=== PATIENT | male | born 1965 | race Caucasian/White ===

== ENCOUNTER 2016-02-18 10:34 | Outpatient (RCR) | payer BC, MEDICARE ==
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
[2016-01-02 10:24] LABS: BASOPHILS # (AUTO) 0.1 10^3/uL (0.0-0.1); BASOPHILS % (AUTO) 2 % (0-10); EOSINOPHILS # (AUTO) 0.3 10^3/uL (0.0-0.3); EOSINOPHILS % (AUTO) 5 % (0-10); LYMPHOCYTES # (AUTO) 1.1 X 10^3 (1.0-4.0); LYMPHOCYTES % (AUTO) 17 % (12-44); MEAN CORPUSCULAR HEMOGLOBIN 31 PG (25-34); MEAN CORPUSCULAR HGB CONC 34 G/DL (32-36); MEAN CORPUSCULAR VOLUME 91 FL (80-99); MEAN PLATELET VOLUME 10.2 FL (7.4-10.4); MONOCYTES # (AUTO) 0.2 X 10^3 (0.0-1.0); MONOCYTES % (AUTO) 3 % (0-12); NEUTROPHILS # (AUTO) 4.9 X 10^3 (1.8-7.8); NEUTROPHILS % (AUTO) 74 % (42-75); PLATELET COUNT 250 10^3/uL (130-400); RED BLOOD COUNT 4.42 10^6/uL (4.35-5.85); RED CELL DISTRIBUTION WIDTH 16.6 % (10.0-14.5); WHITE BLOOD COUNT 6.6 10^3/uL (4.3-11.0)
[2016-01-02 10:57] LABS: ANION GAP 9 MMOL/L (5-14); BLOOD UREA NITROGEN 11 MG/DL (7-18); BUN/CREATININE RATIO 13; CALCIUM 9.4 MG/DL (8.5-10.1); CARBON DIOXIDE 28 MMOL/L (21-32); CHLORIDE 103 MMOL/L (98-107); CREATININE SERUM 0.87 MG/DL (0.60-1.30); GFR ESTIMATED > 60; GLUCOSE 120 MG/DL (70-105); POTASSIUM 4.3 MMOL/L (3.6-5.0); SODIUM 140 MMOL/L (135-145)
[2016-01-14 10:47] LABS: BASOPHILS % (AUTO) 1 % (0-10); EOSINOPHILS # (AUTO) 0.5 10^3/uL (0.0-0.3); EOSINOPHILS % (AUTO) 10 % (0-10); LYMPHOCYTES # (AUTO) 1.3 X 10^3 (1.0-4.0); LYMPHOCYTES % (AUTO) 24 % (12-44); MEAN CORPUSCULAR HEMOGLOBIN 30 PG (25-34); MEAN CORPUSCULAR HGB CONC 33 G/DL (32-36); MEAN CORPUSCULAR VOLUME 92 FL (80-99); MEAN PLATELET VOLUME 9.3 FL (7.4-10.4); MONOCYTES # (AUTO) 0.3 X 10^3 (0.0-1.0); MONOCYTES % (AUTO) 5 % (0-12); NEUTROPHILS # (AUTO) 3.2 X 10^3 (1.8-7.8); NEUTROPHILS % (AUTO) 60 % (42-75); PLATELET COUNT 267 10^3/uL (130-400); RED BLOOD COUNT 4.28 10^6/uL (4.35-5.85); RED CELL DISTRIBUTION WIDTH 15.9 % (10.0-14.5); WHITE BLOOD COUNT 5.4 10^3/uL (4.3-11.0)
[2016-01-14 11:18] LABS: ALANINE AMINOTRANSFERASE 38 U/L (0-55); ALBUMIN 4.5 G/DL (3.2-4.5); ANION GAP 11 MMOL/L (5-14); ASPARTATE AMINO TRANSFERASE 30 U/L (5-34); BILIRUBIN,TOTAL 0.3 MG/DL (0.1-1.0); BLOOD UREA NITROGEN 7 MG/DL (7-18); BUN/CREATININE RATIO 8; CALCIUM 8.9 MG/DL (8.5-10.1); CARBON DIOXIDE 27 MMOL/L (21-32); CHLORIDE 103 MMOL/L (98-107); CREATININE SERUM 0.84 MG/DL (0.60-1.30); GFR ESTIMATED > 60; GLUCOSE 114 MG/DL (70-105); LACTATE DEHYDROGENASE 188 U/L (125-220); POTASSIUM 3.8 MMOL/L (3.6-5.0); SODIUM 141 MMOL/L (135-145); TOTAL PROTEIN 6.9 G/DL (6.4-8.2)
[2016-01-22 06:57] LABS: BCR ABL GENE QT SEE FOOTNOTE
[2016-01-29 13:51] LABS: BASOPHILS # (AUTO) 0.1 10^3/uL (0.0-0.1); BASOPHILS % (AUTO) 1 % (0-10); EOSINOPHILS # (AUTO) 0.4 10^3/uL (0.0-0.3); EOSINOPHILS % (AUTO) 7 % (0-10); LYMPHOCYTES % (AUTO) 36 % (12-44); MEAN CORPUSCULAR HEMOGLOBIN 30 PG (25-34); MEAN CORPUSCULAR HGB CONC 33 G/DL (32-36); MEAN CORPUSCULAR VOLUME 91 FL (80-99); MEAN PLATELET VOLUME 10.3 FL (7.4-10.4); MONOCYTES # (AUTO) 0.4 X 10^3 (0.0-1.0); MONOCYTES % (AUTO) 7 % (0-12); NEUTROPHILS # (AUTO) 2.7 X 10^3 (1.8-7.8); NEUTROPHILS % (AUTO) 49 % (42-75); PLATELET COUNT 228 10^3/uL (130-400); RED BLOOD COUNT 4.49 10^6/uL (4.35-5.85); RED CELL DISTRIBUTION WIDTH 15.2 % (10.0-14.5); WHITE BLOOD COUNT 5.5 10^3/uL (4.3-11.0)
[2016-01-29 14:40] LABS: ANION GAP 8 MMOL/L (5-14); BLOOD UREA NITROGEN 8 MG/DL (7-18); BUN/CREATININE RATIO 10; CALCIUM 9.1 MG/DL (8.5-10.1); CARBON DIOXIDE 28 MMOL/L (21-32); CHLORIDE 106 MMOL/L (98-107); CREATININE SERUM 0.84 MG/DL (0.60-1.30); GFR ESTIMATED > 60; GLUCOSE 111 MG/DL (70-105); POTASSIUM 4.3 MMOL/L (3.6-5.0); SODIUM 142 MMOL/L (135-145)
[2016-02-12 13:50] LABS: BASOPHILS % (AUTO) 1 % (0-10); EOSINOPHILS # (AUTO) 0.4 10^3/uL (0.0-0.3); EOSINOPHILS % (AUTO) 6 % (0-10); LYMPHOCYTES # (AUTO) 1.9 X 10^3 (1.0-4.0); LYMPHOCYTES % (AUTO) 29 % (12-44); MEAN CORPUSCULAR HEMOGLOBIN 30 PG (25-34); MEAN CORPUSCULAR HGB CONC 34 G/DL (32-36); MEAN CORPUSCULAR VOLUME 89 FL (80-99); MEAN PLATELET VOLUME 9.8 FL (7.4-10.4); MONOCYTES # (AUTO) 0.3 X 10^3 (0.0-1.0); MONOCYTES % (AUTO) 5 % (0-12); NEUTROPHILS # (AUTO) 3.8 X 10^3 (1.8-7.8); NEUTROPHILS % (AUTO) 59 % (42-75); PLATELET COUNT 198 10^3/uL (130-400); RED CELL DISTRIBUTION WIDTH 15.1 % (10.0-14.5); WHITE BLOOD COUNT 6.5 10^3/uL (4.3-11.0)
[2016-02-12 14:32] LABS: ANION GAP 10 MMOL/L (5-14); BLOOD UREA NITROGEN 7 MG/DL (7-18); BUN/CREATININE RATIO 8; CALCIUM 8.7 MG/DL (8.5-10.1); CARBON DIOXIDE 24 MMOL/L (21-32); CHLORIDE 106 MMOL/L (98-107); CREATININE SERUM 0.86 MG/DL (0.60-1.30); GFR ESTIMATED > 60; GLUCOSE 75 MG/DL (70-105); POTASSIUM 3.5 MMOL/L (3.6-5.0); SODIUM 140 MMOL/L (135-145)
[~2016-02-18 10:34] MED LIST: AC500T PO; ALPR2TAB6 PO; AMIT25TA9; CHOL40002 PO; CLON0.5T60 PO; CTLP20T PO; DULO30CA48 PO; DULO60CA6 PO; ENAL20TA PO; GABA-726 PO; GABA800T PO; HALO0.5T PO; HYOS0.1216 PO; MORP15TA30 PO; OMEP-10 PO; ONDA-42 SL; OXYC1CAP3 PO; SULF-222 PO; TRIA0.2581 PO; ZLP10T PO
[2016-02-18 10:49] LABS: BASOPHILS # (AUTO) 0.1 10^3/uL (0.0-0.1); BASOPHILS % (AUTO) 1 % (0-10); EOSINOPHILS # (AUTO) 0.4 10^3/uL (0.0-0.3); EOSINOPHILS % (AUTO) 7 % (0-10); LYMPHOCYTES # (AUTO) 1.6 X 10^3 (1.0-4.0); LYMPHOCYTES % (AUTO) 28 % (12-44); MEAN CORPUSCULAR HEMOGLOBIN 30 PG (25-34); MEAN CORPUSCULAR HGB CONC 34 G/DL (32-36); MEAN CORPUSCULAR VOLUME 89 FL (80-99); MEAN PLATELET VOLUME 10.5 FL (7.4-10.4); MONOCYTES # (AUTO) 0.3 X 10^3 (0.0-1.0); MONOCYTES % (AUTO) 5 % (0-12); NEUTROPHILS # (AUTO) 3.5 X 10^3 (1.8-7.8); NEUTROPHILS % (AUTO) 59 % (42-75); PLATELET COUNT 208 10^3/uL (130-400); RED BLOOD COUNT 4.81 10^6/uL (4.35-5.85); RED CELL DISTRIBUTION WIDTH 15.1 % (10.0-14.5); WHITE BLOOD COUNT 5.9 10^3/uL (4.3-11.0)
[2016-02-18 11:13] LABS: ALANINE AMINOTRANSFERASE 39 U/L (0-55); ALBUMIN 4.5 G/DL (3.2-4.5); ANION GAP 9 MMOL/L (5-14); ASPARTATE AMINO TRANSFERASE 32 U/L (5-34); BILIRUBIN,TOTAL 0.3 MG/DL (0.1-1.0); BLOOD UREA NITROGEN 8 MG/DL (7-18); BUN/CREATININE RATIO 9; CALCIUM 9.2 MG/DL (8.5-10.1); CARBON DIOXIDE 28 MMOL/L (21-32); CHLORIDE 103 MMOL/L (98-107); CREATININE SERUM 0.88 MG/DL (0.60-1.30); GFR ESTIMATED > 60; GLUCOSE 111 MG/DL (70-105); LACTATE DEHYDROGENASE 166 U/L (125-220); POTASSIUM 4.2 MMOL/L (3.6-5.0); SODIUM 140 MMOL/L (135-145); TOTAL PROTEIN 6.7 G/DL (6.4-8.2)
== END 2016-04-01 | disposition home or self-care (01) ==
LOC: ONC 10:34
PROVIDERS: ATTEND Internal Medicine Hematology & Oncology
DX: C92.10 Chronic myeloid leukemia, BCR/ABL-positive, not having achieved remission (principal); K76.9 Liver disease, unspecified; F32.9 Major depressive disorder, single episode, unspecified; F41.9 Anxiety disorder, unspecified; G62.9 Polyneuropathy, unspecified; Z87.891 Personal history of nicotine dependence; Z79.899 Other long term (current) drug therapy
CPT/HCPCS: 36415; 80048; 80053; 81206; 83615; 85025; 99213

== ENCOUNTER 2016-06-30 10:18 | Outpatient (RCR) | payer MEDICARE, OTHER ==
[2016-04-07 11:36] LABS: BASOPHILS # (AUTO) 0.1 10^3/uL (0.0-0.1); BASOPHILS % (AUTO) 1 % (0-10); EOSINOPHILS # (AUTO) 0.6 10^3/uL (0.0-0.3); EOSINOPHILS % (AUTO) 10 % (0-10); LYMPHOCYTES # (AUTO) 1.9 X 10^3 (1.0-4.0); LYMPHOCYTES % (AUTO) 30 % (12-44); MEAN CORPUSCULAR HEMOGLOBIN 29 PG (25-34); MEAN CORPUSCULAR HGB CONC 34 G/DL (32-36); MEAN CORPUSCULAR VOLUME 86 FL (80-99); MEAN PLATELET VOLUME 9.4 FL (7.4-10.4); MONOCYTES # (AUTO) 0.4 X 10^3 (0.0-1.0); MONOCYTES % (AUTO) 6 % (0-12); NEUTROPHILS # (AUTO) 3.3 X 10^3 (1.8-7.8); NEUTROPHILS % (AUTO) 53 % (42-75); PLATELET COUNT 296 10^3/uL (130-400); RED CELL DISTRIBUTION WIDTH 15.8 % (10.0-14.5); WHITE BLOOD COUNT 6.3 10^3/uL (4.3-11.0)
--- OUTSIDE RECORDS SUMMARY | 2016-04-07 11:39 | XMS REPORT | Continuity of Care Document ---
Author Author [facility] Organization [facility] Address Unknown Phone Unavailable Care Team Providers Care Fabrication Machine Operator Name Role Phone RON TATE MD PCP Insurance Providers Payer Name Policy Number Subscriber Name Relationship [facility] [id number] Janey East 51 Life Partner Wps Medicare [id number] Weston Dias 16 Self / Same As Patient Advance Directives Directive Response Recorded Date/Time Advance Directives No 09/10/15 7:37am Health Care Power of Day Light Relief Operator No 09/10/15 7:37am Organ Donor No 09/10/15 [...] 7:37am Recent Foreign Travel N [place] 02/12/2016 12:53pm Do you dip or chew tobacco? No 09/10/2015 7:37am Hospital Discharge Instructions No hospital discharge instructions. Plan of Care Prescriptions See Medication Section Functional Status No functional status results. Allergies, Adverse Reactions, Alerts Allergen Type Severity Reaction Status Last Updated carbamazepine ([id number]) Allergy Unknown Active 05/04/14 fentanyl ([id number]) Allergy Unknown Active 05/04/14 PCN Allergy Mild Active 12/05/10 Immunizations No immunization records. Vital Signs No known vital signs results. Results Laboratory Results Test Name Result Units Flags Reference Collection Date/Time Result Date/ Time Comments White Blood Count 5.9 10^3/uL 4.3-11.0 02/18/2016 10:46am 02/18/2016 10 :50am Red Blood Count 4.81 10^6/uL 4.35-5.85 02/18/2016 10:46am 02/18/2016 10 :50am Hemoglobin 14.4 G/DL 13.3-17.7 02/18/2016 10:46am 02/18/2016 10:50am Hematocrit 43 % 40-54 02/18/2016 10:46am 02/18/2016 10:50am Mean Corpuscular Volume 89 FL 80-99 02/18/2016 10:46am 02/18/2016 10: 50am Mean Corpuscular Hemoglobin 30 PG 25-34 02/18/2016 10:46am 02/18/2016 10:50am Mean Corpuscular Hemoglobin Concent 34 G/DL 32-36 02/18/2016 10:46am 10:50am Red Cell Distribution Width 15.1 % H 10.0-14.5 02/18/2016 10:46am 2015 10:50am Platelet Count 208 10^3/uL 130-400 02/18/2016 10:46am 02/18/2016 10: 50am Mean Platelet Volume 10.5 FL H 7.4-10.4 02/18/2016 10:46am 02/18/2016 10: 50am Neutrophils (%) (Auto) 59 % 42-75 02/18/2016 10:46am 02/18/2016 10: 50am Lymphocytes (%) (Auto) 28 % 12-44 02/18/2016 10:46am 02/18/2016 10: 50am Monocytes (%) (Auto) 5 % 0-12 02/18/2016 10:46am 02/18/2016 10:50am Eosinophils (%) (Auto) 7 % 0-10 02/18/2016 10:46am 02/18/2016 10:50am Basophils (%) (Auto) 1 % 0-10 02/18/2016 10:46am 02/18/2016 10:50am Neutrophils # (Auto) 3.5 X 10^3 1.8-7.8 02/18/2016 10:46am 02/18/2016 10:50am Lymphocytes # (Auto) 1.6 X 10^3 1.0-4.0 02/18/2016 10:46am 02/18/2016 10:50am Monocytes # (Auto) 0.3 X 10^3 0.0-1.0 02/18/2016 10:46am 02/18/2016 10: 50am Eosinophils # (Auto) 0.4 10^3/uL H 0.0-0.3 02/18/2016 10:46am 02/18/2016 10:50am Basophils # (Auto) 0.1 10^3/uL 0.0-0.1 02/18/2016 10:46am 02/18/2016 10 :50am Sodium Level 140 MMOL/L 135-145 02/18/2016 10:50am 02/18/2016 11:19am Potassium Level 4.2 MMOL/L 3.6-5.0 02/18/2016 10:50am 02/18/2016 11: 19am Chloride Level 103 MMOL/L 98-107 02/18/2016 10:50am 02/18/2016 11:19am Carbon Dioxide Level 28 MMOL/L 21-32 02/18/2016 10:50am 02/18/2016 11: 19am Anion Gap 9 MMOL/L 5-14 02/18/2016 10:50am 02/18/2016 11:19am Blood Urea Nitrogen 8 MG/DL 7-18 02/18/2016 10:50am 02/18/2016 11:19am Creatinine 0.88 MG/DL 0.60-1.30 02/18/2016 10:50am 02/18/2016 11:19am BUN/Creatinine Ratio 9 02/18/2016 10:50am 02/18/2016 11:19am Estimat Glomerular Filtration Rate > 60 02/18/2016 10:50am 2015 11:19am GFR INTERPRETIVE DATA UNITS FOR ESTIMATED GFR (eGFR): mL/min/1.73 M2 REFERENCE RANGE FOR ESTIMATED GFR (eGFR) eGFR NORMAL eGFR >60 MODERATELY DECREASED eGFR 30-59 SEVERLY DECREASED eGFR 15-29 KIDNEY FAILURE <15 (OR DIALYSIS) Glucose Level 111 MG/DL H 70-105 02/18/2016 10:50am 02/18/2016 11:19am Calcium Level 9.2 MG/DL 8.5-10.1 02/18/2016 10:50am 02/18/2016 11:19am Total Bilirubin 0.3 MG/DL 0.1-1.0 02/18/2016 10:50am 02/18/2016 11: 19am Alkaline Phosphatase 111 U/L 40-136 02/18/2016 10:50am 02/18/2016 11: 19am Aspartate Amino Transf (AST/SGOT) 32 U/L 5-34 02/18/2016 10:50am 2015 11:19am Alanine Aminotransferase (ALT/SGPT) 39 U/L 0-55 02/18/2016 10:50am 11:19am Lactate Dehydrogenase 166 U/L 125-220 02/18/2016 10:50am 02/18/2016 11: 19am Total Protein 6.7 G/DL 6.4-8.2 02/18/2016 10:50am 02/18/2016 11:19am Albumin 4.5 G/DL 3.2-4.5 02/18/2016 10:50am 02/18/2016 11:19am Procedures No known history of procedures. Encounters Encounter Location Arrival/Admit Date Discharge/Depart Date Attending Provider Discharged Recurring [facility] 02/18/16 10:34am 11:59pm MATEUSZ WHITNEY MD
[2016-04-07 12:17] LABS: ALANINE AMINOTRANSFERASE 29 U/L (0-55); ALBUMIN 4.4 G/DL (3.2-4.5); ANION GAP 10 MMOL/L (5-14); ASPARTATE AMINO TRANSFERASE 24 U/L (5-34); BILIRUBIN,TOTAL 0.4 MG/DL (0.1-1.0); BLOOD UREA NITROGEN 9 MG/DL (7-18); BUN/CREATININE RATIO 10; CALCIUM 9.2 MG/DL (8.5-10.1); CARBON DIOXIDE 26 MMOL/L (21-32); CHLORIDE 103 MMOL/L (98-107); CREATININE SERUM 0.86 MG/DL (0.60-1.30); GFR ESTIMATED > 60; GLUCOSE 102 MG/DL (70-105); LACTATE DEHYDROGENASE 166 U/L (125-220); POTASSIUM 4.2 MMOL/L (3.6-5.0); SODIUM 139 MMOL/L (135-145); TOTAL PROTEIN 6.8 G/DL (6.4-8.2)
[2016-04-07 17:06] LABS: %SAT TOTAL IRON BINDING CAPIC 23 % (15-50); TIBC 345 ug/dL (280-380)
[2016-04-08 07:36] LABS: FERRITIN 129 ng/mL (25-300); UIBC 264 ug/dL (55-450)
[2016-04-14 07:55] LABS: BCR ABL GENE QT SEE FOOTNOTE
[2016-05-05 13:11] LABS: BASOPHILS % (AUTO) 1 % (0-10); EOSINOPHILS # (AUTO) 0.6 10^3/uL (0.0-0.3); EOSINOPHILS % (AUTO) 9 % (0-10); LYMPHOCYTES # (AUTO) 2.1 X 10^3 (1.0-4.0); LYMPHOCYTES % (AUTO) 33 % (12-44); MEAN CORPUSCULAR HEMOGLOBIN 30 PG (25-34); MEAN CORPUSCULAR HGB CONC 34 G/DL (32-36); MEAN CORPUSCULAR VOLUME 87 FL (80-99); MEAN PLATELET VOLUME 10.2 FL (7.4-10.4); MONOCYTES # (AUTO) 0.3 X 10^3 (0.0-1.0); MONOCYTES % (AUTO) 5 % (0-12); NEUTROPHILS # (AUTO) 3.3 X 10^3 (1.8-7.8); NEUTROPHILS % (AUTO) 53 % (42-75); PLATELET COUNT 241 10^3/uL (130-400); RED CELL DISTRIBUTION WIDTH 17.4 % (10.0-14.5); WHITE BLOOD COUNT 6.2 10^3/uL (4.3-11.0)
[2016-05-05 13:49] LABS: ALANINE AMINOTRANSFERASE 21 U/L (0-55); ALBUMIN 4.2 G/DL (3.2-4.5); ANION GAP 11 MMOL/L (5-14); ASPARTATE AMINO TRANSFERASE 20 U/L (5-34); BILIRUBIN,TOTAL 0.3 MG/DL (0.1-1.0); BLOOD UREA NITROGEN 6 MG/DL (7-18); BUN/CREATININE RATIO 8; CARBON DIOXIDE 23 MMOL/L (21-32); CHLORIDE 106 MMOL/L (98-107); GFR ESTIMATED > 60; GLUCOSE 111 MG/DL (70-105); POTASSIUM 4.1 MMOL/L (3.6-5.0); SODIUM 140 MMOL/L (135-145); TOTAL PROTEIN 6.5 G/DL (6.4-8.2)
[2016-06-02 13:13] LABS: BASOPHILS % (AUTO) 0 % (0-10); EOSINOPHILS # (AUTO) 0.4 10^3/uL (0.0-0.3); EOSINOPHILS % (AUTO) 7 % (0-10); LYMPHOCYTES % (AUTO) 33 % (12-44); MEAN CORPUSCULAR HEMOGLOBIN 30 PG (25-34); MEAN CORPUSCULAR HGB CONC 34 G/DL (32-36); MEAN CORPUSCULAR VOLUME 90 FL (80-99); MEAN PLATELET VOLUME 10.5 FL (7.4-10.4); MONOCYTES # (AUTO) 0.3 X 10^3 (0.0-1.0); MONOCYTES % (AUTO) 4 % (0-12); NEUTROPHILS # (AUTO) 3.3 X 10^3 (1.8-7.8); NEUTROPHILS % (AUTO) 55 % (42-75); PLATELET COUNT 204 10^3/uL (130-400); RED BLOOD COUNT 4.21 10^6/uL (4.35-5.85); RED CELL DISTRIBUTION WIDTH 15.4 % (10.0-14.5); WHITE BLOOD COUNT 5.9 10^3/uL (4.3-11.0)
[2016-06-02 13:54] LABS: ALANINE AMINOTRANSFERASE 19 U/L (0-55); ALBUMIN 4.2 G/DL (3.2-4.5); ANION GAP 9 MMOL/L (5-14); ASPARTATE AMINO TRANSFERASE 18 U/L (5-34); BILIRUBIN,TOTAL 0.3 MG/DL (0.1-1.0); BLOOD UREA NITROGEN 8 MG/DL (7-18); BUN/CREATININE RATIO 9; CALCIUM 9.3 MG/DL (8.5-10.1); CARBON DIOXIDE 27 MMOL/L (21-32); CHLORIDE 106 MMOL/L (98-107); CREATININE SERUM 0.87 MG/DL (0.60-1.30); GFR ESTIMATED > 60; GLUCOSE 103 MG/DL (70-105); POTASSIUM 4.1 MMOL/L (3.6-5.0); SODIUM 142 MMOL/L (135-145); TOTAL PROTEIN 6.6 G/DL (6.4-8.2)
[2016-06-30 10:37] LABS: BASOPHILS % (AUTO) 0 % (0-10); EOSINOPHILS # (AUTO) 0.2 10^3/uL (0.0-0.3); EOSINOPHILS % (AUTO) 4 % (0-10); LYMPHOCYTES # (AUTO) 1.5 X 10^3 (1.0-4.0); LYMPHOCYTES % (AUTO) 24 % (12-44); MEAN CORPUSCULAR HEMOGLOBIN 31 PG (25-34); MEAN CORPUSCULAR HGB CONC 34 G/DL (32-36); MEAN CORPUSCULAR VOLUME 90 FL (80-99); MEAN PLATELET VOLUME 9.9 FL (7.4-10.4); MONOCYTES # (AUTO) 0.3 X 10^3 (0.0-1.0); MONOCYTES % (AUTO) 5 % (0-12); NEUTROPHILS # (AUTO) 4.3 X 10^3 (1.8-7.8); NEUTROPHILS % (AUTO) 67 % (42-75); PLATELET COUNT 260 10^3/uL (130-400); RED BLOOD COUNT 4.32 10^6/uL (4.35-5.85); RED CELL DISTRIBUTION WIDTH 14.2 % (10.0-14.5); WHITE BLOOD COUNT 6.4 10^3/uL (4.3-11.0)
[2016-06-30 11:36] LABS: ALANINE AMINOTRANSFERASE 11 U/L (0-55); ALBUMIN 4.3 G/DL (3.2-4.5); ANION GAP 9 MMOL/L (5-14); ASPARTATE AMINO TRANSFERASE 13 U/L (5-34); BILIRUBIN,TOTAL 0.4 MG/DL (0.1-1.0); BLOOD UREA NITROGEN 12 MG/DL (7-18); BUN/CREATININE RATIO 15; CALCIUM 8.8 MG/DL (8.5-10.1); CARBON DIOXIDE 27 MMOL/L (21-32); CHLORIDE 106 MMOL/L (98-107); CREATININE SERUM 0.81 MG/DL (0.60-1.30); GFR ESTIMATED > 60; GLUCOSE 100 MG/DL (70-105); SODIUM 142 MMOL/L (135-145); TOTAL PROTEIN 6.8 G/DL (6.4-8.2)
[2016-07-08 08:19] LABS: BCR ABL GENE QT SEE FOOTNOTE
== END 2016-07-06 | disposition home or self-care (01) ==
LOC: ONC 10:18
PROVIDERS: ATTEND Internal Medicine Hematology & Oncology
DX: C92.10 Chronic myeloid leukemia, BCR/ABL-positive, not having achieved remission (principal); K76.9 Liver disease, unspecified; F32.9 Major depressive disorder, single episode, unspecified; F41.9 Anxiety disorder, unspecified; G62.9 Polyneuropathy, unspecified; Z87.891 Personal history of nicotine dependence; Z79.899 Other long term (current) drug therapy
CPT/HCPCS: 36415; 80053; 81206; 82728; 83540; 83615; 85025; 99213

== ENCOUNTER 2016-09-22 11:36 | Emergency (ER) | payer MEDICARE, OTHER ==
[~2016-09-22] VITALS: Ht 165.1 cm; Wt 77.3 kg
[2016-09-22] MEDS ORDERED: POLY17PO6 PO (12:06)
[2016-09-22] MEDS ORDERED: IMAT400T PO (12:06)
[2016-09-22 13:09] LABS: BILIRUBIN,URINE NEGATIVE (NEGATIVE); KETONES,URINE NEGATIVE (NEGATIVE); LEUKOCYTE ESTERASE ,URINE NEGATIVE (NEGATIVE); NITRITE,URINE NEGATIVE (NEGATIVE); PH,URINE 8 (5-9); PROTEIN,URINE NEGATIVE (NEGATIVE); UROBILINOGEN,URINE NORMAL (NORMAL)
[2016-09-22 13:10] LABS: BASOPHILS % (AUTO) 0 % (0-10); EOSINOPHILS # (AUTO) 0.3 10^3/uL (0.0-0.3); EOSINOPHILS % (AUTO) 4 % (0-10); LYMPHOCYTES # (AUTO) 1.3 X 10^3 (1.0-4.0); LYMPHOCYTES % (AUTO) 22 % (12-44); MEAN CORPUSCULAR HEMOGLOBIN 30 PG (25-34); MEAN CORPUSCULAR HGB CONC 33 G/DL (32-36); MEAN CORPUSCULAR VOLUME 88 FL (80-99); MEAN PLATELET VOLUME 10.7 FL (7.4-10.4); MONOCYTES # (AUTO) 0.3 X 10^3 (0.0-1.0); MONOCYTES % (AUTO) 5 % (0-12); NEUTROPHILS # (AUTO) 4.2 X 10^3 (1.8-7.8); NEUTROPHILS % (AUTO) 69 % (42-75); PLATELET COUNT 262 10^3/uL (130-400); RED BLOOD COUNT 4.37 10^6/uL (4.35-5.85); RED CELL DISTRIBUTION WIDTH 15.1 % (10.0-14.5)
[2016-09-22 13:25] LABS: ALANINE AMINOTRANSFERASE 13 U/L (0-55); ALBUMIN 4.2 GM/DL (3.2-4.5); ANION GAP 7 MMOL/L (5-14); ASPARTATE AMINO TRANSFERASE 14 U/L (5-34); BILIRUBIN,TOTAL 0.4 MG/DL (0.1-1.0); BLOOD UREA NITROGEN 9 MG/DL (7-18); BUN/CREATININE RATIO 11; CALCIUM 9.3 MG/DL (8.5-10.1); CARBON DIOXIDE 27 MMOL/L (21-32); CHLORIDE 105 MMOL/L (98-107); CREATININE SERUM 0.83 MG/DL (0.60-1.30); GFR ESTIMATED > 60; GLUCOSE 104 MG/DL (70-105); LIPASE 25 U/L (8-78); POTASSIUM 4.1 MMOL/L (3.6-5.0); SODIUM 139 MMOL/L (135-145); TOTAL PROTEIN 7.1 GM/DL (6.4-8.2); hs C REACTIVE PROTEIN 2.12 MG/DL (0.00-0.50)
[2016-09-22] MEDS ORDERED: IOHEXOL 350 MG/ML 100 ML (OMNIPAQUE 350) VIAL IV ONE (13:45)
[2016-09-22] MEDS ORDERED: NS 100 ML (IVPB) BAG IV ONE (13:45)
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
[2016-09-22] MEDS ORDERED: HYOSCYAMINE 0.125 MG (LEVSIN) TAB SL ONE (14:30)
[2016-09-22] MEDS ORDERED: KETOROLAC 30 MG/ML VIAL IVP ONE (14:30)
[2016-09-22] MEDS ORDERED: RX-HYOSCYAMINE 0.125 MG SL (LEVSIN) PPK#6 SL STA (15:20)
[2016-09-22] MEDS ORDERED: HYOS0.1283 SL (15:25)
[2016-09-22] MEDS ORDERED: SULF1TAB35 PO (15:26)
[2016-09-22] MEDS ORDERED: TRIM/SULFAMETH 160/800 (SEPTRA DS) TAB PO ONE (15:30)
[2016-09-22 15:40] VITALS: BP 116/75
== END 2016-09-22 15:39 | disposition home or self-care (01) ==
LOC: EDUNIT# 11:36 → ER 11:40
DX: T81.4XXA Infection following a procedure, initial encounter (principal); L08.9 Local infection of the skin and subcutaneous tissue, unspecified; I25.10 Atherosclerotic heart disease of native coronary artery without angina pectoris; F41.9 Anxiety disorder, unspecified; I10 Essential (primary) hypertension; K21.9 Gastro-esophageal reflux disease without esophagitis; F17.210 Nicotine dependence, cigarettes, uncomplicated; Z93.3 Colostomy status; Z85.6 Personal history of leukemia; Z87.828 Personal history of other (healed) physical injury and trauma; Z98.890 Other specified postprocedural states
CPT/HCPCS: 36415; 74177; 80053; 81000; 83690; 85025; 86141; 87070; 87205; 96374

== ENCOUNTER 2016-10-13 13:14 | Outpatient (RCR) | payer MEDICARE ==
[2016-08-04 11:04] LABS: BASOPHILS % (AUTO) 0 % (0-10); EOSINOPHILS # (AUTO) 0.5 10^3/uL (0.0-0.3); EOSINOPHILS % (AUTO) 7 % (0-10); LYMPHOCYTES # (AUTO) 2.1 X 10^3 (1.0-4.0); LYMPHOCYTES % (AUTO) 27 % (12-44); MEAN CORPUSCULAR HEMOGLOBIN 30 PG (25-34); MEAN CORPUSCULAR HGB CONC 34 G/DL (32-36); MEAN CORPUSCULAR VOLUME 90 FL (80-99); MEAN PLATELET VOLUME 10.1 FL (7.4-10.4); MONOCYTES # (AUTO) 0.3 X 10^3 (0.0-1.0); MONOCYTES % (AUTO) 4 % (0-12); NEUTROPHILS # (AUTO) 4.8 X 10^3 (1.8-7.8); NEUTROPHILS % (AUTO) 62 % (42-75); PLATELET COUNT 261 10^3/uL (130-400); RED BLOOD COUNT 4.27 10^6/uL (4.35-5.85); RED CELL DISTRIBUTION WIDTH 15.2 % (10.0-14.5); WHITE BLOOD COUNT 7.7 10^3/uL (4.3-11.0)
[2016-08-04 11:52] LABS: ALANINE AMINOTRANSFERASE 16 U/L (0-55); ALBUMIN 4.2 G/DL (3.2-4.5); ANION GAP 8 MMOL/L (5-14); ASPARTATE AMINO TRANSFERASE 17 U/L (5-34); BILIRUBIN,TOTAL 0.3 MG/DL (0.1-1.0); BLOOD UREA NITROGEN 8 MG/DL (7-18); BUN/CREATININE RATIO 9; CALCIUM 9.4 MG/DL (8.5-10.1); CARBON DIOXIDE 30 MMOL/L (21-32); CHLORIDE 105 MMOL/L (98-107); CREATININE SERUM 0.86 MG/DL (0.60-1.30); GFR ESTIMATED > 60; GLUCOSE 96 MG/DL (70-105); POTASSIUM 4.1 MMOL/L (3.6-5.0); SODIUM 143 MMOL/L (135-145); TOTAL PROTEIN 6.6 G/DL (6.4-8.2)
[2016-08-25 14:32] LABS: BASOPHILS % (AUTO) 1 % (0-10); EOSINOPHILS # (AUTO) 0.4 10^3/uL (0.0-0.3); EOSINOPHILS % (AUTO) 6 % (0-10); LYMPHOCYTES # (AUTO) 1.7 X 10^3 (1.0-4.0); LYMPHOCYTES % (AUTO) 27 % (12-44); MEAN CORPUSCULAR HEMOGLOBIN 30 PG (25-34); MEAN CORPUSCULAR HGB CONC 34 G/DL (32-36); MEAN CORPUSCULAR VOLUME 88 FL (80-99); MEAN PLATELET VOLUME 10.4 FL (7.4-10.4); MONOCYTES # (AUTO) 0.5 X 10^3 (0.0-1.0); MONOCYTES % (AUTO) 7 % (0-12); NEUTROPHILS # (AUTO) 3.7 X 10^3 (1.8-7.8); NEUTROPHILS % (AUTO) 59 % (42-75); PLATELET COUNT 242 10^3/uL (130-400); RED CELL DISTRIBUTION WIDTH 15.8 % (10.0-14.5); WHITE BLOOD COUNT 6.2 10^3/uL (4.3-11.0)
[2016-08-25 15:06] LABS: ALANINE AMINOTRANSFERASE 9 U/L (0-55); ALBUMIN 4.1 G/DL (3.2-4.5); ANION GAP 10 MMOL/L (5-14); ASPARTATE AMINO TRANSFERASE 11 U/L (5-34); BILIRUBIN,TOTAL 0.3 MG/DL (0.1-1.0); BLOOD UREA NITROGEN 12 MG/DL (7-18); BUN/CREATININE RATIO 14; CALCIUM 9.1 MG/DL (8.5-10.1); CARBON DIOXIDE 27 MMOL/L (21-32); CHLORIDE 106 MMOL/L (98-107); CREATININE SERUM 0.86 MG/DL (0.60-1.30); GFR ESTIMATED > 60; GLUCOSE 98 MG/DL (70-105); POTASSIUM 4.3 MMOL/L (3.6-5.0); SODIUM 143 MMOL/L (135-145); TOTAL PROTEIN 6.5 G/DL (6.4-8.2)
[~2016-10-13 13:14] MED LIST changes: +HYOS0.1283 SL; +IMAT400T PO; +POLY17PO6 PO; +SULF1TAB35 PO
[2016-10-13 13:57] LABS: BASOPHILS % (AUTO) 1 % (0-10); EOSINOPHILS # (AUTO) 0.4 10^3/uL (0.0-0.3); EOSINOPHILS % (AUTO) 8 % (0-10); LYMPHOCYTES # (AUTO) 2.1 X 10^3 (1.0-4.0); LYMPHOCYTES % (AUTO) 39 % (12-44); MEAN CORPUSCULAR HEMOGLOBIN 30 PG (25-34); MEAN CORPUSCULAR HGB CONC 33 G/DL (32-36); MEAN CORPUSCULAR VOLUME 91 FL (80-99); MEAN PLATELET VOLUME 9.9 FL (7.4-10.4); MONOCYTES # (AUTO) 0.3 X 10^3 (0.0-1.0); MONOCYTES % (AUTO) 6 % (0-12); NEUTROPHILS # (AUTO) 2.5 X 10^3 (1.8-7.8); NEUTROPHILS % (AUTO) 47 % (42-75); PLATELET COUNT 237 10^3/uL (130-400); RED BLOOD COUNT 3.76 10^6/uL (4.35-5.85); RED CELL DISTRIBUTION WIDTH 16.4 % (10.0-14.5); WHITE BLOOD COUNT 5.3 10^3/uL (4.3-11.0)
[2016-10-13 14:27] LABS: ALANINE AMINOTRANSFERASE 14 U/L (0-55); ALBUMIN 4.1 GM/DL (3.2-4.5); ANION GAP 10 MMOL/L (5-14); ASPARTATE AMINO TRANSFERASE 15 U/L (5-34); BILIRUBIN,TOTAL 0.2 MG/DL (0.1-1.0); BLOOD UREA NITROGEN 10 MG/DL (7-18); BUN/CREATININE RATIO 12; CALCIUM 8.6 MG/DL (8.5-10.1); CARBON DIOXIDE 24 MMOL/L (21-32); CHLORIDE 105 MMOL/L (98-107); CREATININE SERUM 0.84 MG/DL (0.60-1.30); GFR ESTIMATED > 60; GLUCOSE 84 MG/DL (70-105); POTASSIUM 3.8 MMOL/L (3.6-5.0); SODIUM 139 MMOL/L (135-145); TOTAL PROTEIN 6.4 GM/DL (6.4-8.2)
[2016-10-20 16:04] LABS: BCR ABL GENE QT See Report
== END 2016-11-02 | disposition home or self-care (01) ==
LOC: ONC 13:14
PROVIDERS: ATTEND Internal Medicine Hematology & Oncology
DX: C92.10 Chronic myeloid leukemia, BCR/ABL-positive, not having achieved remission (principal); D64.9 Anemia, unspecified; K76.9 Liver disease, unspecified; F32.9 Major depressive disorder, single episode, unspecified; F41.9 Anxiety disorder, unspecified; G62.9 Polyneuropathy, unspecified; R42 Dizziness and giddiness; Z87.891 Personal history of nicotine dependence; Z79.899 Other long term (current) drug therapy
CPT/HCPCS: 36415; 80053; 81206; 82728; 83540; 85025; 99213

== ENCOUNTER 2016-11-13 08:42 | Outpatient (RCR) | payer MEDICARE, OTHER ==
[2016-11-13 08:40] LABS: BASOPHILS % (AUTO) 1 % (0-10); EOSINOPHILS # (AUTO) 0.7 10^3/uL (0.0-0.3); EOSINOPHILS % (AUTO) 10 % (0-10); LYMPHOCYTES # (AUTO) 2.3 X 10^3 (1.0-4.0); LYMPHOCYTES % (AUTO) 31 % (12-44); MEAN CORPUSCULAR HEMOGLOBIN 31 PG (25-34); MEAN CORPUSCULAR HGB CONC 34 G/DL (32-36); MEAN CORPUSCULAR VOLUME 91 FL (80-99); MEAN PLATELET VOLUME 11.1 FL (7.4-10.4); MONOCYTES # (AUTO) 0.4 X 10^3 (0.0-1.0); MONOCYTES % (AUTO) 5 % (0-12); NEUTROPHILS # (AUTO) 3.8 X 10^3 (1.8-7.8); NEUTROPHILS % (AUTO) 53 % (42-75); PLATELET COUNT 222 10^3/uL (130-400); RED BLOOD COUNT 4.41 10^6/uL (4.35-5.85); RED CELL DISTRIBUTION WIDTH 15.5 % (10.0-14.5); WHITE BLOOD COUNT 7.2 10^3/uL (4.3-11.0)
[~2016-11-13 08:42] MED LIST changes: -CATHETER FLUSH 10 ML SYR IV PRN; -IOHEXOL 350 MG/ML 100 ML (OMNIPAQUE 350) VIAL IV ONE; -NS 100 ML (IVPB) BAG IV ONE
[2016-11-13 09:03] LABS: ALANINE AMINOTRANSFERASE 11 U/L (0-55); ALBUMIN 4.1 GM/DL (3.2-4.5); ANION GAP 8 MMOL/L (5-14); ASPARTATE AMINO TRANSFERASE 17 U/L (5-34); BILIRUBIN,TOTAL 0.2 MG/DL (0.1-1.0); BLOOD UREA NITROGEN 11 MG/DL (7-18); BUN/CREATININE RATIO 13; CALCIUM 8.6 MG/DL (8.5-10.1); CARBON DIOXIDE 26 MMOL/L (21-32); CHLORIDE 106 MMOL/L (98-107); CREATININE SERUM 0.84 MG/DL (0.60-1.30); GFR ESTIMATED > 60; GLUCOSE 105 MG/DL (70-105); SODIUM 140 MMOL/L (135-145); TOTAL PROTEIN 6.2 GM/DL (6.4-8.2)
== END 2016-12-19 | disposition home or self-care (01) ==
LOC: ONC 08:42
PROVIDERS: ATTEND Internal Medicine Hematology & Oncology
DX: K76.9 Liver disease, unspecified; Z87.891 Personal history of nicotine dependence; Z79.899 Other long term (current) drug therapy; D64.9 Anemia, unspecified; C92.10 Chronic myeloid leukemia, BCR/ABL-positive, not having achieved remission; R42 Dizziness and giddiness; F41.9 Anxiety disorder, unspecified; F32.9 Major depressive disorder, single episode, unspecified; G62.9 Polyneuropathy, unspecified
CPT/HCPCS: 80053; 85025

== ENCOUNTER → 2016-11-13 | Outpatient (CLI) | payer MEDICARE, OTHER ==
[~2016-11-13] MED LIST changes: +CATHETER FLUSH 10 ML SYR IV PRN; +IOHEXOL 350 MG/ML 100 ML (OMNIPAQUE 350) VIAL IV ONE; +NS 100 ML (IVPB) BAG IV ONE
--- NOTE | 2016-11-13 14:37 | Diagnostic Imaging Report ---
PROCEDURE: CT cervical spine with and without contrast. TECHNIQUE: Multiple axial images were obtained through the cervical spine with and without intravenous contrast, with two dimensional reconstructions INDICATION: Neck pain. FINDINGS: The reconstructed parasagittal images show reversal of the normal lordosis of the cervical spine. The reversal of the normal lordosis of the cervical spine is even more pronounced than noted on the prior CT cervical spine exam of 02/22/15. As seen on the prior exam, there is near-complete obliteration of the disc space at C4-C5. This may be related to the so-called "block vertebra" a failure segmentation and a congenital anomaly. There is also severe narrowing of the disc space at C5-C6 and to a lesser extent C6-C7. These findings are similar to the prior exam. There does seem to be mild narrowing of the thecal sac at the C5-C6 and C6-C7 levels and there is also narrowing of the neuroforamen on the left at both of these levels. There is no fracture or acute bony abnormality identified. There is no sign of retropharyngeal edema. The thyroid gland is generally unremarkable. The lung apices are clear. IMPRESSION: 1. There is no evidence for an acute bony abnormality. 2. 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 3. The degenerative disc and bony disease at C5-C6 and C6-C7 seen on the prior study has not progressed. There is mild central stenosis at both of these levels and narrowing of the neuroforamen on the left. Dictated by: Dictated on workstation # [id number]
== END ==
LOC: RAD 08:12
PROVIDERS: ATTEND Family Medicine
DX: M50.322 Other cervical disc degeneration at C5-C6 level (principal); M53.82 Other specified dorsopathies, cervical region
CPT/HCPCS: 72127

== ENCOUNTER 2017-01-05 11:18 | Outpatient (RCR) | payer MEDICARE, OTHER ==
[2017-01-05 11:26] LABS: BASOPHILS % (AUTO) 0 % (0-10); EOSINOPHILS # (AUTO) 0.3 10^3/uL (0.0-0.3); EOSINOPHILS % (AUTO) 5 % (0-10); HEMATOCRIT 38 % (40-54); HEMOGLOBIN 12.8 G/DL (13.3-17.7); LYMPHOCYTES # (AUTO) 1.6 X 10^3 (1.0-4.0); LYMPHOCYTES % (AUTO) 28 % (12-44); MEAN CORPUSCULAR HEMOGLOBIN 31 PG (25-34); MEAN CORPUSCULAR HGB CONC 34 G/DL (32-36); MEAN CORPUSCULAR VOLUME 92 FL (80-99); MEAN PLATELET VOLUME 11.1 FL (7.4-10.4); MONOCYTES # (AUTO) 0.2 X 10^3 (0.0-1.0); MONOCYTES % (AUTO) 4 % (0-12); NEUTROPHILS # (AUTO) 3.4 X 10^3 (1.8-7.8); NEUTROPHILS % (AUTO) 62 % (42-75); PLATELET COUNT 182 10^3/uL (130-400); RED BLOOD COUNT 4.13 10^6/uL (4.35-5.85); RED CELL DISTRIBUTION WIDTH 14.6 % (10.0-14.5); WHITE BLOOD COUNT 5.5 10^3/uL (4.3-11.0)
[2017-01-05 11:46] LABS: ALANINE AMINOTRANSFERASE 11 U/L (0-55); ALBUMIN 4.1 GM/DL (3.2-4.5); ALKALINE PHOSPHATASE 63 U/L (40-136); BILIRUBIN,TOTAL 0.4 MG/DL (0.1-1.0); BUN/CREATININE RATIO 16; CALCIUM 8.7 MG/DL (8.5-10.1); CARBON DIOXIDE 26 MMOL/L (21-32); CHLORIDE 106 MMOL/L (98-107); CREATININE SERUM 0.79 MG/DL (0.60-1.30); GFR ESTIMATED > 60; GLUCOSE 88 MG/DL (70-105); SODIUM 139 MMOL/L (135-145); TOTAL PROTEIN 6.6 GM/DL (6.4-8.2)
[2017-04-06 13:20] LABS: BASOPHILS % (AUTO) 1 % (0-10); EOSINOPHILS # (AUTO) 0.5 10^3/uL (0.0-0.3); EOSINOPHILS % (AUTO) 7 % (0-10); HEMATOCRIT 41 % (40-54); HEMOGLOBIN 14.1 G/DL (13.3-17.7); LYMPHOCYTES # (AUTO) 2.2 X 10^3 (1.0-4.0); LYMPHOCYTES % (AUTO) 33 % (12-44); MEAN CORPUSCULAR HEMOGLOBIN 32 PG (25-34); MEAN CORPUSCULAR HGB CONC 35 G/DL (32-36); MEAN CORPUSCULAR VOLUME 91 FL (80-99); MEAN PLATELET VOLUME 10.7 FL (7.4-10.4); MONOCYTES # (AUTO) 0.3 X 10^3 (0.0-1.0); MONOCYTES % (AUTO) 5 % (0-12); NEUTROPHILS # (AUTO) 3.6 X 10^3 (1.8-7.8); NEUTROPHILS % (AUTO) 55 % (42-75); PLATELET COUNT 228 10^3/uL (130-400); RED BLOOD COUNT 4.45 10^6/uL (4.35-5.85); RED CELL DISTRIBUTION WIDTH 14.5 % (10.0-14.5); WHITE BLOOD COUNT 6.6 10^3/uL (4.3-11.0)
[2017-04-06 13:41] LABS: ALANINE AMINOTRANSFERASE 13 U/L (0-55); ALBUMIN 4.5 GM/DL (3.2-4.5); ALKALINE PHOSPHATASE 81 U/L (40-136); BILIRUBIN,TOTAL 0.4 MG/DL (0.1-1.0); BUN/CREATININE RATIO 13; CALCIUM 9.4 MG/DL (8.5-10.1); CARBON DIOXIDE 27 MMOL/L (21-32); CHLORIDE 102 MMOL/L (98-107); CREATININE SERUM 0.86 MG/DL (0.60-1.30); GFR ESTIMATED > 60; GLUCOSE 98 MG/DL (70-105); POTASSIUM 3.9 MMOL/L (3.6-5.0); SODIUM 142 MMOL/L (135-145); TOTAL PROTEIN 7.2 GM/DL (6.4-8.2)
== END 2017-04-05 | disposition home or self-care (01) ==
LOC: ONC 11:18
PROVIDERS: ATTEND Internal Medicine Hematology & Oncology
DX: C92.10 Chronic myeloid leukemia, BCR/ABL-positive, not having achieved remission (principal); D64.9 Anemia, unspecified; K76.9 Liver disease, unspecified; F32.9 Major depressive disorder, single episode, unspecified; F41.9 Anxiety disorder, unspecified; G62.9 Polyneuropathy, unspecified; R42 Dizziness and giddiness; Z87.891 Personal history of nicotine dependence; Z79.899 Other long term (current) drug therapy
CPT/HCPCS: 36415; 80053; 85025; 99213

== ENCOUNTER 2017-04-06 13:06 | Outpatient (RCR) | payer MEDICARE, OTHER ==
[~2017-04-06 13:06] MED LIST changes: -IOHEXOL 350 MG/ML 100 ML (OMNIPAQUE 350) VIAL IV ONE; -NS 100 ML (IVPB) BAG IV ONE
== END 2017-07-05 | disposition home or self-care (01) ==
LOC: ONC 13:06
PROVIDERS: ATTEND Internal Medicine Hematology & Oncology
DX: C92.10 Chronic myeloid leukemia, BCR/ABL-positive, not having achieved remission (principal); D64.9 Anemia, unspecified; K76.9 Liver disease, unspecified; F32.9 Major depressive disorder, single episode, unspecified; F41.9 Anxiety disorder, unspecified; G62.9 Polyneuropathy, unspecified; R42 Dizziness and giddiness; Z87.891 Personal history of nicotine dependence; Z79.899 Other long term (current) drug therapy
CPT/HCPCS: 99213

== ENCOUNTER → 2017-04-06 | Outpatient (CLI) | payer MEDICARE, OTHER ==
[~2017-04-06] MED LIST changes: +IOHEXOL 350 MG/ML 100 ML (OMNIPAQUE 350) VIAL IV ONE; +NS 100 ML (IVPB) BAG IV ONE
--- NOTE | 2017-04-06 15:15 | Diagnostic Imaging Report ---
PROCEDURE: CT head with and without contrast. TECHNIQUE: Multiple contiguous axial images were obtained through the brain before and after the administration of intravenous contrast. INDICATION: Transient paralysis of limb. FINDINGS: There is no mass, shift of the midline, or hemorrhage to suggest an acute intracranial abnormality. The normal tentorial blush is noted. There is no abnormal enhancement on the post contrast series to indicate a neoplastic or infectious process. The ventricles are not abnormally dilated and stable in size when compared to the prior exam of 02/25/2008. In the interval since the prior study, a minute 2-3 mm area of diminished density has developed in the caudate nucleus on the left. 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 The bone windows show no sign of a fracture or of a destructive lesion. The orbits are symmetrical and within normal limits. The sinuses where visualized are generally clear. IMPRESSION: 1. There is no evidence for an acute intracranial abnormality. There is no abnormal enhancement to suggest a neoplastic or infectious process either. 2. If clinical concern regarding an underlying abnormality persists, then MRI would be recommended for further study. Dictated on workstation # [id number]
== END ==
LOC: RAD 14:18
PROVIDERS: ATTEND Family Medicine
DX: F44.6 Conversion disorder with sensory symptom or deficit (principal); G47.00 Insomnia, unspecified; R29.818 Other symptoms and signs involving the nervous system
CPT/HCPCS: 70470

== ENCOUNTER → 2017-09-06 | Outpatient (CLI) | payer MEDICARE, OTHER ==
[2017-09-06 17:37] LABS: BASOPHILS # (AUTO) 0.1 10^3/uL (0.0-0.1); BASOPHILS % (AUTO) 1 % (0-10); EOSINOPHILS # (AUTO) 0.5 10^3/uL (0.0-0.3); EOSINOPHILS % (AUTO) 7 % (0-10); HEMATOCRIT 41 % (40-54); HEMOGLOBIN 14.4 G/DL (13.3-17.7); LYMPHOCYTES # (AUTO) 2.5 X 10^3 (1.0-4.0); LYMPHOCYTES % (AUTO) 32 % (12-44); MEAN CORPUSCULAR HEMOGLOBIN 32 PG (25-34); MEAN CORPUSCULAR HGB CONC 35 G/DL (32-36); MEAN CORPUSCULAR VOLUME 90 FL (80-99); MEAN PLATELET VOLUME 10.3 FL (7.4-10.4); MONOCYTES # (AUTO) 0.4 X 10^3 (0.0-1.0); MONOCYTES % (AUTO) 6 % (0-12); NEUTROPHILS # (AUTO) 4.1 X 10^3 (1.8-7.8); NEUTROPHILS % (AUTO) 55 % (42-75); PLATELET COUNT 287 10^3/uL (130-400); RED BLOOD COUNT 4.53 10^6/uL (4.35-5.85); RED CELL DISTRIBUTION WIDTH 13.7 % (10.0-14.5); WHITE BLOOD COUNT 7.6 10^3/uL (4.3-11.0)
[2017-09-06 17:57] LABS: ALANINE AMINOTRANSFERASE 19 U/L (0-55); ALBUMIN 4.7 GM/DL (3.2-4.5); ALKALINE PHOSPHATASE 79 U/L (40-136); BILIRUBIN,TOTAL 0.4 MG/DL (0.1-1.0); BUN/CREATININE RATIO 14; CALCIUM 9.8 MG/DL (8.5-10.1); CARBON DIOXIDE 25 MMOL/L (21-32); CHLORIDE 105 MMOL/L (98-107); CREATININE SERUM 0.81 MG/DL (0.60-1.30); GFR ESTIMATED > 60; GLUCOSE 95 MG/DL (70-105); POTASSIUM 4.1 MMOL/L (3.6-5.0); SODIUM 141 MMOL/L (135-145); TOTAL PROTEIN 7.3 GM/DL (6.4-8.2)
== END ==
LOC: LAB 17:23
PROVIDERS: ATTEND Nurse Practitioner Family
DX: R11.2 Nausea with vomiting, unspecified (principal)
CPT/HCPCS: 36415; 80053; 85025

== ENCOUNTER 2017-09-28 13:15 | Outpatient (RCR) | payer MEDICARE, OTHER ==
[2017-07-06 13:36] LABS: BASOPHILS % (AUTO) 0 % (0-10); EOSINOPHILS # (AUTO) 0.4 10^3/uL (0.0-0.3); EOSINOPHILS % (AUTO) 5 % (0-10); HEMATOCRIT 38 % (40-54); HEMOGLOBIN 13.1 G/DL (13.3-17.7); LYMPHOCYTES # (AUTO) 2.3 X 10^3 (1.0-4.0); LYMPHOCYTES % (AUTO) 28 % (12-44); MEAN CORPUSCULAR HEMOGLOBIN 32 PG (25-34); MEAN CORPUSCULAR HGB CONC 34 G/DL (32-36); MEAN CORPUSCULAR VOLUME 93 FL (80-99); MEAN PLATELET VOLUME 10.1 FL (7.4-10.4); MONOCYTES # (AUTO) 0.3 X 10^3 (0.0-1.0); MONOCYTES % (AUTO) 4 % (0-12); NEUTROPHILS % (AUTO) 63 % (42-75); PLATELET COUNT 268 10^3/uL (130-400); RED BLOOD COUNT 4.13 10^6/uL (4.35-5.85)
[2017-07-06 13:53] LABS: ALANINE AMINOTRANSFERASE 14 U/L (0-55); ALBUMIN 4.4 GM/DL (3.2-4.5); ALKALINE PHOSPHATASE 78 U/L (40-136); BILIRUBIN,TOTAL 0.5 MG/DL (0.1-1.0); BUN/CREATININE RATIO 11; CALCIUM 9.2 MG/DL (8.5-10.1); CARBON DIOXIDE 30 MMOL/L (21-32); CHLORIDE 102 MMOL/L (98-107); CREATININE SERUM 0.89 MG/DL (0.60-1.30); GFR ESTIMATED > 60; GLUCOSE 90 MG/DL (70-105); POTASSIUM 3.9 MMOL/L (3.6-5.0); SODIUM 138 MMOL/L (135-145); TOTAL PROTEIN 6.9 GM/DL (6.4-8.2)
[2017-09-28 13:33] LABS: BASOPHILS % (AUTO) 0 % (0-10); EOSINOPHILS # (AUTO) 0.6 10^3/uL (0.0-0.3); EOSINOPHILS % (AUTO) 9 % (0-10); HEMATOCRIT 40 % (40-54); LYMPHOCYTES # (AUTO) 1.9 X 10^3 (1.0-4.0); LYMPHOCYTES % (AUTO) 29 % (12-44); MEAN CORPUSCULAR HEMOGLOBIN 32 PG (25-34); MEAN CORPUSCULAR HGB CONC 35 G/DL (32-36); MEAN CORPUSCULAR VOLUME 90 FL (80-99); MEAN PLATELET VOLUME 11.1 FL (7.4-10.4); MONOCYTES # (AUTO) 0.3 X 10^3 (0.0-1.0); MONOCYTES % (AUTO) 5 % (0-12); NEUTROPHILS # (AUTO) 3.9 X 10^3 (1.8-7.8); NEUTROPHILS % (AUTO) 58 % (42-75); PLATELET COUNT 181 10^3/uL (130-400); RED BLOOD COUNT 4.39 10^6/uL (4.35-5.85); RED CELL DISTRIBUTION WIDTH 14.2 % (10.0-14.5); WHITE BLOOD COUNT 6.8 10^3/uL (4.3-11.0)
[2017-09-28 13:49] LABS: ALANINE AMINOTRANSFERASE 13 U/L (0-55); ALBUMIN 4.2 GM/DL (3.2-4.5); ALKALINE PHOSPHATASE 69 U/L (40-136); BILIRUBIN,TOTAL 0.3 MG/DL (0.1-1.0); BUN/CREATININE RATIO 11; CALCIUM 9.1 MG/DL (8.5-10.1); CARBON DIOXIDE 25 MMOL/L (21-32); CHLORIDE 108 MMOL/L (98-107); CREATININE SERUM 0.92 MG/DL (0.60-1.30); GFR ESTIMATED > 60; GLUCOSE 111 MG/DL (70-105); POTASSIUM 3.7 MMOL/L (3.6-5.0); SODIUM 142 MMOL/L (135-145); TOTAL PROTEIN 6.4 GM/DL (6.4-8.2)
== END 2017-10-04 | disposition home or self-care (01) ==
LOC: ONC 13:15
PROVIDERS: ATTEND Internal Medicine Hematology & Oncology
DX: C92.10 Chronic myeloid leukemia, BCR/ABL-positive, not having achieved remission (principal); D64.9 Anemia, unspecified; K76.9 Liver disease, unspecified; F32.9 Major depressive disorder, single episode, unspecified; F41.9 Anxiety disorder, unspecified; G62.9 Polyneuropathy, unspecified; R42 Dizziness and giddiness; Z87.891 Personal history of nicotine dependence; Z79.899 Other long term (current) drug therapy
CPT/HCPCS: 36415; 80053; 85025; 99213

== ENCOUNTER → 2017-11-02 | Outpatient (CLI) | payer MEDICARE, OTHER | LOC: CARD 10:28 | PROVIDERS: ATTEND Internal Medicine Cardiovascular Disease | DX: I10 Essential (primary) hypertension (principal); R07.89 Other chest pain; M79.1 Myalgia; F43.21 Adjustment disorder with depressed mood | CPT/HCPCS: 93306 ==

== ENCOUNTER → 2017-11-03 | Outpatient (CLI) | payer MEDICARE, OTHER ==
[~2017-11-03] VITALS: Ht 160 cm; Wt 74.8 kg
[~2017-11-03] MED LIST changes: +CATHETER FLUSH 10 ML SYR IV PRN; +REGADENOSON 0.4 MG/5 ML SYR (LEXISCAN) IV ONE
[2017-11-03 13:22] VITALS: BP 128/79
--- NOTE | 2017-11-04 11:08 | STRESS TEST ---
DATE OF SERVICE: 11/03/2017 LEXISCAN MYOVIEW STRESS TEST REPORT REFERRING PHYSICIAN: Parish Breuax MD Baseline heart rate is 63. Baseline blood pressure 120/77. Baseline EKG is sinus rhythm with no ischemic changes. In summary, the patient was injected with 10.79 mCi of technetium-99 Myoview and the resting images were obtained. Then, the patient received 0.4 mg of Lexiscan followed by 32.4 mCi of technetium-99 Myoview. Throughout the test, there were no EKG changes. The resting and stress images were reviewed and compared in the short axis, horizontal long axis, and vertical long axis views. Review of the images showed diaphragmatic attenuation with mild ischemia involving the mid to apical inferior wall. SSS is 5, SDS 4, TID value 0.99. On the gated images, the left ventricle appeared to be in normal size with normal contractility. Calculated ejection fraction 52%. CONCLUSION: 1. The patient tolerated Lexiscan well. 2. Diaphragmatic attenuation with mild ischemia involving the mid to apical inferior wall. 3. Normal left ventricular size with normal contractility. Calculated ejection fraction 52%. Job ID: [id number] DocumentID: [id number] Dictated Date: 11/04/2017 07:37:04 Insurance Processing Clerk Date: 11/04/2017 08:10:26 Dictated By: CHANTELLE KWAN MD
== END ==
LOC: CARD 11:20
PROVIDERS: ATTEND Internal Medicine Cardiovascular Disease
DX: R07.89 Other chest pain (principal); I10 Essential (primary) hypertension; M79.1 Myalgia; F43.21 Adjustment disorder with depressed mood
CPT/HCPCS: 78452; 93017

== ENCOUNTER 2017-11-29 00:25 | Observation (INO) | payer MEDICARE, OTHER ==
[~2017-11-29] VITALS: Ht 160 cm; Wt 75.5 kg
[~2017-11-29 00:25] MED LIST changes: -CATHETER FLUSH 10 ML SYR IV PRN; -REGADENOSON 0.4 MG/5 ML SYR (LEXISCAN) IV ONE
--- OUTSIDE RECORDS SUMMARY | 2017-11-29 00:33 | XMS REPORT | Continuity of Care Document ---
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 NOS 09/26/2016 RON TATE MD Ot V45.89 POSTSURGICAL STATES NEC 09/26/2016 LEA LOPES, RON R Ot S71.042D PUNCTURE WOUND WITH FOREIGN BODY, LEFT H 09/26/2016 LEA LOPES, RON R Ot W34.00XD ACCIDENTAL DISCHARGE FROM UNSP FIREARMS 09/26/2016 LEA LOPES, RON R Ot Y99.8 OTHER EXTERNAL CAUSE STATUS 09/26/2016 LEA LOPES, RON R Ot M79.651 PAIN IN RIGHT THIGH 09/26/2016 LEA LOPES, RON R Ot D72.829 ELEVATED WHITE BLOOD CELL COUNT, UNSPECI 09/26/2016 DEVONTE LOPES, MATEUSZ Waggoner C92.10 CHRONIC MYELOID LEUK, BCR/ABL-POSITIVE, 10/12/2016 MATEUSZ WHITNEY MD, Ot C92.10 CHRONIC MYELOID LEUK, BCR/ABL-POSITIVE, 10/12/2016 MATEUSZ WHITNEY MD, Ot D64.9 ANEMIA, UNSPECIFIED 10/12/2016 MATEUSZ WHITNEY MD, Ot F32.9 MAJOR DEPRESSIVE DISORDER, SINGLE EPISOD 10/12/2016 DEVONTE LOPES, MATEUSZ Waggoner F41.9 ANXIETY DISORDER, UNSPECIFIED 10/12/2016 MATEUSZ WHITNEY MD, Ot G62.9 POLYNEUROPATHY, UNSPECIFIED 10/12/2016 MATEUSZ WHITNEY MD, Ot K76.9 LIVER DISEASE, UNSPECIFIED 10/12/2016 MATEUSZ WHITNEY MD, Ot R42 DIZZINESS AND GIDDINESS 10/12/2016 MATEUSZ WHITNEY MD, Ot Z79.899 OTHER SHELTER (CURRENT) DRUG THERAPY 10/12/2016 MATEUSZ WHITNEY MD, Ot Z87.891 PERSONAL HISTORY OF NICOTINE DEPENDENCE 11/02/2016 MATEUSZ WHITNEY MD, Ot C92.10 CHRONIC MYELOID LEUK, BCR/ABL-POSITIVE, 11/02/2016 MATEUSZ WHITNEY MD, Ot D64.9 ANEMIA, UNSPECIFIED 11/02/2016 MATEUSZ WHITNEY MD, Ot F32.9 MAJOR DEPRESSIVE DISORDER, SINGLE EPISOD 11/02/2016 MATEUSZ WHITNEY MD, Ot F41.9 ANXIETY DISORDER, UNSPECIFIED 11/02/2016 MATEUSZ WHITNEY MD, Ot G62.9 POLYNEUROPATHY, UNSPECIFIED 11/02/2016 XUN MD, HART-CECILIO Ot K76.9 LIVER DISEASE, UNSPECIFIED 11/02/2016 MATEUSZ WHITNEY MD Ot R42 DIZZINESS AND GIDDINESS 11/02/2016 MATEUSZ WHITNEY MD Ot Z79.899 OTHER BRISKET PULLER (CURRENT) DRUG THERAPY 11/02/2016 MATEUSZ WHITNEY MD Ot Z87.891 PERSONAL HISTORY OF NICOTINE DEPENDENCE 11/03/2016 MATEUSZ WHITNEY MD Ot C92.10 CHRONIC MYELOID LEUK, BCR/ABL-POSITIVE, 11/03/2016 MATEUSZ WHITNEY MD Ot D64.9 ANEMIA, UNSPECIFIED 11/03/2016 DEVONTE LOPES, MATEUSZ Ot F32.9 MAJOR DEPRESSIVE DISORDER, SINGLE EPISOD 11/03/2016 MATEUSZ WHITNEY MD Ot F41.9 ANXIETY DISORDER, UNSPECIFIED 11/03/2016 DEVONTE LOPES, MATEUSZ Ot G62.9 POLYNEUROPATHY, UNSPECIFIED 11/03/2016 MATEUSZ WHITNEY MD Ot K76.9 LIVER DISEASE, UNSPECIFIED 11/03/2016 MATEUSZ WHITNEY MD Ot R42 DIZZINESS AND GIDDINESS 11/03/2016 MATEUSZ WHITNEY MD Ot Z79.899 OTHER SHELTER (CURRENT) DRUG THERAPY 11/03/2016 MATEUSZ WHITNEY MD Ot Z87.891 PERSONAL HISTORY OF NICOTINE DEPENDENCE 11/16/2016 MATEUSZ WHITNEY MD Ot C92.10 CHRONIC MYELOID LEUK, BCR/ABL-POSITIVE, 11/16/2016 MATEUSZ WHITNEY MD Ot D64.9 ANEMIA, UNSPECIFIED 11/16/2016 MATEUSZ WHITNEY MD Ot F32.9 MAJOR DEPRESSIVE DISORDER, SINGLE EPISOD 11/16/2016 DEVONTE LOPES, MATEUSZ Ot F41.9 ANXIETY DISORDER, UNSPECIFIED 11/16/2016 DEVONTE LOPES, MATEUSZ Ot G62.9 POLYNEUROPATHY, UNSPECIFIED 11/16/2016 MATEUSZ WHITNEY MD Ot K76.9 LIVER DISEASE, UNSPECIFIED 11/16/2016 MATEUSZ WHITNEY MD Ot R42 DIZZINESS AND GIDDINESS 11/16/2016 MATEUSZ WHITNEY MD Ot Z79.899 OTHER BRISKET PULLER (CURRENT) DRUG THERAPY 11/16/2016 MATEUSZ WHITNEY MD Ot Z87.891 PERSONAL HISTORY OF NICOTINE DEPENDENCE 12/04/2016 LEA LOPES, RON Fuentes Ot M50.322 OTHER CERVICAL DISC DEGENERATION AT C5-C 12/04/2016 LEA LOPES, RON Fuentes Ot M53.82 OTHER SPECIFIED DORSOPATHIES, CERVICAL R 12/11/2016 DEVONTE LOPES, MATEUSZ Waggoner C92.10 CHRONIC MYELOID LEUK, BCR/ABL-POSITIVE, 12/11/2016 MATEUSZ WHITNEY MD, Ot D64.9 ANEMIA, UNSPECIFIED 12/11/2016 DEVONTE LOPES, MATEUSZ Waggoner F32.9 MAJOR DEPRESSIVE DISORDER, SINGLE EPISOD 12/11/2016 DEVONTE LOPES, MATEUSZ Waggoner F41.9 ANXIETY DISORDER, UNSPECIFIED 12/11/2016 DVEONTE LOPES, MATEUSZ Waggoner G62.9 POLYNEUROPATHY, UNSPECIFIED 12/11/2016 DEVONTE LOPES, MATEUSZ Waggoner K76.9 LIVER DISEASE, UNSPECIFIED 12/11/2016 DEVONTE LOPES, MATEUSZ Ot R42 DIZZINESS AND GIDDINESS 12/11/2016 MATEUSZ WHITNEY MD Ot Z79.899 OTHER SHELTER (CURRENT) DRUG THERAPY 12/11/2016 MATEUSZ WHITNEY MD Ot Z87.891 PERSONAL HISTORY OF NICOTINE DEPENDENCE 12/19/2016 DEVONTE LOPES, MATEUSZ Waggoner C92.10 CHRONIC MYELOID LEUK, BCR/ABL-POSITIVE, 12/19/2016 MATEUSZ WHITNEY MD, Ot D64.9 ANEMIA, UNSPECIFIED 12/19/2016 DEVONTE LOPES, MATEUSZ Waggoner F32.9 MAJOR DEPRESSIVE DISORDER, SINGLE EPISOD 12/19/2016 DEVONTE LOPES, MATEUSZ Ot F41.9 ANXIETY DISORDER, UNSPECIFIED 12/19/2016 DEVONTE LOPES, MATEUSZ Waggoner G62.9 POLYNEUROPATHY, UNSPECIFIED 12/19/2016 DEVONTE LOPES, MATEUSZ Ot K76.9 LIVER DISEASE, UNSPECIFIED 12/19/2016 MATEUSZ WHITNEY MD Ot R42 DIZZINESS AND GIDDINESS 12/19/2016 MATEUSZ WHITNEY MD Ot Z79.899 OTHER SHELTER (CURRENT) DRUG THERAPY 12/19/2016 MATEUSZ WHITNEY MD Ot Z87.891 PERSONAL HISTORY OF NICOTINE DEPENDENCE 12/24/2016 MATEUSZ WHITNEY MD Ot C92.10 CHRONIC MYELOID LEUK, BCR/ABL-POSITIVE, 12/24/2016 MATEUSZ WHITNEY MD, Ot D64.9 ANEMIA, UNSPECIFIED 12/24/2016 MATEUSZ WHITNEY MD Ot F32.9 MAJOR DEPRESSIVE DISORDER, SINGLE EPISOD 12/24/2016 MATEUSZ WHITNEY MD, Ot F41.9 ANXIETY DISORDER, UNSPECIFIED 12/24/2016 MATEUSZ WHITNEY MD, Ot G62.9 POLYNEUROPATHY, UNSPECIFIED 12/24/2016 MATEUSZ WHITNEY MD Ot K76.9 LIVER DISEASE, UNSPECIFIED 12/24/2016 MATEUSZ WHITNEY MD Ot R42 DIZZINESS AND GIDDINESS 12/24/2016 MATEUSZ WHITNEY MD Ot Z79.899 OTHER SHELTER (CURRENT) DRUG THERAPY 12/24/2016 MATEUSZ WHITNEY MD Ot Z87.891 PERSONAL HISTORY OF NICOTINE DEPENDENCE 01/04/2017 ADORE LOPES, RIZWANA Huggins Ot V58.69 OTH MED,LT,CURRENT USE 01/04/2017 RIZWANA AVITIA MD Ot V58.83 ENCOUNTER FOR THERAPEUTIC DRUG MONITORIN 01/04/2017 RIZWANA AVITIA MD Ot V58.69 OTH MED,LT,CURRENT USE 01/04/2017 RIZWANA AVITIA MD Ot V58.83 ENCOUNTER FOR THERAPEUTIC DRUG MONITORIN 01/04/2017 RIZWANA AVITIA MD Ot V58.69 OTH MED,LT,CURRENT USE 01/04/2017 RIZWANA AVITIA MD Ot V58.83 ENCOUNTER FOR THERAPEUTIC DRUG MONITORIN 01/04/2017 RON TATE MD R Ot 787.02 NAUSEA ALONE 01/04/2017 RON TATE MD R Ot 560.9 INTESTINAL OBSTRUCT NOS 01/04/2017 LEA LOPES, RON R Ot V45.89 POSTSURGICAL STATES NEC 01/04/2017 LEA LOPES, RON R Ot S71.042D PUNCTURE WOUND WITH FOREIGN BODY, LEFT H 01/04/2017 RON TATE MD R Ot W34.00XD ACCIDENTAL DISCHARGE FROM UNSP FIREARMS 01/04/2017 RON TATE MD R Ot Y99.8 OTHER EXTERNAL CAUSE STATUS 01/04/2017 RON TATE MD R Ot M79.651 PAIN IN RIGHT THIGH 01/04/2017 RON TATE MD R Ot D72.829 ELEVATED WHITE BLOOD CELL COUNT, UNSPECI 01/04/2017 DEVONTE LOPES, MATEUSZ Waggoner C92.10 CHRONIC MYELOID LE[place], BCR/ABL-POSITIVE, 01/06/2017 MATEUSZ WHITNEY MD, Ot C92.10 CHRONIC MYELOID LE[place], BCR/ABL-POSITIVE, 01/06/2017 MATEUSZ WHITNEY MD, Ot D64.9 ANEMIA, UNSPECIFIED 01/06/2017 MATEUSZ WHITNEY MD, Ot F32.9 MAJOR DEPRESSIVE DISORDER, SINGLE EPISOD 01/06/2017 DEVONTE LOPES, MATEUSZ Waggoner F41.9 ANXIETY DISORDER, UNSPECIFIED 01/06/2017 MATEUSZ WHITNEY MD, Ot G62.9 POLYNEUROPATHY, UNSPECIFIED 01/06/2017 MATEUSZ WHITNEY MD, Ot K76.9 LIVER DISEASE, UNSPECIFIED 01/06/2017 MATEUSZ WHITNEY MD Ot R42 DIZZINESS AND GIDDINESS 01/06/2017 DEVONTE LOPES, MATEUSZ Ot Z79.899 OTHER BRISKET PULLER (CURRENT) DRUG THERAPY 01/06/2017 MATEUSZ WHITNEY MD Ot Z87.891 PERSONAL HISTORY OF NICOTINE DEPENDENCE 01/29/2017 RIZWANA AVITIA MD Ot V58.69 OTH MED,LT,CURRENT USE 01/29/2017 RIZWANA AVITIA MD Ot V58.83 ENCOUNTER FOR THERAPEUTIC DRUG MONITORIN 01/29/2017 RIZWANA AVITIA MD Ot V58.69 OTH MED,LT,CURRENT USE 01/29/2017 RIZWANA AVITIA MD Ot V58.83 ENCOUNTER FOR THERAPEUTIC DRUG MONITORIN 01/29/2017 RIZWANA AVITIA MD Ot V58.69 OTH MED,LT,CURRENT USE 01/29/2017 RIZWANA AVITIA MD Ot V58.83 ENCOUNTER FOR THERAPEUTIC DRUG MONITORIN 01/29/2017 RON TATE MD R Ot 787.02 NAUSEA ALONE 01/29/2017 RON TATE MD R Ot 560.9 INTESTINAL OBSTRUCT NOS 01/29/2017 RON TATE MD R Ot V45.89 POSTSURGICAL STATES NEC 01/29/2017 RON TATE MD R Ot S71.042D PUNCTURE WOUND WITH FOREIGN BODY, LEFT H 01/29/2017 RON TATE MD R Ot W34.00XD ACCIDENTAL DISCHARGE FROM UNSP FIREARMS 01/29/2017 LEA LOPES, RON R Ot Y99.8 OTHER EXTERNAL CAUSE STATUS 01/29/2017 LEA LOPES, RON Fuentes Ot M79.651 PAIN IN RIGHT THIGH 01/29/2017 LEA LOPES, RON Fuentes Ot D72.829 ELEVATED WHITE BLOOD CELL COUNT, UNSPECI 01/29/2017 DEVONTE LOPES, MATEUSZ Waggoner C92.10 CHRONIC MYELOID LEUK, BCR/ABL-POSITIVE, 02/12/2017 MATEUSZ WHITNEY MD, Ot C92.10 CHRONIC MYELOID LEUK, BCR/ABL-POSITIVE, 02/12/2017 MATEUSZ WHITNEY MD, Ot D64.9 ANEMIA, UNSPECIFIED 02/12/2017 MATEUSZ WHITNEY MD, Ot F32.9 MAJOR DEPRESSIVE DISORDER, SINGLE EPISOD 02/12/2017 DEVONTE LOPES, MATEUSZ Waggoner F41.9 ANXIETY DISORDER, UNSPECIFIED 02/12/2017 MATEUSZ WHITNEY MD, Ot G62.9 POLYNEUROPATHY, UNSPECIFIED 02/12/2017 MATEUSZ WHITNEY MD, Ot K76.9 LIVER DISEASE, UNSPECIFIED 02/12/2017 MATEUSZ WHITNEY MD Ot R42 DIZZINESS AND GIDDINESS 02/12/2017 MATEUSZ WHITNEY MD, Ot Z79.899 OTHER BRISKET PULLER (CURRENT) DRUG THERAPY 02/12/2017 MATEUSZ WHITNEY MD, Ot Z87.891 PERSONAL HISTORY OF NICOTINE DEPENDENCE 04/05/2017 MATEUSZ WHITNEY MD, Ot C92.10 CHRONIC MYELOID LEUK, BCR/ABL-POSITIVE, 04/05/2017 MATEUSZ WHITNEY MD, Ot D64.9 ANEMIA, UNSPECIFIED 04/05/2017 DEVONTE LOPES, MATEUSZ Waggoner F32.9 MAJOR DEPRESSIVE DISORDER, SINGLE EPISOD 04/05/2017 DEVONTE LOPES, MATEUSZ Ot F41.9 ANXIETY DISORDER, UNSPECIFIED 04/05/2017 MATEUSZ WHITNEY MD, Ot G62.9 POLYNEUROPATHY, UNSPECIFIED 04/05/2017 DEVONTE LOPES, MATEUSZ Ot K76.9 LIVER DISEASE, UNSPECIFIED 04/05/2017 MATEUSZ WHITNEY MD Ot R42 DIZZINESS AND GIDDINESS 04/05/2017 MATEUSZ WHITNEY MD Ot Z79.899 OTHER SHELTER (CURRENT) DRUG THERAPY 04/05/2017 MATEUSZ WHITNEY MD, Ot Z87.891 PERSONAL HISTORY OF NICOTINE DEPENDENCE 04/07/2017 DEVONTE LOPES, MATEUSZ Waggoner C92.10 CHRONIC MYELOID LEUK, BCR/ABL-POSITIVE, 04/07/2017 MATEUSZ WHITNEY MD, Ot D64.9 ANEMIA, UNSPECIFIED 04/07/2017 MATEUSZ WHITNEY MD, Ot F32.9 MAJOR DEPRESSIVE DISORDER, SINGLE EPISOD 04/07/2017 DEVONTE LOPES, MATEUSZ Ot F41.9 ANXIETY DISORDER, UNSPECIFIED 04/07/2017 MATEUSZ WHITNEY MD, Ot G62.9 POLYNEUROPATHY, UNSPECIFIED 04/07/2017 MATEUSZ WHITNEY MD Ot K76.9 LIVER DISEASE, UNSPECIFIED 04/07/2017 MATEUSZ WHITNEY MD Ot R42 DIZZINESS AND GIDDINESS 04/07/2017 MATEUSZ WHITNEY MD Ot Z79.899 OTHER BRISKET PULLER (CURRENT) DRUG THERAPY 04/07/2017 MATEUSZ WHITNEY MD, Ot Z87.891 PERSONAL HISTORY OF NICOTINE DEPENDENCE 04/27/2017 LEA LOPES, RON R Ot 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 04/27/2017 LEA LOPES, RON R Ot G47.00 INSOMNIA, UNSPECIFIED 04/27/2017 LEA LOPES, RON R Ot R29.818 OTHER SYMPTOMS AND SIGNS INVOLVING THE N 05/19/2017 MATEUSZ WHITNEY MD, Ot C92.10 CHRONIC MYELOID LEUK, BCR/ABL-POSITIVE, 05/19/2017 MATEUSZ WHITNEY MD Ot D64.9 ANEMIA, UNSPECIFIED 05/19/2017 MATEUSZ WHITNEY MD Ot F32.9 MAJOR DEPRESSIVE DISORDER, SINGLE EPISOD 05/19/2017 DEVONTE LOPES, MATEUSZ Ot F41.9 ANXIETY DISORDER, UNSPECIFIED 05/19/2017 MATEUSZ WHITNEY MD Ot G62.9 POLYNEUROPATHY, UNSPECIFIED 05/19/2017 MATEUSZ WHITNEY MD Ot K76.9 LIVER DISEASE, UNSPECIFIED 05/19/2017 MATEUSZ WHITNEY MD Ot R42 DIZZINESS AND GIDDINESS 05/19/2017 MATEUSZ WHITNEY MD Ot Z79.899 OTHER SHELTER (CURRENT) DRUG THERAPY 05/19/2017 MATEUSZ WHITNEY MD Ot Z87.891 PERSONAL HISTORY OF NICOTINE DEPENDENCE 07/05/2017 DEVONTE LOPES, MATEUSZ Ot C92.10 CHRONIC MYELOID LEUK, BCR/ABL-POSITIVE, 07/05/2017 DEVONTE LOPES, MATEUSZ Ot D64.9 ANEMIA, UNSPECIFIED 07/05/2017 DEVONTE LOPES, MATEUSZ Ot F32.9 MAJOR DEPRESSIVE DISORDER, SINGLE EPISOD 07/05/2017 DEVONTE LOPES, MATEUSZ Ot F41.9 ANXIETY DISORDER, UNSPECIFIED 07/05/2017 DEVONTE LOPES, MATEUSZ Ot G62.9 POLYNEUROPATHY, UNSPECIFIED 07/05/2017 DEVONTE LOPES, MATEUSZ Ot K76.9 LIVER DISEASE, UNSPECIFIED 07/05/2017 DEVONTE LOPES, MATEUSZ Ot R42 DIZZINESS AND GIDDINESS 07/05/2017 MATEUSZ WHITNEY MD Ot Z79.899 OTHER BRISKET PULLER (CURRENT) DRUG THERAPY 07/05/2017 MATEUSZ WHITNEY MD Ot Z87.891 PERSONAL HISTORY OF NICOTINE DEPENDENCE 07/06/2017 DEVONTE LOPES, MATEUSZ Ot C92.10 CHRONIC MYELOID LEUK, BCR/ABL-POSITIVE, 07/06/2017 DEVONTE LOPES, MATEUSZ Ot D64.9 ANEMIA, UNSPECIFIED 07/06/2017 DEVONTE LOPES, MATEUSZ Ot F32.9 MAJOR DEPRESSIVE DISORDER, SINGLE EPISOD 07/06/2017 DEVONTE LOPES, MATEUSZ Ot F41.9 ANXIETY DISORDER, UNSPECIFIED 07/06/2017 DEVONTE LOPES, MATEUSZ Ot G62.9 POLYNEUROPATHY, UNSPECIFIED 07/06/2017 DEVONTE LOPES, MATEUSZ Ot K76.9 LIVER DISEASE, UNSPECIFIED 07/06/2017 MATEUSZ WHITNEY MD Ot R42 DIZZINESS AND GIDDINESS 07/06/2017 MATEUSZ WHITNEY MD Ot Z79.899 OTHER SHELTER (CURRENT) DRUG THERAPY 07/06/2017 MATEUSZ WHITNEY MD Ot Z87.891 PERSONAL HISTORY OF NICOTINE DEPENDENCE 07/27/2017 ADORE LOPES, RIZWANA Huggins Ot V58.69 OTH MED,LT,CURRENT USE 07/27/2017 RIZWANA AVITIA MD Ot V58.83 ENCOUNTER FOR THERAPEUTIC DRUG MONITORIN 07/27/2017 RIZWANA AVITIA MD Ot V58.69 OTH MED,LT,CURRENT USE 07/27/2017 RIZWANA AVITIA MD Ot V58.83 ENCOUNTER FOR THERAPEUTIC DRUG MONITORIN 07/27/2017 RIZWANA AVITIA MD Ot V58.69 OTH MED,LT,CURRENT USE 07/27/2017 RIZWANA AVITIA MD Ot V58.83 ENCOUNTER FOR THERAPEUTIC DRUG MONITORIN 07/27/2017 RON TATE MD R Ot 787.02 NAUSEA ALONE 07/27/2017 RON TATE MD R Ot 560.9 INTESTINAL OBSTRUCT NOS 07/27/2017 RON TATE MD R Ot V45.89 POSTSURGICAL STATES NEC 07/27/2017 RON TATE MD R Ot S71.042D PUNCTURE WOUND WITH FOREIGN BODY, LEFT H 07/27/2017 RON ATTE MD Ot W34.00XD ACCIDENTAL DISCHARGE FROM UNSP FIREARMS 07/27/2017 RON TATE MD Ot Y99.8 OTHER EXTERNAL CAUSE STATUS 07/27/2017 RON TATE MD R Ot M79.651 PAIN IN RIGHT THIGH 07/27/2017 RON TATE MD R Ot D72.829 ELEVATED WHITE BLOOD CELL COUNT, UNSPECI 07/27/2017 MATEUSZ WHITNEY MD, Ot C92.10 CHRONIC MYELOID LEUK, BCR/ABL-POSITIVE, 07/27/2017 MATEUSZ WHITNEY MD, Ot C92.10 CHRONIC MYELOID LEUK, BCR/ABL-POSITIVE, 07/27/2017 MATEUSZ WHITNEY MD, Ot D64.9 ANEMIA, UNSPECIFIED 07/27/2017 MATEUSZ WHITNEY MD Ot F32.9 MAJOR DEPRESSIVE DISORDER, SINGLE EPISOD 07/27/2017 MATEUSZ WHITNEY MD, Ot F41.9 ANXIETY DISORDER, UNSPECIFIED 07/27/2017 MATEUSZ WHITNEY MD, Ot G62.9 POLYNEUROPATHY, UNSPECIFIED 07/27/2017 MATEUSZ WIHTNEY MD, Ot K76.9 LIVER DISEASE, UNSPECIFIED 07/27/2017 MATEUSZ WHITNEY MD, Ot R42 DIZZINESS AND GIDDINESS 07/27/2017 MATEUSZ WHITNEY MD, Ot Z79.899 OTHER SHELTER (CURRENT) DRUG THERAPY 07/27/2017 MATEUSZ WHITNEY MD, Ot Z87.891 PERSONAL HISTORY OF NICOTINE DEPENDENCE 07/28/2017 MATEUSZ WHITNEY MD, Ot C92.10 CHRONIC MYELOID LEUK, BCR/ABL-POSITIVE, 07/28/2017 DEVONTE LOPES, MATEUSZ Waggoner D64.9 ANEMIA, UNSPECIFIED 07/28/2017 DEVONTE LOPES, MATEUSZ Waggoner F32.9 MAJOR DEPRESSIVE DISORDER, SINGLE EPISOD 07/28/2017 DEVONTE LOPES, MATEUSZ Ot F41.9 ANXIETY DISORDER, UNSPECIFIED 07/28/2017 DEVONTE LOPES, MATEUSZ Waggoner G62.9 POLYNEUROPATHY, UNSPECIFIED 07/28/2017 DEVONTE LOPES, MATEUSZ Ot K76.9 LIVER DISEASE, UNSPECIFIED 07/28/2017 DEVONTE LOPES, MATEUSZ Ot R42 DIZZINESS AND GIDDINESS 07/28/2017 DEVONTE LOPES, MATEUSZ Ot Z79.899 OTHER SHELTER (CURRENT) DRUG THERAPY 07/28/2017 DEVONTE LOPES, MATEUSZ Ot Z87.891 PERSONAL HISTORY OF NICOTINE DEPENDENCE 08/13/2017 MATEUSZ WHITNEY MD, Ot C92.10 CHRONIC MYELOID LEUK, BCR/ABL-POSITIVE, 08/13/2017 MATEUSZ WHITNEY MD, Ot D64.9 ANEMIA, UNSPECIFIED 08/13/2017 DEVONTE LOPES, MATEUSZ Ot F32.9 MAJOR DEPRESSIVE DISORDER, SINGLE EPISOD 08/13/2017 DEVONTE LOPES, MATEUSZ Ot F41.9 ANXIETY DISORDER, UNSPECIFIED 08/13/2017 DEVONTE LOPES, MATEUSZ Waggoner G62.9 POLYNEUROPATHY, UNSPECIFIED 08/13/2017 DEVONTE LOPES, MATEUSZ Ot K76.9 LIVER DISEASE, UNSPECIFIED 08/13/2017 DEVONTE LOPES, MATEUSZ Ot R42 DIZZINESS AND GIDDINESS 08/13/2017 DEVONTE LOPES, MATEUSZ Ot Z79.899 OTHER BRISKET PULLER (CURRENT) DRUG THERAPY 08/13/2017 DEVONTE LOPES, MATEUSZ Ot Z87.891 PERSONAL HISTORY OF NICOTINE DEPENDENCE 09/07/2017 DEVONTE LOPES, MATEUSZ Waggoner C92.10 CHRONIC MYELOID LEUK, BCR/ABL-POSITIVE, 09/07/2017 DEVONTE LOPES, MATEUSZ Waggoner D64.9 ANEMIA, UNSPECIFIED 09/07/2017 DEVONTE LOPES, MATEUSZ Ot F32.9 MAJOR DEPRESSIVE DISORDER, SINGLE EPISOD 09/07/2017 DEVONTE LOPES, MATEUSZ Ot F41.9 ANXIETY DISORDER, UNSPECIFIED 09/07/2017 MATEUSZ WHITNEY MD, Ot G62.9 POLYNEUROPATHY, UNSPECIFIED 09/07/2017 MATEUSZ WHITNEY MD Ot K76.9 LIVER DISEASE, UNSPECIFIED 09/07/2017 MATEUSZ WHITNEY MD Ot R42 DIZZINESS AND GIDDINESS 09/07/2017 MATEUSZ WHITNEY MD Ot Z79.899 OTHER SHELTER (CURRENT) DRUG THERAPY 09/07/2017 MATEUSZ WHITNEY MD, Ot Z87.891 PERSONAL HISTORY OF NICOTINE DEPENDENCE 09/09/2017 MARISEL NASH BUSINESS AGENT-C Ot R11.2 NAUSEA WITH VOMITING, UNSPECIFIED 09/11/2017 EDMUNDO OLVERA MD Ot F17.210 NICOTINE DEPENDENCE, CIGARETTES, UNCOMPL 09/11/2017 EDMUNDO OLVERA MD, Ot F41.9 ANXIETY DISORDER, UNSPECIFIED 09/11/2017 EDMUNDO OLVERA MD Ot H57.12 OCULAR PAIN, LEFT EYE 09/11/2017 EDMUNDO OLVERA MD, Ot H57.8 OTHER SPECIFIED DISORDERS OF EYE AND ADN 09/11/2017 EDMUNDO OLVERA MD, Ot I10 ESSENTIAL (PRIMARY) HYPERTENSION 09/11/2017 EDMUNDO OLVERA MD, Ot I25.10 ATHSCL HEART DISEASE OF [place] CORONARY 09/11/2017 EDMUNDO OLVERA MD, Ot K21.9 GASTRO-ESOPHAGEAL REFLUX DISEASE WITHOUT 09/11/2017 EDMUNDO OLVERA MD Ot 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 09/11/2017 EDMUNDO OLVERA MD Ot X58.XXXA EXPOSURE TO OTHER SPECIFIED FACTORS, INI 09/11/2017 EDMUNDO OLVERA MD, Ot Z80.0 FAMILY HISTORY OF MALIGNANT NEOPLASM OF 09/11/2017 EDMUNDO OLVERA MD, Ot Z85.6 PERSONAL HISTORY OF LEUKEMIA 09/11/2017 EDMUNDO OLVERA MD, Ot Z88.0 ALLERGY STATUS TO PENICILLIN 09/11/2017 EDMUNDO OLVERA MD, Ot Z88.8 ALLERGY STATUS TO OTH DRUG/MEDS/BIOL SUB 09/11/2017 EDMUNDO OLVERA MD, Ot Z93.3 COLOSTOMY STATUS 09/17/2017 EDMUNDO OLVERA MD, Ot F17.210 NICOTINE DEPENDENCE, CIGARETTES, UNCOMPL 09/17/2017 EDMUNDO OLVERA MD, Ot F41.9 ANXIETY DISORDER, UNSPECIFIED 09/17/2017 EDMUNDO OLVERA MD, Ot H57.12 OCULAR PAIN, LEFT EYE 09/17/2017 EDMUNDO OLVERA MD, Ot H57.8 OTHER SPECIFIED DISORDERS OF EYE AND ADN 09/17/2017 EDMUNDO OLVERA MD, Ot I10 ESSENTIAL (PRIMARY) HYPERTENSION 09/17/2017 EDMUNDO OLVERA MD, Ot I25.10 ATHSCL HEART DISEASE OF [place] CORONARY 09/17/2017 EDMUNDO OLVERA MD, Ot K21.9 GASTRO-ESOPHAGEAL REFLUX DISEASE WITHOUT 09/17/2017 EDMUNDO OLVERA MD, Ot 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 09/17/2017 EDMUNDO OLVERA MD, Ot X58.XXXA EXPOSURE TO OTHER SPECIFIED FACTORS, INI 09/17/2017 EDMUNDO OLVERA MD, Ot Z80.0 FAMILY HISTORY OF MALIGNANT NEOPLASM OF 09/17/2017 EDMUNDO OLVERA MD, Ot Z85.6 PERSONAL HISTORY OF LEUKEMIA 09/17/2017 EDMUNDO OLVERA MD, Ot Z88.0 ALLERGY STATUS TO PENICILLIN 09/17/2017 EDMUNDO OLVERA MD, Ot Z88.8 ALLERGY STATUS TO OTH DRUG/MEDS/BIOL SUB 09/17/2017 EDMUNDO OLVERA MD, Ot Z93.3 COLOSTOMY STATUS 09/28/2017 MARISEL NASH BUSINESS AGENT-Johnson Ot R11.2 NAUSEA WITH VOMITING, UNSPECIFIED 10/04/2017 MATEUSZ WHITNEY MD Ot C92.10 CHRONIC MYELOID [place], BCR/ABL-POSITIVE, 10/04/2017 MATEUSZ WHITNEY MD Ot D64.9 ANEMIA, UNSPECIFIED 10/04/2017 MATEUSZ WHITNEY MD Ot F32.9 MAJOR DEPRESSIVE DISORDER, SINGLE EPISOD 10/04/2017 MATEUSZ WHITNEY MD, Ot F41.9 ANXIETY DISORDER, UNSPECIFIED 10/04/2017 MATEUSZ WHITNEY MD Ot G62.9 POLYNEUROPATHY, UNSPECIFIED 10/04/2017 DEVONTE LOPES, MATEUSZ Ot K76.9 LIVER DISEASE, UNSPECIFIED 10/04/2017 MATEUSZ WHITNEY MD Ot R42 DIZZINESS AND GIDDINESS 10/04/2017 MATEUSZ WHITNEY MD Ot Z79.899 OTHER BRISKET PULLER (CURRENT) DRUG THERAPY 10/04/2017 DEVONTE LOPES, MATEUSZ Ot Z87.891 PERSONAL HISTORY OF NICOTINE DEPENDENCE 10/05/2017 DEVONTE LOPES, MATEUSZ Ot C92.10 CHRONIC MYELOID LEUK, BCR/ABL-POSITIVE, 10/05/2017 MATEUSZ WHITNEY MD Ot D64.9 ANEMIA, UNSPECIFIED 10/05/2017 MATEUSZ WHITNEY MD Ot F32.9 MAJOR DEPRESSIVE DISORDER, SINGLE EPISOD 10/05/2017 MATEUSZ WHITNEY MD Ot F41.9 ANXIETY DISORDER, UNSPECIFIED 10/05/2017 MATEUSZ WHITNEY MD, Ot G62.9 POLYNEUROPATHY, UNSPECIFIED 10/05/2017 MATEUSZ WHITNEY MD Ot K76.9 LIVER DISEASE, UNSPECIFIED 10/05/2017 MATEUSZ WHITNEY MD Ot R42 DIZZINESS AND GIDDINESS 10/05/2017 MATEUSZ WHITNEY MD Ot Z79.899 OTHER SHELTER (CURRENT) DRUG THERAPY 10/05/2017 MATEUSZ WHITNEY MD Ot Z87.891 PERSONAL HISTORY OF NICOTINE DEPENDENCE 11/12/2017 CHANTELLE KWAN MD Ot C92.11 CHRONIC MYELOID LEUKEMIA, BCR/ABL-POSITI 11/12/2017 CHANTELLE KWAN MD Ot E78.5 HYPERLIPIDEMIA, UNSPECIFIED 11/12/2017 CHANTELLE KWAN MD Ot F43.20 ADJUSTMENT DISORDER, UNSPECIFIED 11/12/2017 CHANTELLE KWAN MD Ot G62.9 POLYNEUROPATHY, UNSPECIFIED 11/12/2017 CHANTELLE KWAN MD Ot G89.4 CHRONIC PAIN SYNDROME 11/12/2017 CHANTELLE KWAN MD Ot I10 ESSENTIAL (PRIMARY) HYPERTENSION 11/12/2017 CHANTELLE KWAN MD Ot I25.10 ATHSCL HEART DISEASE OF [place] CORONARY 11/12/2017 CHANTELLE WKAN MD Ot M79.7 FIBROMYALGIA 11/12/2017 CHANTELLE KWAN MD, Ot R07.9 CHEST PAIN, UNSPECIFIED 11/12/2017 CHANTELLE KWAN MD, Ot Z79.899 OTHER SHELTER (CURRENT) DRUG THERAPY 11/12/2017 CHANTELLE KWAN MD, Ot Z87.891 PERSONAL HISTORY OF NICOTINE DEPENDENCE Procedures There is no data. Results Test Result Range Complete blood count (CBC) with automated white blood cell (WBC) differential - 09/22/16 12:30 Blood leukocytes automated count (number/volume) 6.0 10*3/uL 4.3-11.0 Blood erythrocytes automated count (number/volume) 4.37 10*6/uL 4.35-5.85 Venous blood hemoglobin measurement (mass/volume) 12.9 g/dL 13.3-17.7 Blood hematocrit (volume fraction) 39 % 40-54 Automated erythrocyte mean corpuscular volume 88 [foz_us] 80-99 Automated erythrocyte mean corpuscular hemoglobin (mass per erythrocyte) 30 pg 25-34 Automated erythrocyte mean corpuscular hemoglobin concentration measurement ( mass/volume) 33 g/dL 32-36 Automated erythrocyte distribution width ratio 15.1 % 10.0-14.5 Automated blood platelet count (count/volume) 262 10*3/uL 130-400 Automated blood platelet mean volume measurement 10.7 [foz_us] 7.4-10.4 Automated blood neutrophils/100 leukocytes 69 % 42-75 Automated blood lymphocytes/100 leukocytes 22 % 12-44 Blood monocytes/100 leukocytes 5 % 0-12 Automated blood eosinophils/100 leukocytes 4 % 0-10 Automated blood basophils/100 leukocytes 0 % 0-10 Blood neutrophils automated count (number/volume) 4.2 10*3 1.8-7.8 Blood lymphocytes automated count (number/volume) 1.3 10*3 1.0-4.0 Blood monocytes automated count (number/volume) 0.3 10*3 0.0-1.0 Automated eosinophil count 0.3 10*3/uL 0.0-0.3 Automated blood basophil count (count/volume) 0.0 10*3/uL 0.0-0.1 Complete urinalysis with reflex to culture - 09/22/16 12:30 Urine color determination YELLOW NRG Urine clarity determination CLEAR NRG Urine pH measurement by test strip 8 5-9 Specific gravity of urine by test strip 1.010 1.016- 1.022 Urine protein assay by test strip, semi-quantitative NEGATIVE NEGATIVE Urine glucose detection by automated test strip NEGATIVE NEGATIVE Erythrocytes detection in urine sediment by light microscopy NEGATIVE NEGATIVE Urine ketones detection by automated test strip NEGATIVE NEGATIVE Urine nitrite detection by test strip NEGATIVE NEGATIVE Urine total bilirubin detection by test strip NEGATIVE NEGATIVE Urine urobilinogen measurement by automated test strip (mass/volume) NORMAL NORMAL Urine leukocyte esterase detection by dipstick NEGATIVE NEGATIVE Automated urine sediment erythrocyte count by microscopy (number/high power field) NONE NRG Automated urine sediment leukocyte count by microscopy (number/high power field ) NONE NRG Bacteria detection in urine sediment by light microscopy NEGATIVE NRG Squamous epithelial cells detection in urine sediment by light microscopy NONE NRG Crystals detection in urine sediment by light microscopy NONE NRG Casts detection in urine sediment by light microscopy NONE NRG Mucus detection in urine sediment by light microscopy NEGATIVE NRG Complete urinalysis with reflex to culture NO NRG Comprehensive metabolic panel - 09/22/16 12:30 Serum or plasma sodium measurement (moles/volume) 139 mmol/L 135-145 Serum or plasma potassium measurement (moles/volume) 4.1 mmol/L 3.6-5.0 Serum or plasma chloride measurement (moles/volume) 105 mmol/L 98-107 Carbon dioxide 27 mmol/L 21-32 Serum or plasma anion gap determination (moles/volume) 7 mmol/L 5-14 Serum or plasma urea nitrogen measurement (mass/volume) 9 mg/dL 7-18 Serum or plasma creatinine measurement (mass/volume) 0.83 mg/dL 0.60-1.30 Serum or plasma urea nitrogen/creatinine mass ratio 11 NRG Serum or plasma creatinine measurement with calculation of estimated glomerular filtration rate > NRG Serum or plasma glucose measurement (mass/volume) 104 mg/dL 70-105 Serum or plasma calcium measurement (mass/volume) 9.3 mg/dL 8.5-10.1 Serum or plasma total bilirubin measurement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
[2017-11-29] MEDS ORDERED: NS IV 1000 ML 1,000 ML ONE (00:36)
[2017-11-29] MEDS ORDERED: morphine INJ 10 MG/ML 1ML (SYR OR VIAL) ONE (00:36)
[2017-11-29] MEDS ORDERED: HYDROmorphone 2 MG/ML VIAL (DILAUDID) ONE (00:57)
[2017-11-29 01:22] LABS: BASOPHILS # (AUTO) 0.1 10^3/uL (0.0-0.1); BASOPHILS % (AUTO) 1 % (0-10); EOSINOPHILS # (AUTO) 0.8 10^3/uL (0.0-0.3); EOSINOPHILS % (AUTO) 7 % (0-10); HEMATOCRIT 41 % (40-54); HEMOGLOBIN 14.4 G/DL (13.3-17.7); LYMPHOCYTES # (AUTO) 3.3 X 10^3 (1.0-4.0); LYMPHOCYTES % (AUTO) 31 % (12-44); MEAN CORPUSCULAR HEMOGLOBIN 31 PG (25-34); MEAN CORPUSCULAR HGB CONC 36 G/DL (32-36); MEAN CORPUSCULAR VOLUME 88 FL (80-99); MEAN PLATELET VOLUME 11.8 FL (7.4-10.4); MONOCYTES # (AUTO) 0.7 X 10^3 (0.0-1.0); MONOCYTES % (AUTO) 6 % (0-12); NEUTROPHILS % (AUTO) 56 % (42-75); PLATELET COUNT 251 10^3/uL (130-400); RED CELL DISTRIBUTION WIDTH 14.8 % (10.0-14.5); WHITE BLOOD COUNT 10.8 10^3/uL (4.3-11.0)
[2017-11-29 01:36] LABS: ALANINE AMINOTRANSFERASE 20 U/L (0-55); ALBUMIN 4.6 GM/DL (3.2-4.5); ALKALINE PHOSPHATASE 75 U/L (40-136); BILIRUBIN,TOTAL 0.5 MG/DL (0.1-1.0); BUN/CREATININE RATIO 11; CALCIUM 9.4 MG/DL (8.5-10.1); CARBON DIOXIDE 26 MMOL/L (21-32); CHLORIDE 106 MMOL/L (98-107); CREATININE SERUM 1.12 MG/DL (0.60-1.30); GFR ESTIMATED > 60; GLUCOSE 111 MG/DL (70-105); LIPASE 26 U/L (8-78); POTASSIUM 3.6 MMOL/L (3.6-5.0); SODIUM 143 MMOL/L (135-145)
[2017-11-29 02:52] LABS: BILIRUBIN,URINE NEGATIVE (NEGATIVE); CLARITY,URINE CLEAR; COLOR,URINE AMBER; GLUCOSE, URINE (UA) NEGATIVE (NEGATIVE); KETONES,URINE NEGATIVE (NEGATIVE); LEUKOCYTE ESTERASE ,URINE 1+ (NEGATIVE); NITRITE,URINE NEGATIVE (NEGATIVE); PH,URINE 6 (5-9); PROTEIN,URINE NEGATIVE (NEGATIVE); UROBILINOGEN,URINE 4 MG/DL (NORMAL)
[2017-11-29 02:59] LABS: BACTERIA,URINE NEGATIVE /HPF; SQUAMOUS EPITHELIAL CELL,UR 0-2 /HPF
[2017-11-29 03:06] LABS: AMPHETAMINE SCREEN, URINE NEGATIVE (NEGATIVE); BARBITURATE SCREEN URINE NEGATIVE (NEGATIVE); BENZODIAZEPINES SCREEN URINE POSITIVE (NEGATIVE); CANNABINOID SCREEN, URINE NEGATIVE (NEGATIVE); COCAINE SCREEN URINE NEGATIVE (NEGATIVE); METHADONE STAT NEGATIVE (NEGATIVE); METHAMPHETAMINE SCREEN URINE S NEGATIVE (NEGATIVE); OPIATE SCREEN URINE POSITIVE (NEGATIVE); OXYCODONE STAT NEGATIVE (NEGATIVE); PROPOXYPHENE STAT NEGATIVE (NEGATIVE); TRICYCLIC ANTIDEPRESSANTS SCRE NEGATIVE (NEGATIVE)
[2017-11-29] MEDS ORDERED: HYDROmorphone 2 MG/ML VIAL (DILAUDID) IV STA (03:11)
[2017-11-29] MEDS ORDERED: ONDANSETRON 4 MG/2 ML (SDV) Z0FRAN IVP ONE (03:15)
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
[2017-11-29 05:40] VITALS: BP 104/60
[2017-11-29] MEDS ORDERED: PANTOPRAZOLE 40 MG (PROTONIX) VIAL IV SCH (06:53)
[2017-11-29] MEDS ORDERED: PANTOPRAZOLE 40 MG (PROTONIX) VIAL IV NR (06:55)
[2017-11-29] MEDS ORDERED: ONDANSETRON 4 MG/2 ML (SDV) Z0FRAN IV PRN (07:00)
[2017-11-29] MEDS ORDERED: CATHETER FLUSH 10 ML SYR IV PRN (07:00)
[2017-11-29] MEDS ORDERED: HYDROmorphone 2 MG/ML VIAL (DILAUDID) IV PRN (07:00)
[2017-11-29 07:50] VITALS: BP 117/64
[2017-11-29 08:00] VITALS: BP 106/60
[2017-11-29] MEDS: D5 1/2 NS W/KCL 20 MEQ/L 1,000 ML IV SCH ×2 (08:10→16:46)
--- NOTE | 2017-11-29 08:11 | Diagnostic Imaging Report ---
PROCEDURE: CT abdomen and pelvis with contrast. TECHNIQUE: Multiple contiguous axial images were obtained through the abdomen and pelvis after administration of intravenous contrast. INDICATION: Abdominal pain, multiple bowel surgeries. Exam compared 09/22/2016 FINDINGS: There is distention of the stomach with fluid and air as well as fluid filled distention of the residual small bowel, small bowel showing abnormal mucosal hyperemia and hyperenhancement of its webb. Some edema and fluid tracking along the mesentery into the dependent pelvis. No loculated collection or sy abscess. Colon is unremarkable. No pneumatosis or free gas. The urinary tracts unobstructed. Liver, spleen, adrenals and pancreas unremarkable. There is no bile duct dilatation. The gallbladder is contracted. IMPRESSION: Fluid-filled dilatation of the small bowel throughout its course with abnormal mucosal hyperemia and hyperenhancement with abdominal pelvic free fluid as well as fluid along the edematous mesentery. Findings could reflect distal small bowel obstruction and/or generalized enteritis/peritonitis. No loculated collection or abscess. No free air or pneumatosis. Chronic deformities to the left hemipelvis stable. Dictated by: Dictated on workstation # [id number]
[2017-11-29] MEDS ORDERED: IMAT400T7 PO (09:47)
[2017-11-29] MEDS ORDERED: OMEP20CA12 PO (09:47)
[2017-11-29] MEDS ORDERED: ACET-168 PO (09:47)
[2017-11-29] MEDS ORDERED: ALPR2TAB6 PO (09:47)
[2017-11-29] MEDS ORDERED: MORP15TA PO (09:47)
[2017-11-29] MEDS ORDERED: ZOLP10TA5 PO (09:47)
[2017-11-29] MEDS ORDERED: ONDA4TAB10 PO (09:47)
[2017-11-29 12:00] VITALS: BP 103/60
[2017-11-29 16:10] VITALS: BP 102/60
[2017-11-29] MEDS ORDERED: morphine INJ 4 MG/ML 1 ML (VIAL/SYRINGE) IVP PRN (16:15)
[2017-11-29] MEDS ORDERED: morphine INJ 10 MG/ML 1ML (SYR OR VIAL) IV PRN (16:30)
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
[2017-11-29] MEDS ORDERED: MAGNESIUM CITRATE 300 ML BTL PO NR (17:15)
[2017-11-29] MEDS ORDERED: ZOLPIDEM 5 MG (AMBIEN) TAB PO PRN (17:15)
[2017-11-29] MEDS ORDERED: NON-FORMULARY MEDICATION 1 EA EA (Zolpidem Tartrate 10 MG) PO PRN (17:15)
[2017-11-29] MEDS ORDERED: ALPRAZolam 1 MG (XANAX) TAB PO PRN (17:15)
[2017-11-29] MEDS ORDERED: NON-FORMULARY MEDICATION 1 EA EA (Alprazolam 2 MG) PO PRN (17:15)
[2017-11-29] MEDS ORDERED: PATIENT MAY USE OWN MEDS, ALL MC SCH (18:00)
[2017-11-29 20:05] VITALS: BP 102/68
[2017-11-29] MEDS ORDERED: IMATINIB 400 MG TABLET PO SCH (21:00)
[2017-11-30] VITALS: BP 108/58
[2017-11-30] MEDS: D5 1/2 NS W/KCL 20 MEQ/L 1,000 ML IV SCH ×3 (03:40→15:22)
[2017-11-30 04:02] VITALS: BP 107/63
[2017-11-30 08:00] VITALS: BP 118/59
[2017-11-30] MEDS ORDERED: PANTOPRAZOLE 40 MG (PROTONIX) VIAL IV SCH (09:00)
[2017-11-30] MEDS ORDERED: NON-FORMULARY MEDICATION 1 EA EA (Enalapril Maleate 20 MG) PO SCH (09:00)
[2017-11-30] MEDS ORDERED: ENALAPRIL 10 MG (VASOTEC) TAB PO SCH (09:00)
--- NOTE | 2017-11-30 10:21 | Progress Note-Standard ---
Standard Progress Note Progress Notes/Assess & Plan Date Seen by Provider: Nov 30, 2017 Time Seen by Provider: 08:15 Progress/Assessment & Plan minimal output from the nasogastric tube. Passing flatus and has had little stools. No abdominal distention. NG tube clamped and could be removed later today. possible discharge this evening. Encouraged to follow-up with his surgeon in [place]. Final Diagnosis resolved partial small bowel obstruction CHERYL COX MD Nov 30, 2017 10:21
[2017-11-30 12:00] VITALS: BP 109/65
[2017-11-30 16:29] VITALS: BP 120/90
[2017-11-30 17:25] VITALS: BP 120/90
== END 2017-11-30 16:40 | disposition home or self-care (01) ==
LOC: EDUNIT# 00:25 → ER 00:26 → UNDOADMOB 04:52 → 4TH 04:52 → UNDODISOB 11-30 17:25
PROVIDERS: ADMIT Surgery; ATTEND Surgery
DX: K56.600 Partial intestinal obstruction, unspecified as to cause (principal); I25.10 Atherosclerotic heart disease of native coronary artery without angina pectoris; I10 Essential (primary) hypertension; G62.9 Polyneuropathy, unspecified; K21.9 Gastro-esophageal reflux disease without esophagitis; M79.7 Fibromyalgia; M54.9 Dorsalgia, unspecified; F41.9 Anxiety disorder, unspecified; F17.210 Nicotine dependence, cigarettes, uncomplicated; Z85.6 Personal history of leukemia; Z79.899 Other long term (current) drug therapy
CPT/HCPCS: 36415; 74177; 80053; 80306; 80320; 81000; 83690; 85025; 96361; 96374; 96375; 96376; G0378

== ENCOUNTER 2017-12-21 13:27 | Outpatient (RCR) | payer MEDICARE, OTHER ==
[~2017-12-21 13:27] MED LIST changes: +ACET-168 PO; +IMAT400T7 PO; +MORP15TA PO; +OMEP20CA12 PO; +ONDA4TAB10 PO; +ZOLP10TA5 PO
[2017-12-21 13:40] LABS: BASOPHILS % (AUTO) 0 % (0-10); EOSINOPHILS # (AUTO) 0.5 10^3/uL (0.0-0.3); EOSINOPHILS % (AUTO) 7 % (0-10); HEMATOCRIT 35 % (40-54); HEMOGLOBIN 12.6 G/DL (13.3-17.7); LYMPHOCYTES # (AUTO) 2.2 X 10^3 (1.0-4.0); LYMPHOCYTES % (AUTO) 33 % (12-44); MEAN CORPUSCULAR HEMOGLOBIN 33 PG (25-34); MEAN CORPUSCULAR HGB CONC 36 G/DL (32-36); MEAN CORPUSCULAR VOLUME 90 FL (80-99); MEAN PLATELET VOLUME 10.9 FL (7.4-10.4); MONOCYTES # (AUTO) 0.3 X 10^3 (0.0-1.0); MONOCYTES % (AUTO) 5 % (0-12); NEUTROPHILS # (AUTO) 3.8 X 10^3 (1.8-7.8); NEUTROPHILS % (AUTO) 55 % (42-75); PLATELET COUNT 189 10^3/uL (130-400); RED BLOOD COUNT 3.84 10^6/uL (4.35-5.85); RED CELL DISTRIBUTION WIDTH 14.3 % (10.0-14.5); WHITE BLOOD COUNT 6.9 10^3/uL (4.3-11.0)
[2017-12-21 13:58] LABS: ALANINE AMINOTRANSFERASE 31 U/L (0-55); ALBUMIN 4.2 GM/DL (3.2-4.5); ALKALINE PHOSPHATASE 61 U/L (40-136); BILIRUBIN,TOTAL 0.3 MG/DL (0.1-1.0); BUN/CREATININE RATIO 10; CALCIUM 8.8 MG/DL (8.5-10.1); CARBON DIOXIDE 25 MMOL/L (21-32); CHLORIDE 109 MMOL/L (98-107); CREATININE SERUM 0.86 MG/DL (0.60-1.30); GFR ESTIMATED > 60; GLUCOSE 97 MG/DL (70-105); POTASSIUM 3.5 MMOL/L (3.6-5.0); SODIUM 144 MMOL/L (135-145); TOTAL PROTEIN 6.5 GM/DL (6.4-8.2)
== END 2018-03-21 | disposition home or self-care (01) ==
LOC: ONC 13:27
PROVIDERS: ATTEND Internal Medicine Hematology & Oncology
DX: C92.10 Chronic myeloid leukemia, BCR/ABL-positive, not having achieved remission (principal); D64.9 Anemia, unspecified; K76.9 Liver disease, unspecified; F32.9 Major depressive disorder, single episode, unspecified; F41.9 Anxiety disorder, unspecified; G62.9 Polyneuropathy, unspecified; R42 Dizziness and giddiness; Z87.891 Personal history of nicotine dependence; Z79.899 Other long term (current) drug therapy
CPT/HCPCS: 36415; 80053; 85025; 99213

== ENCOUNTER 2018-06-22 08:33 | Outpatient (RCR) | payer MEDICARE, OTHER ==
[2018-03-29 13:25] LABS: BASOPHILS % (AUTO) 1 % (0-10); EOSINOPHILS # (AUTO) 0.4 10^3/uL (0.0-0.3); EOSINOPHILS % (AUTO) 6 % (0-10); HEMATOCRIT 39 % (40-54); LYMPHOCYTES # (AUTO) 1.5 X 10^3 (1.0-4.0); LYMPHOCYTES % (AUTO) 21 % (12-44); MEAN CORPUSCULAR HEMOGLOBIN 32 PG (25-34); MEAN CORPUSCULAR HGB CONC 36 G/DL (32-36); MEAN CORPUSCULAR VOLUME 90 FL (80-99); MEAN PLATELET VOLUME 10.8 FL (7.4-10.4); MONOCYTES # (AUTO) 0.4 X 10^3 (0.0-1.0); MONOCYTES % (AUTO) 5 % (0-12); NEUTROPHILS # (AUTO) 4.8 X 10^3 (1.8-7.8); NEUTROPHILS % (AUTO) 67 % (42-75); PLATELET COUNT 245 10^3/uL (130-400); RED CELL DISTRIBUTION WIDTH 13.9 % (10.0-14.5); WHITE BLOOD COUNT 7.2 10^3/uL (4.3-11.0)
[2018-03-29 13:47] LABS: ALANINE AMINOTRANSFERASE 19 U/L (0-55); ALBUMIN 4.8 GM/DL (3.2-4.5); ALKALINE PHOSPHATASE 73 U/L (40-136); BILIRUBIN,TOTAL 0.4 MG/DL (0.1-1.0); BUN/CREATININE RATIO 16; CALCIUM 9.1 MG/DL (8.5-10.1); CARBON DIOXIDE 23 MMOL/L (21-32); CHLORIDE 108 MMOL/L (98-107); CREATININE SERUM 0.92 MG/DL (0.60-1.30); GFR ESTIMATED > 60; GLUCOSE 119 MG/DL (70-105); POTASSIUM 3.8 MMOL/L (3.6-5.0); SODIUM 140 MMOL/L (135-145)
[2018-06-21 13:19] LABS: BASOPHILS % (AUTO) 1 % (0-10); EOSINOPHILS # (AUTO) 0.2 10^3/uL (0.0-0.3); EOSINOPHILS % (AUTO) 6 % (0-10); HEMATOCRIT 36 % (40-54); HEMOGLOBIN 12.3 G/DL (13.3-17.7); LYMPHOCYTES # (AUTO) 1.3 X 10^3 (1.0-4.0); LYMPHOCYTES % (AUTO) 41 % (12-44); MEAN CORPUSCULAR HEMOGLOBIN 32 PG (25-34); MEAN CORPUSCULAR HGB CONC 35 G/DL (32-36); MEAN CORPUSCULAR VOLUME 93 FL (80-99); MEAN PLATELET VOLUME 10.6 FL (7.4-10.4); MONOCYTES # (AUTO) 0.2 X 10^3 (0.0-1.0); MONOCYTES % (AUTO) 7 % (0-12); NEUTROPHILS # (AUTO) 1.5 X 10^3 (1.8-7.8); NEUTROPHILS % (AUTO) 45 % (42-75); PLATELET COUNT 151 10^3/uL (130-400); WHITE BLOOD COUNT 3.2 10^3/uL (4.3-11.0)
[2018-06-21 13:36] LABS: BUN/CREATININE RATIO 12; CARBON DIOXIDE 27 MMOL/L (21-32); CHLORIDE 106 MMOL/L (98-107); SODIUM 140 MMOL/L (135-145)
[2018-06-21 13:37] LABS: ALANINE AMINOTRANSFERASE 23 U/L (0-55); ALBUMIN 4.4 GM/DL (3.2-4.5); ALKALINE PHOSPHATASE 61 U/L (40-136); BILIRUBIN,TOTAL 0.4 MG/DL (0.1-1.0); CALCIUM 9.5 MG/DL (8.5-10.1); GFR ESTIMATED > 60; GLUCOSE 81 MG/DL (70-105); TOTAL PROTEIN 6.3 GM/DL (6.4-8.2)
== END 2018-06-27 | disposition home or self-care (01) ==
LOC: ONC 08:33
PROVIDERS: ATTEND Internal Medicine Hematology & Oncology
DX: C92.10 Chronic myeloid leukemia, BCR/ABL-positive, not having achieved remission (principal); D64.9 Anemia, unspecified; K76.9 Liver disease, unspecified; F32.9 Major depressive disorder, single episode, unspecified; F41.9 Anxiety disorder, unspecified; G62.9 Polyneuropathy, unspecified; R42 Dizziness and giddiness; Z87.891 Personal history of nicotine dependence; Z79.899 Other long term (current) drug therapy
CPT/HCPCS: 36415; 80053; 81206; 85025; 99213

== ENCOUNTER 2018-06-25 17:42 | Emergency (ER) | payer MEDICARE, OTHER ==
[~2018-06-25] VITALS: Ht 165.1 cm; Wt 77.1 kg
[2018-06-25] MEDS ORDERED: TETRACAINE 0.5% OPHTH SOLN 4 ML BTL (SINGLE DOSE ONLY) OU ONE (18:30)
[2018-06-25] MEDS ORDERED: BSS 15 ML IR ONE (18:30)
[2018-06-25] MEDS ORDERED: FLUORESCEIN (FLUOR-I-STRIPS) 1 MG STRP OU ONE (18:30)
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
[2018-06-25] MEDS ORDERED: RX-TOBRAMYCIN (TOBREX) 0.3% OP OINT 3.5 GM TUBE ONE (18:57)
[2018-06-25] MEDS ORDERED: RX-HYDROCODONE/APAP 5/325 MG #4 TAB PK PO PRN (19:00)
--- OUTSIDE RECORDS SUMMARY | 2018-06-25 19:00 | XMS REPORT | Clinical Summary ---
Author Author Organization Address Unknown Phone Unavailable Care Team Providers Care Waistband Setter Name Role Phone PCP Unavailable Allergies Not on File Current Medications Not on file Active Problems Not on file Social History Tobacco Use Types Packs/Day Years Used Date Never Assessed Sex Assigned at Date Recorded Not on file Last Filed Vital Signs Not on file Plan of Treatment Not on file Results Not on filefrom Last 3 Months
--- OUTSIDE RECORDS SUMMARY | 2018-06-25 19:00 | XMS REPORT ---
Author Author RENETTA ECHEVERRIA [facility] Address [address] [place] [address] Phone Unavailable Care Team Providers Care Research Quality Assurance Specialist Name Role Phone RENETTA ECHEVERRIA Unavailable Unavailable PROBLEMS Unknown Problems ALLERGIES No Information ENCOUNTERS Encounter Location Date Diagnosis [facility] [address] [facility] [id number] [id number] Jan, [facility] [address] [id number] Dec, Dental examination Z01.20 IMMUNIZATIONS No Known Immunizations SOCIAL HISTORY Never Assessed REASON FOR VISIT Establish Care PLAN OF CARE VITAL SIGNS MEDICATIONS Unknown Medications RESULTS No Results PROCEDURES Procedure Date Ordered Result Body Site Billing Notes on claim Jan 19, 2018 INSTRUCTIONS MEDICATIONS ADMINISTERED No Known Medications
--- OUTSIDE RECORDS SUMMARY | 2018-06-25 19:00 | XMS REPORT ---
Author Author FARHAD HILL Organization [facility] Address [address] [place] [address] Care Team Providers Care Spring Tester Name Role Phone FARHAD HILL Unavailable PROBLEMS Unknown Problems ALLERGIES Substance Reaction Event Type Date Status Tegretol Unknown Drug Allergy Jan, Active Penicillin G Potassium Unknown Drug Allergy Jan, Active Fentanyl Unknown Drug Allergy Jan, Active ENCOUNTERS Encounter Location Date Diagnosis [facility] [id number] [place] [phone] Jan, Caries K02.9 ; Dental examination Z01.20 and Periodontitis K05.30 [facility] [address] [place], [place] [id number] [place] [phone] Dec, Dental examination Z01.20 IMMUNIZATIONS No Known Immunizations SOCIAL HISTORY Never Assessed REASON FOR VISIT est care PLAN OF CARE VITAL SIGNS Blood pressure systolic 128 mmHg 2018-01-20 Blood pressure diastolic 86 mmHg 2018-01-20 MEDICATIONS Medication Instructions Dosage Frequency Start Date End Date Duration Status Gleevec 400 MG Orally Once a day 1 tablet with a meal and a large glass of water 24h 30 day(s) Active Morphine Sulfate 15 MG Orally every 4 hrs 1 tablet as needed 4h Active Mirtazapine 15 MG Orally Once a day 1 tablet at bedtime 24h 30 day(s ) Active Ambien 10 MG Orally Once a day 1 tablet at bedtime as needed 24h Active Xanax 2 MG Orally Twice a day 1 tablet 12h Active Omeprazole 20 MG Orally Once a day 1 capsule 24h 30 day(s) Active RESULTS No Results PROCEDURES Procedure Date Ordered Result Body Site COMP ORAL EVALUATION - NEW/EST PT Jan 20, 2018 INTRAORL-PERIAPICAL 1 FILM [id number] Jan 20, 2018 INTRAORL-PERIAPICAL EA ADD FILM Jan 20, 2018 INTRAORL-PERIAPICAL EA ADD FILM Jan 20, 2018 PANORAMIC FILM SEE ALSO CODE [id number] Jan 20, 2018 BITEWINGS - FOUR FILMS Jan 20, 2018 INSTRUCTIONS MEDICATIONS ADMINISTERED No Known Medications MEDICAL (GENERAL) HISTORY Type Description Date Medical History High Blood Pressure Medical History Leukemia Medical History Blood Transfusion 06/2012 Medical History Arthritis Medical History Small Fiber periphial neuropathy Surgical History Partail mess removal 08/2017 Surgical History Multiple surgeries/from [facility] Hospitalization History Multiple times (see above)
[2018-06-25 19:01] VITALS: BP 123/87
--- OUTSIDE RECORDS SUMMARY | 2018-06-25 19:04 | XMS REPORT | Continuity of Care Document ---
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 MATEUSZ WHITNEY MD, Ot G62.9 POLYNEUROPATHY, UNSPECIFIED 02/12/2017 MATEUSZ WHITNEY MD, Ot K76.9 LIVER DISEASE, UNSPECIFIED 02/12/2017 MATEUSZ WHITNEY MD, Ot R42 DIZZINESS AND GIDDINESS 02/12/2017 MATEUSZ WHITNEY MD, Ot Z79.899 OTHER CABINET MAKER (CURRENT) DRUG THERAPY 02/12/2017 MATEUSZ WHITNEY MD, Ot Z87.891 PERSONAL HISTORY OF NICOTINE DEPENDENCE 04/05/2017 MATEUSZ WHITNEY MD, Ot C92.10 CHRONIC MYELOID LEUK, BCR/ABL-POSITIVE, 04/05/2017 MATEUSZ WHITNEY MD, Ot D64.9 ANEMIA, UNSPECIFIED 04/05/2017 MATEUSZ WHITNEY MD, Ot F32.9 MAJOR DEPRESSIVE DISORDER, SINGLE EPISOD 04/05/2017 DEVONTE LOPES, MATEUSZ Waggoner F41.9 ANXIETY DISORDER, UNSPECIFIED 04/05/2017 MATEUSZ WHITNEY MD, Ot G62.9 POLYNEUROPATHY, UNSPECIFIED 04/05/2017 MATEUSZ WHITNEY MD, Ot K76.9 LIVER DISEASE, UNSPECIFIED 04/05/2017 MATEUSZ WHITNEY MD Ot R42 DIZZINESS AND GIDDINESS 04/05/2017 MATEUSZ WHITNEY MD Ot Z79.899 OTHER USP (CURRENT) DRUG THERAPY 04/05/2017 MATEUSZ WHITNEY MD, Ot Z87.891 PERSONAL HISTORY OF NICOTINE DEPENDENCE 04/07/2017 DEVONTE LOPES, MATEUSZ Waggoner C92.10 CHRONIC MYELOID LEUK, BCR/ABL-POSITIVE, 04/07/2017 DEVONTE LOPES, MATEUSZ Waggoner D64.9 ANEMIA, UNSPECIFIED 04/07/2017 DEVONTE LOPES, MATEUSZ Waggoner F32.9 MAJOR DEPRESSIVE DISORDER, SINGLE EPISOD 04/07/2017 DEVONTE LOPES, MATEUSZ Waggoner F41.9 ANXIETY DISORDER, UNSPECIFIED 04/07/2017 DEVONTE LOPES, MATEUSZ Waggoner G62.9 POLYNEUROPATHY, UNSPECIFIED 04/07/2017 DEVONTE LOPES, MATEUSZ Ot K76.9 LIVER DISEASE, UNSPECIFIED 04/07/2017 MATEUSZ WHITNEY MD, Ot R42 DIZZINESS AND GIDDINESS 04/07/2017 MATEUSZ WHITNEY MD, Ot Z79.899 OTHER CABINET MAKER (CURRENT) DRUG THERAPY 04/07/2017 MATEUSZ WHITNEY MD, Ot Z87.891 PERSONAL HISTORY OF NICOTINE DEPENDENCE 04/27/2017 LEA LOPES, RNO R Ot 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 04/27/2017 RON TATE MD R Ot G47.00 INSOMNIA, UNSPECIFIED 04/27/2017 LEA LOPES, RON R Ot R29.818 OTHER SYMPTOMS AND SIGNS INVOLVING THE N 05/19/2017 DEVONTE LOPES, MATEUSZ Waggoner C92.10 CHRONIC MYELOID LEUK, BCR/ABL-POSITIVE, 05/19/2017 DEVONTE LOPES, MATEUSZ Waggoner D64.9 ANEMIA, UNSPECIFIED 05/19/2017 DEVONTE LOPES, MATEUSZ Waggoner F32.9 MAJOR DEPRESSIVE DISORDER, SINGLE EPISOD 05/19/2017 DEVONTE LOPES, MATEUSZ Waggoner F41.9 ANXIETY DISORDER, UNSPECIFIED 05/19/2017 DEVONTE LOPES, MATEUSZ Ot G62.9 POLYNEUROPATHY, UNSPECIFIED 05/19/2017 DEVONTE LOPES, MATEUSZ Ot K76.9 LIVER DISEASE, UNSPECIFIED 05/19/2017 DEVONTE LOPES, MATEUSZ Ot R42 DIZZINESS AND GIDDINESS 05/19/2017 MATEUSZ WHITNEY MD Ot Z79.899 OTHER USP (CURRENT) DRUG THERAPY 05/19/2017 MATEUSZ WHITNEY MD [...] MATEUSZ Ot K76.9 LIVER DISEASE, UNSPECIFIED 07/05/2017 MATEUSZ WHITNEY MD Ot R42 DIZZINESS AND GIDDINESS 07/05/2017 MATEUSZ WHITNEY MD Ot Z79.899 OTHER USP (CURRENT) DRUG THERAPY 07/05/2017 MATEUSZ WHITNEY MD Ot Z87.891 PERSONAL HISTORY OF NICOTINE DEPENDENCE 07/06/2017 MATEUSZ WHITNEY MD Ot C92.10 CHRONIC MYELOID LEUK, BCR/ABL-POSITIVE, 07/06/2017 MATEUSZ WHITNEY MD Ot D64.9 ANEMIA, UNSPECIFIED 07/06/2017 DEVONTE LOPES, MATEUSZ Ot F32.9 MAJOR DEPRESSIVE DISORDER, SINGLE EPISOD 07/06/2017 DEVONTE LOPES, MATEUSZ Ot F41.9 ANXIETY DISORDER, UNSPECIFIED 07/06/2017 DEVONTE LOPES, MATEUSZ Ot G62.9 POLYNEUROPATHY, UNSPECIFIED 07/06/2017 MATEUSZ WHITNEY MD Ot K76.9 LIVER DISEASE, UNSPECIFIED 07/06/2017 MATEUSZ WHITNEY MD Ot R42 DIZZINESS AND GIDDINESS 07/06/2017 MATEUSZ WHITNEY MD Ot Z79.899 OTHER USP (CURRENT) DRUG THERAPY 07/06/2017 MATEUSZ WHITNEY MD [...] WITH FOREIGN BODY, LEFT H 07/27/2017 RON TATE MD Ot W34.00XD ACCIDENTAL DISCHARGE FROM UNSP FIREARMS 07/27/2017 RON TATE MD Ot Y99.8 OTHER EXTERNAL CAUSE STATUS 07/27/2017 RON TATE MD Ot M79.651 PAIN IN RIGHT THIGH 07/27/2017 RON TATE MD R Ot D72.829 ELEVATED WHITE BLOOD CELL COUNT, UNSPECI 07/27/2017 MATEUSZ WHITNEY MD, Ot C92.10 CHRONIC MYELOID LEUK, BCR/ABL-POSITIVE, 07/27/2017 MATEUSZ WHITNEY MD, Ot C92.10 CHRONIC MYELOID LEUK, BCR/ABL-POSITIVE, 07/27/2017 MATEUSZ WHITNEY MD, Ot D64.9 ANEMIA, UNSPECIFIED 07/27/2017 MATEUSZ WHITNEY MD, Ot F32.9 MAJOR DEPRESSIVE DISORDER, SINGLE EPISOD 07/27/2017 MATEUSZ WHITNEY MD, Ot F41.9 ANXIETY DISORDER, UNSPECIFIED 07/27/2017 MATEUSZ WHITNEY MD, Ot G62.9 POLYNEUROPATHY, UNSPECIFIED 07/27/2017 MATEUSZ WHITNEY MD, Ot K76.9 LIVER DISEASE, UNSPECIFIED 07/27/2017 MATEUSZ WHITNEY MD, Ot R42 DIZZINESS AND GIDDINESS 07/27/2017 MATEUSZ WHITNEY MD, Ot Z79.899 OTHER CABINET MAKER (CURRENT) DRUG THERAPY 07/27/2017 MATEUSZ WHITNEY MD, Ot Z87.891 PERSONAL HISTORY OF NICOTINE DEPENDENCE 07/28/2017 MATEUSZ WHITNEY MD, Ot C92.10 CHRONIC MYELOID LEUK, BCR/ABL-POSITIVE, 07/28/2017 DEVONTE LOPES, MATEUSZ Ot D64.9 ANEMIA, UNSPECIFIED 07/28/2017 DEVONTE LOPES, MATEUSZ Ot F32.9 MAJOR DEPRESSIVE DISORDER, SINGLE EPISOD 07/28/2017 DEVONTE LOPES, MATEUSZ Ot F41.9 ANXIETY DISORDER, UNSPECIFIED 07/28/2017 DEVONTE LOPES, MATEUSZ Ot G62.9 POLYNEUROPATHY, UNSPECIFIED 07/28/2017 DEVONTE LOPES, MATEUSZ Ot K76.9 LIVER DISEASE, UNSPECIFIED 07/28/2017 DEVONTE LOPES, MATEUSZ Ot R42 DIZZINESS AND GIDDINESS 07/28/2017 DEVONTE LOPES, MATEUSZ Ot Z79.899 OTHER CABINET MAKER (CURRENT) DRUG THERAPY 07/28/2017 DEVONTE LOPES, MATEUSZ Ot Z87.891 PERSONAL HISTORY OF NICOTINE DEPENDENCE 08/13/2017 DEVONTE LOPES, MATEUSZ Ot C92.10 CHRONIC MYELOID LEUK, BCR/ABL-POSITIVE, 08/13/2017 MATEUSZ WHITNEY MD Ot D64.9 ANEMIA, UNSPECIFIED 08/13/2017 DEVONTE LOPES, MATEUSZ Ot F32.9 MAJOR DEPRESSIVE DISORDER, SINGLE EPISOD 08/13/2017 DEVONTE LOPES, MATEUSZ Ot F41.9 ANXIETY DISORDER, UNSPECIFIED 08/13/2017 DEVONTE LOPES, MATEUSZ Ot G62.9 POLYNEUROPATHY, UNSPECIFIED 08/13/2017 DEVONTE LOPES, MATEUSZ Ot K76.9 LIVER DISEASE, UNSPECIFIED 08/13/2017 DEVONTE LOPES, MATEUSZ Ot R42 DIZZINESS AND GIDDINESS 08/13/2017 DEVONTE LOPES, MATEUSZ Ot Z79.899 OTHER USP (CURRENT) DRUG THERAPY 08/13/2017 DEVONTE LOPES, MATEUSZ Ot Z87.891 PERSONAL HISTORY OF NICOTINE DEPENDENCE 09/07/2017 DEVONTE LOPES, MATEUSZ Ot C92.10 CHRONIC MYELOID LEUK, BCR/ABL-POSITIVE, 09/07/2017 DEVONTE LOPES, MATEUSZ Ot D64.9 ANEMIA, UNSPECIFIED 09/07/2017 DEVONTE LOPES, MATEUSZ Ot F32.9 MAJOR DEPRESSIVE DISORDER, SINGLE EPISOD 09/07/2017 DEVONTE LOPES, MATEUSZ Ot F41.9 ANXIETY DISORDER, UNSPECIFIED 09/07/2017 MATEUSZ WHITNEY MD, Ot G62.9 POLYNEUROPATHY, UNSPECIFIED 09/07/2017 MATEUSZ WHITNEY MD Ot K76.9 LIVER DISEASE, UNSPECIFIED 09/07/2017 MATEUSZ WHITNEY MD Ot R42 DIZZINESS AND GIDDINESS 09/07/2017 MATEUSZ WHITNEY MD Ot Z79.899 OTHER CABINET MAKER (CURRENT) DRUG THERAPY 09/07/2017 MATEUSZ WHITNEY MD Ot Z87.891 PERSONAL HISTORY OF NICOTINE DEPENDENCE 09/09/2017 MARISEL NASH RUBBER CURER-C Ot R11.2 NAUSEA WITH VOMITING, UNSPECIFIED 09/11/2017 EDMUNDO OLVERA MD Ot F17.210 NICOTINE DEPENDENCE, CIGARETTES, UNCOMPL 09/11/2017 EDMUNDO OLVERA MD Ot F41.9 ANXIETY DISORDER, UNSPECIFIED 09/11/2017 EDMUNDO OLVERA MD Ot H57.12 OCULAR PAIN, LEFT EYE 09/11/2017 EDMUNDO OLVERA MD, Ot H57.8 OTHER SPECIFIED DISORDERS OF EYE AND ADN 09/11/2017 EDMUNDO OLVERA MD Ot I10 ESSENTIAL (PRIMARY) HYPERTENSION 09/11/2017 EDMUNDO OLVERA MD, Ot I25.10 ATHSCL HEART DISEASE OF [place] CORONARY 09/11/2017 EDMUNDO OLVERA MD Ot K21.9 GASTRO-ESOPHAGEAL REFLUX DISEASE WITHOUT 09/11/2017 EDMUNDO OLVERA MD Ot 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 09/11/2017 EDMUNDO OLVERA MD Ot X58.XXXA EXPOSURE TO OTHER SPECIFIED FACTORS, INI 09/11/2017 EDMUNDO OLVERA MD Ot Z80.0 FAMILY HISTORY OF MALIGNANT NEOPLASM OF 09/11/2017 EDMUNDO OLVERA MD Ot Z85.6 PERSONAL HISTORY OF LEUKEMIA 09/11/2017 EDMUNDO OLVERA MD, Ot Z88.0 ALLERGY STATUS TO PENICILLIN 09/11/2017 EDMUNDO OLVERA MD Ot Z88.8 ALLERGY STATUS TO OTH DRUG/MEDS/BIOL SUB 09/11/2017 EDMUNDO OLVERA MD, Ot Z93.3 COLOSTOMY STATUS 09/17/2017 EDMUNDO OLVERA MD Ot F17.210 NICOTINE DEPENDENCE, CIGARETTES, UNCOMPL 09/17/2017 EDMUNDO OLVERA MD, Ot F41.9 ANXIETY DISORDER, UNSPECIFIED 09/17/2017 EDMUNDO OLVERA MD, Ot H57.12 OCULAR PAIN, LEFT EYE 09/17/2017 EDMUNDO OLVERA MD, Ot H57.8 OTHER SPECIFIED DISORDERS OF EYE AND ADN 09/17/2017 EDMUNDO OLVERA MD, Ot I10 ESSENTIAL (PRIMARY) HYPERTENSION 09/17/2017 EDMUNDO OLVERA MD, Ot I25.10 ATHSCL HEART DISEASE OF [place] CORONARY 09/17/2017 EDMUNDO OLVERA MD, Ot K21.9 GASTRO-ESOPHAGEAL REFLUX DISEASE WITHOUT 09/17/2017 EDMUNDO OLVERA MD, Ot 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 09/17/2017 EDMUNDO OLVERA MD Ot X58.XXXA EXPOSURE TO [...] MD, Ot Z93.3 COLOSTOMY STATUS 09/28/2017 MARISEL NASH-C Ot R11.2 NAUSEA WITH VOMITING, UNSPECIFIED 10/04/2017 MATEUSZ WHITNEY MD Ot C92.10 CHRONIC MYELOID LEUK, BCR/ABL-POSITIVE, 10/04/2017 MATEUSZ WHITNEY MD, Ot D64.9 ANEMIA, UNSPECIFIED 10/04/2017 MATEUSZ WHITNEY MD Ot F32.9 MAJOR DEPRESSIVE DISORDER, SINGLE EPISOD 10/04/2017 MATEUSZ WHITNEY MD, Ot F41.9 ANXIETY DISORDER, UNSPECIFIED 10/04/2017 XUN MD, HART-CECILIO Ot G62.9 POLYNEUROPATHY, UNSPECIFIED 10/04/2017 MATEUSZ WHITNEY MD Ot K76.9 LIVER DISEASE, UNSPECIFIED 10/04/2017 MATEUSZ WHITNEY MD Ot R42 DIZZINESS AND GIDDINESS 10/04/2017 MATEUSZ WHITNEY MD Ot Z79.899 OTHER USP (CURRENT) DRUG THERAPY 10/04/2017 MATEUSZ WHITNEY MD Ot Z87.891 PERSONAL HISTORY OF NICOTINE DEPENDENCE 10/05/2017 MATEUSZ WHITNEY MD Ot C92.10 CHRONIC MYELOID LEUK, BCR/ABL-POSITIVE, 10/05/2017 MATEUSZ WHITNEY MD Ot D64.9 ANEMIA, UNSPECIFIED 10/05/2017 MATEUSZ WHITNEY MD Ot F32.9 MAJOR DEPRESSIVE DISORDER, SINGLE EPISOD 10/05/2017 MATEUSZ WHITNEY MD Ot F41.9 ANXIETY DISORDER, UNSPECIFIED 10/05/2017 MATEUSZ WHITNEY MD Ot G62.9 POLYNEUROPATHY, UNSPECIFIED 10/05/2017 MATEUSZ WHITNEY MD Ot K76.9 LIVER DISEASE, UNSPECIFIED 10/05/2017 MATEUSZ WHITNEY MD Ot R42 DIZZINESS AND GIDDINESS 10/05/2017 MATEUSZ WHITNEY MD Ot Z79.899 OTHER CABINET MAKER (CURRENT) DRUG THERAPY 10/05/2017 MATEUSZ WHITNEY MD Ot Z87.891 PERSONAL HISTORY OF NICOTINE DEPENDENCE 11/10/2017 CHANTELLE KWAN MD Ot C92.11 CHRONIC MYELOID LEUKEMIA, BCR/ABL-POSITI 11/10/2017 CHANTELLE KWAN MD Ot E78.5 HYPERLIPIDEMIA, UNSPECIFIED 11/10/2017 CHANTELLE KWAN MD Ot F43.20 ADJUSTMENT DISORDER, UNSPECIFIED 11/10/2017 CHANTELLE KWAN MD Ot G62.9 POLYNEUROPATHY, UNSPECIFIED 11/10/2017 CHANTELLE KWAN MD Ot G89.4 CHRONIC PAIN SYNDROME 11/10/2017 CHANTELLE KWAN MD Ot I10 ESSENTIAL (PRIMARY) HYPERTENSION 11/10/2017 CHANTELLE KWAN MD Ot I25.10 ATHSCL HEART DISEASE OF [place] CORONARY 11/10/2017 CHANTELLE KWAN MD Ot M79.7 FIBROMYALGIA 11/10/2017 CHANTELLE KWAN MD Ot R07.9 CHEST PAIN, UNSPECIFIED 11/10/2017 CHANTELLE KWAN MD Ot Z79.899 OTHER CABINET MAKER (CURRENT) DRUG THERAPY 11/10/2017 CHANTELLE KWAN MD Ot Z87.891 PERSONAL HISTORY OF NICOTINE [...] MD Ot I25.10 ATHSCL HEART DISEASE OF [place] CORONARY 11/12/2017 CHANTELLE KWAN MD Ot M79.7 FIBROMYALGIA 11/12/2017 CHANTELLE KWAN MD Ot R07.9 CHEST PAIN, UNSPECIFIED 11/12/2017 CHANTELLE KWAN MD Ot Z79.899 OTHER CABINET MAKER (CURRENT) DRUG THERAPY 11/12/2017 CHANTELLE KWAN MD Ot Z87.891 PERSONAL HISTORY OF NICOTINE DEPENDENCE 11/30/2017 BROOKE LOPES, CHERYL Callahan Ot F17.210 NICOTINE DEPENDENCE, CIGARETTES, UNCOMPL 11/30/2017 BROOKE LOPES, CHERYL Callahan Ot F41.9 ANXIETY DISORDER, UNSPECIFIED 11/30/2017 CHERYL COX MD Ot G62.9 POLYNEUROPATHY, UNSPECIFIED 11/30/2017 CHERYL COX MD Ot I10 ESSENTIAL (PRIMARY) HYPERTENSION 11/30/2017 CHERYL COX MD Ot I25.10 ATHSCL HEART DISEASE OF [place] CORONARY 11/30/2017 CHERYL COX MD Ot K21.9 GASTRO-ESOPHAGEAL REFLUX DISEASE WITHOUT 11/30/2017 CHERYL COX MD Ot K56.600 PARTIAL INTESTINAL OBSTRUCTION, UNSPECIF 11/30/2017 CHERYL COX MD Ot M54.9 DORSALGIA, UNSPECIFIED 11/30/2017 CHERYL COX MD Ot M79.7 FIBROMYALGIA 11/30/2017 BROOKE LOPES, CHERYL Callahan Ot Z79.899 OTHER CABINET MAKER (CURRENT) DRUG THERAPY 11/30/2017 BROOKE LOPES, CHERYL Callahan Ot Z85.6 PERSONAL HISTORY OF LEUKEMIA 12/09/2017 Ot 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 12/09/2017 Ot I10 ESSENTIAL ( PRIMARY) HYPERTENSION 12/09/2017 Ot M79.1 MYALGIA 12/09/2017 Ot R07.89 OTHER CHEST PAIN 12/09/2017 Ot 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 12/09/2017 Ot I10 ESSENTIAL ( PRIMARY) HYPERTENSION 12/09/2017 Ot M79.1 MYALGIA 12/09/2017 Ot R07.89 OTHER CHEST PAIN 12/16/2017 ADORE LOPES, RIZWANA Huggins Ot V58.69 OTH MED,LT,CURRENT USE 12/16/2017 RIZWANA AVITIA MD Ot V58.83 ENCOUNTER FOR THERAPEUTIC DRUG MONITORIN 12/16/2017 RIZWANA AVITIA MD Ot V58.69 OTH MED,LT,CURRENT USE 12/16/2017 RIZWANA AVITIA MD Ot V58.83 ENCOUNTER FOR THERAPEUTIC DRUG MONITORIN 12/16/2017 RIZWANA AVITIA MD Ot V58.69 OTH MED,LT,CURRENT USE 12/16/2017 RIZWANA AVITIA MD Ot V58.83 ENCOUNTER FOR THERAPEUTIC DRUG MONITORIN 12/16/2017 LEA LOPES, RON R Ot 787.02 NAUSEA ALONE 12/16/2017 LEA LOPES, RON R Ot 560.9 INTESTINAL OBSTRUCT NOS 12/16/2017 LEA LOPES, RON R Ot V45.89 POSTSURGICAL STATES NEC 12/16/2017 LEA LOPES, RON R Ot S71.042D PUNCTURE WOUND WITH FOREIGN BODY, LEFT H 12/16/2017 LEA LOPES, RON R Ot W34.00XD ACCIDENTAL DISCHARGE FROM UNSP FIREARMS 12/16/2017 LEA LOPES, RON R Ot Y99.8 OTHER EXTERNAL CAUSE STATUS 12/16/2017 LEA LOPES, RON R Ot M79.651 PAIN IN RIGHT THIGH 12/16/2017 LEA LOPES, RON R Ot D72.829 ELEVATED WHITE BLOOD CELL COUNT, UNSPECI 12/16/2017 DEVONTE LOPES, MATEUSZ Waggoner C92.10 CHRONIC MYELOID LEUK, BCR/ABL-POSITIVE, 02/14/2018 MATEUSZ WHITNEY MD, Ot C92.10 CHRONIC MYELOID LEUK, BCR/ABL-POSITIVE, 02/14/2018 MATEUSZ WHITNEY MD Ot D64.9 ANEMIA, UNSPECIFIED 02/14/2018 DEVONTE LOPES, MATEUSZ Ot F32.9 MAJOR DEPRESSIVE DISORDER, SINGLE EPISOD 02/14/2018 DEVONTE LOPES, MATEUSZ Ot F41.9 ANXIETY DISORDER, UNSPECIFIED 02/14/2018 DEVONTE LOPES, MATEUSZ Ot G62.9 POLYNEUROPATHY, UNSPECIFIED 02/14/2018 DEVONTE LOPES, MATEUSZ Ot K76.9 LIVER DISEASE, UNSPECIFIED 02/14/2018 MATEUSZ WHITNEY MD Ot R42 DIZZINESS AND GIDDINESS 02/14/2018 DEVONTE LOPES, MATEUSZ Ot Z79.899 OTHER CABINET MAKER (CURRENT) DRUG THERAPY 02/14/2018 MATEUSZ WHITNEY MD Ot Z87.891 PERSONAL HISTORY OF NICOTINE DEPENDENCE 03/21/2018 MATEUSZ WHITNEY MD Ot C92.10 CHRONIC MYELOID LEUK, BCR/ABL-POSITIVE, 03/21/2018 MATEUSZ WHITNEY MD Ot D64.9 ANEMIA, UNSPECIFIED 03/21/2018 MATEUSZ WHITNEY MD Ot F32.9 MAJOR DEPRESSIVE DISORDER, SINGLE EPISOD 03/21/2018 DEVONTE LOPES, MATEUSZ Ot F41.9 ANXIETY DISORDER, UNSPECIFIED 03/21/2018 DEVONTE LOPES, MATEUSZ Ot G62.9 POLYNEUROPATHY, UNSPECIFIED 03/21/2018 DEVONTE LOPES, MATEUSZ Ot K76.9 LIVER DISEASE, UNSPECIFIED 03/21/2018 MATEUSZ WHITNEY MD Ot R42 DIZZINESS AND GIDDINESS 03/21/2018 DEVONTE LOPES, MATEUSZ Ot Z79.899 OTHER CABINET MAKER (CURRENT) DRUG THERAPY 03/21/2018 MATEUSZ WHITNEY MD Ot Z87.891 PERSONAL HISTORY OF NICOTINE DEPENDENCE 03/23/2018 MATEUSZ WHITNEY MD Ot C92.10 CHRONIC MYELOID LEUK, BCR/ABL-POSITIVE, 03/23/2018 MATEUSZ WHITNEY MD Ot D64.9 ANEMIA, UNSPECIFIED 03/23/2018 MATEUSZ WHITNEY MD Ot F32.9 MAJOR DEPRESSIVE DISORDER, SINGLE EPISOD 03/23/2018 DEVONTE LOPES, MATEUSZ Ot F41.9 ANXIETY DISORDER, UNSPECIFIED 03/23/2018 DEVONTE LOPES, MATEUSZ Ot G62.9 POLYNEUROPATHY, UNSPECIFIED 03/23/2018 DEVONTE LOPES, MATEUSZ Ot K76.9 LIVER DISEASE, UNSPECIFIED 03/23/2018 DEVONTE LOPES, MATEUSZ Ot R42 DIZZINESS AND GIDDINESS 03/23/2018 DEVONTE LOPES, MATEUSZ Ot Z79.899 OTHER CABINET MAKER (CURRENT) DRUG THERAPY 03/23/2018 DEVONTE LOPES, MATEUSZ Ot Z87.891 PERSONAL HISTORY OF NICOTINE DEPENDENCE 03/30/2018 DEVONTE LOPES, MATEUSZ Waggoner C92.10 CHRONIC MYELOID LEUK, BCR/ABL-POSITIVE, 03/30/2018 DEVONTE LOPES, MATEUSZ Ot D64.9 ANEMIA, UNSPECIFIED 03/30/2018 MATEUSZ WHITNEY MD, Ot F32.9 MAJOR DEPRESSIVE DISORDER, SINGLE EPISOD 03/30/2018 DEVONTE LOPES, MATEUSZ Waggoner F41.9 ANXIETY DISORDER, UNSPECIFIED 03/30/2018 DEVONTE LOPES, MATEUSZ Ot G62.9 POLYNEUROPATHY, UNSPECIFIED 03/30/2018 DEVONTE LOPES, MATEUSZ Ot K76.9 LIVER DISEASE, UNSPECIFIED 03/30/2018 DEVONTE LOPES, MATEUSZ Ot R42 DIZZINESS AND GIDDINESS 03/30/2018 DEVONTE LOPES, MATEUSZ Ot Z79.899 OTHER CABINET MAKER (CURRENT) DRUG THERAPY 03/30/2018 DEVONTE LOPES, MATEUSZ Ot Z87.891 PERSONAL HISTORY OF NICOTINE DEPENDENCE 05/13/2018 DEVONTE LOPES, MATEUSZ Waggoner C92.10 CHRONIC MYELOID LEUK, BCR/ABL-POSITIVE, 05/13/2018 DEVONTE LOPES, MATEUSZ Ot D64.9 ANEMIA, UNSPECIFIED 05/13/2018 DEVONTE LOPSE, MATEUSZ Ot F32.9 MAJOR DEPRESSIVE DISORDER, SINGLE EPISOD 05/13/2018 DEVONTE LOPES, MATEUSZ Ot F41.9 ANXIETY DISORDER, UNSPECIFIED 05/13/2018 DEVONTE LOPES, MATEUSZ Ot G62.9 POLYNEUROPATHY, UNSPECIFIED 05/13/2018 DEVONTE LOPES, MATEUSZ Ot K76.9 LIVER DISEASE, UNSPECIFIED 05/13/2018 MATEUSZ WHITNEY MD Ot R42 DIZZINESS AND GIDDINESS 05/13/2018 MATEUSZ WHITNEY MD Ot Z79.899 OTHER CABINET MAKER (CURRENT) DRUG THERAPY 05/13/2018 MATEUSZ WHITNEY MD Ot Z87.891 PERSONAL HISTORY [...] STAIN RESULT FEW WBC'S, NO BACTERIA OBSERVED NRG Bacteria identification in wound by culture - 09/22/16 13:20 Bacteria identification in wound by culture [id number] NRG FREE TEXT EXTERNAL ID=[email or web address] CANIS, 98% PROBABILITY NRG QUANTITY OF GROWTH Moderate Growth NRG FREE TEXT ENTRY 2 DETERMINED BY IN-HOUSE ANALYZER NRG Complete blood count (CBC) with automated white [...] plasma albumin measurement (mass/volume) 4.7 g/dL 3.2-4.5 Complete blood count (CBC) with automated white blood cell (WBC) differential - 11/29/17 00:45 Blood leukocytes automated count (number/volume) 10.8 10*3/uL 4.3-11.0 Blood erythrocytes automated count (number/volume) 4.60 10*6/uL 4.35-5.85 Venous blood hemoglobin measurement (mass/volume) 14.4 g/dL 13.3-17.7 Blood hematocrit (volume fraction) 41 % 40-54 Automated erythrocyte mean corpuscular volume 88 [foz_us] 80-99 Automated erythrocyte mean corpuscular hemoglobin (mass per erythrocyte) 31 pg 25-34 Automated erythrocyte mean corpuscular hemoglobin concentration measurement ( mass/volume) 36 g/dL 32-36 Automated erythrocyte distribution width ratio 14.8 % 10.0-14.5 Automated blood platelet count (count/volume) 251 10*3/uL 130-400 Automated blood platelet mean volume measurement 11.8 [foz_us] 7.4-10.4 Automated blood neutrophils/100 leukocytes 56 % 42-75 Automated blood lymphocytes/100 leukocytes 31 % 12-44 Blood monocytes/100 leukocytes 6 % 0-12 Automated blood eosinophils/100 leukocytes 7 % 0-10 Automated blood basophils/100 leukocytes 1 % 0-10 Blood neutrophils automated count (number/volume) 6.0 10*3 1.8-7.8 Blood lymphocytes automated count (number/volume) 3.3 10*3 1.0-4.0 Blood monocytes automated count (number/volume) 0.7 10*3 0.0-1.0 Automated eosinophil count 0.8 10*3/uL 0.0-0.3 Automated blood basophil count (count/volume) 0.1 10*3/uL 0.0-0.1 Comprehensive metabolic panel - 11/29/17 00:45 Serum or plasma sodium measurement (moles/volume) 143 mmol/L 135-145 Serum or plasma potassium measurement (moles/volume) 3.6 mmol/L 3.6-5.0 Serum or plasma chloride measurement (moles/volume) 106 mmol/L 98-107 Carbon dioxide 26 mmol/L 21-32 Serum or plasma anion gap determination (moles/volume) 11 mmol/L 5-14 Serum or plasma urea nitrogen measurement (mass/volume) 12 mg/dL 7-18 Serum or plasma creatinine measurement (mass/volume) 1.12 mg/dL 0.60-1.30 Serum or plasma urea nitrogen/creatinine mass ratio 11 NRG Serum or plasma creatinine measurement with calculation of estimated glomerular filtration rate > NRG Serum or plasma glucose measurement (mass/volume) 111 mg/dL 70-105 Serum or plasma calcium measurement (mass/volume) 9.4 mg/dL 8.5-10.1 Serum or plasma total bilirubin measurement (mass/volume) 0.5 mg/dL 0.1-1.0 Serum or plasma alkaline phosphatase measurement (enzymatic activity/volume) 75 U/L 40-136 Serum or plasma aspartate aminotransferase measurement (enzymatic activity/ volume) 24 U/L 5-34 Serum or plasma alanine aminotransferase measurement (enzymatic activity/volume ) 20 U/L 0-55 Serum or plasma protein measurement (mass/volume) 7.0 g/dL 6.4-8.2 Serum or plasma albumin measurement (mass/volume) 4.6 g/dL 3.2-4.5 Lipase - 11/29/17 00:45 Lipase 26 U/L 8-78 Serum or plasma ethanol measurement (mass/volume) - 11/29/17 00:45 Serum or plasma ethanol measurement (mass/volume) < mg/dL <10 Complete urinalysis with reflex to culture - 11/29/17 02:44 Urine color determination WEST NRG Urine clarity determination CLEAR NRG Urine pH measurement by test strip 6 5-9 Specific gravity of urine by test strip 1.020 1.016- 1.022 Urine protein assay by test [...] urobilinogen measurement by automated test strip (mass/volume) 4 mg/dL NORMAL Urine leukocyte esterase detection by dipstick 1+ NEGATIVE Automated urine sediment erythrocyte count by microscopy (number/high power field) NONE NRG Automated urine sediment leukocyte count by microscopy (number/high power field ) NONE NRG Bacteria detection in urine sediment by light microscopy NEGATIVE NRG Squamous epithelial cells detection in urine sediment by light microscopy 0-2 NRG Crystals detection in urine sediment by light microscopy NONE NRG Casts detection in urine sediment by light microscopy NONE NRG Mucus detection in urine sediment by light microscopy LARGE NRG Complete urinalysis with reflex to culture NO NRG Urine drug screening test - 11/29/17 02:44 Urine phencyclidine detection by screening method NEGATIVE NEGATIVE Urine benzodiazepines detection by screening method POSITIVE NEGATIVE Urine cocaine detection NEGATIVE NEGATIVE Urine amphetamines detection by screening method NEGATIVE NEGATIVE Urine methamphetamine detection by screening method NEGATIVE NEGATIVE Urine cannabinoids detection by screening method NEGATIVE NEGATIVE Urine opiates detection by screening method POSITIVE NEGATIVE Urine barbiturates detection NEGATIVE NEGATIVE Screening urine tricyclic antidepressants detection NEGATIVE NEGATIVE Urine methadone detection by screening method NEGATIVE NEGATIVE Urine oxycodone detection NEGATIVE NEGATIVE Urine propoxyphene detection NEGATIVE NEGATIVE Encounters ACCT No. Visit Date/Time Discharge Status Pt. Type Provider Facility Loc./Unit Complaint [id number] 06/22/2018 08:33:00 06/22/2018 23:59:59 CLS Outpatient MATEUSZ WHITNEY MD [facility] ONC [id number] 12/21/2017 13:27:00 03/21/2018 00:01:00 DIS Outpatient MATEUSZ WHITNEY MD [facility] ONC [id number] 11/29/2017 04:52:00 11/30/2017 17:25:00 DIS Inpatient BROOKE LOPES, CHERYL Callahan [facility] 4TH ACUTE ABDOMINAL PAIN [id number] 11/10/2017 08:39:00 11/10/2017 23:59:59 CLS Outpatient ANIYA LOPES, CHANTELLE Jorge [facility] CATH ABNORMAL STRESS TEST,CP, HTN,FATIGUE [id number] 09/28/2017 13:15:00 10/04/2017 00:01:00 DIS Outpatient MATEUSZ WHITNEY MD [facility] ONC [id number] 09/11/2017 13:55:00 09/11/2017 16:03:00 DIS Emergency MAY LOPES, EDMUNDO [place] [facility] ER L EYE IRRITATION [id number] 09/06/2017 17:23:00 09/06/2017 23:59:59 CLS Outpatient MARISEL NASH RUBBER CURER-Johnson [facility] LAB NAUSEA AND VOMITING; TNTRACTABILITY OF VOMITING [id number] 04/06/2017 13:06:00 07/05/2017 00:01:00 DIS Outpatient MATEUSZ WHITNEY MD [facility] ONC [id number] 04/06/2017 14:18:00 04/06/2017 23:59:59 CLS Outpatient LEA LOPES, RON Fuentes [facility] RAD TRANSIENT PARALYSIS OF LIMB [id number] 01/05/2017 11:18:00 04/05/2017 00:01:00 DIS Outpatient MATEUSZ WHITNEY MD [facility] ONC [id number] 03/17/2017 10:15:00 03/17/2017 23:59:59 CLS Preadmit RON TATE MD [facility] RAD NEUROLOGICAL DEFICIT PRESENT [id number] 11/13/2016 08:42:00 12/19/2016 00:01:00 DIS Outpatient MATEUSZ WHITNEY MD [facility] ONC [id number] 11/13/2016 08:12:00 11/13/2016 23:59:59 CLS Outpatient RON TATE MD [facility] RAD NUMBNESS AND TINGLING [id number] 11/10/2016 13:05:00 11/10/2016 23:59:59 CLS Preadmit RON TATE MD [facility] RAD RADICULOPATHY OF CERVICOTHORACIC REGION [id number] 10/13/2016 13:14:00 11/02/2016 00:01:00 DIS Outpatient MATEUSZ WHITNEY MD [facility] ONC [id number] 09/22/2016 11:40:00 09/22/2016 15:39:00 DIS Emergency MAY LOPES, EDMUNDO [place] [facility] ER ABD PAIN [id number] 06/30/2016 10:18:00 07/06/2016 00:01:00 DIS Outpatient MATEUSZ WHITNEY MD [facility] ONC [id number] 02/18/2016 10:34:00 04/01/2016 00:01:00 DIS Outpatient MATEUSZ WHITNEY MD [facility] ONC [id number] 12/18/2015 14:46:00 12/30/2015 08:31:00 DIS Outpatient MATEUSZ WHITNEY MD [facility] ONC [id number] 11/14/2015 07:19:00 11/14/2015 23:59:59 CLS Outpatient MATEUSZ WHITNEY MD [facility] RAD CML [id number] 10/18/2015 08:46:00 10/18/2015 23:59:59 CLS Outpatient RON TATE MD [facility] RAD PAIN [id number] 10/16/2015 12:18:00 10/16/2015 23:59:59 CLS Outpatient RON TATE MD [facility] LAB [id number] 10/02/2015 08:56:00 10/02/2015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
[2018-06-25] MEDS ORDERED: TOBRAMYCIN (TOBREX) 0.3% OP OINT 3.5 GM TUBE OU SCH (21:00)
== END 2018-06-25 19:01 | disposition home or self-care (01) ==
LOC: EDUNIT# 17:42 → ER 17:43
DX: T15.02XA Foreign body in cornea, left eye, initial encounter (principal); G47.30 Sleep apnea, unspecified; I25.10 Atherosclerotic heart disease of native coronary artery without angina pectoris; I10 Essential (primary) hypertension; K21.9 Gastro-esophageal reflux disease without esophagitis; F41.9 Anxiety disorder, unspecified; G62.9 Polyneuropathy, unspecified; M79.7 Fibromyalgia; Z85.6 Personal history of leukemia; Z93.3 Colostomy status; Z91.5 Personal history of self-harm; Z88.0 Allergy status to penicillin; Z88.8 Allergy status to other drugs, medicaments and biological substances; Z87.891 Personal history of nicotine dependence; Z90.49 Acquired absence of other specified parts of digestive tract
CPT/HCPCS: 99283

== ENCOUNTER 2018-07-26 13:15 | Outpatient (RCR) | payer MEDICARE, OTHER ==
[~2018-07-26 13:15] MED LIST changes: -OMEP20CA12 PO; +OMEP20CA13 PO
[2018-07-26 13:23] LABS: BASOPHILS % (AUTO) 0 % (0-10); EOSINOPHILS # (AUTO) 0.3 10^3/uL (0.0-0.3); EOSINOPHILS % (AUTO) 4 % (0-10); HEMATOCRIT 42 % (40-54); HEMOGLOBIN 14.5 G/DL (13.3-17.7); LYMPHOCYTES # (AUTO) 1.9 X 10^3 (1.0-4.0); LYMPHOCYTES % (AUTO) 28 % (12-44); MEAN CORPUSCULAR HEMOGLOBIN 32 PG (25-34); MEAN CORPUSCULAR HGB CONC 35 G/DL (32-36); MEAN CORPUSCULAR VOLUME 92 FL (80-99); MEAN PLATELET VOLUME 10.6 FL (7.4-10.4); MONOCYTES # (AUTO) 0.4 X 10^3 (0.0-1.0); MONOCYTES % (AUTO) 6 % (0-12); NEUTROPHILS # (AUTO) 4.1 X 10^3 (1.8-7.8); NEUTROPHILS % (AUTO) 61 % (42-75); PLATELET COUNT 236 10^3/uL (130-400); RED CELL DISTRIBUTION WIDTH 13.7 % (10.0-14.5); WHITE BLOOD COUNT 6.7 10^3/uL (4.3-11.0)
[2018-07-26 13:45] LABS: ALANINE AMINOTRANSFERASE 17 U/L (0-55); ALBUMIN 4.7 GM/DL (3.2-4.5); ALKALINE PHOSPHATASE 73 U/L (40-136); BILIRUBIN,TOTAL 0.4 MG/DL (0.1-1.0); BUN/CREATININE RATIO 16; CALCIUM 9.5 MG/DL (8.5-10.1); CARBON DIOXIDE 30 MMOL/L (21-32); CHLORIDE 104 MMOL/L (98-107); CREATININE SERUM 0.97 MG/DL (0.60-1.30); GFR ESTIMATED > 60; GLUCOSE 94 MG/DL (70-105); POTASSIUM 3.8 MMOL/L (3.6-5.0); SODIUM 141 MMOL/L (135-145)
== END 2018-10-24 | disposition home or self-care (01) ==
LOC: ONC 13:15
PROVIDERS: ATTEND Internal Medicine Hematology & Oncology
DX: C92.10 Chronic myeloid leukemia, BCR/ABL-positive, not having achieved remission (principal); D64.9 Anemia, unspecified; K76.9 Liver disease, unspecified; F32.9 Major depressive disorder, single episode, unspecified; F41.9 Anxiety disorder, unspecified; G62.9 Polyneuropathy, unspecified; R42 Dizziness and giddiness; Z87.891 Personal history of nicotine dependence; Z79.899 Other long term (current) drug therapy
CPT/HCPCS: 36415; 80053; 85025; 99213

== ENCOUNTER 2018-10-13 08:47 | Emergency (ER) | payer MEDICARE, OTHER ==
[~2018-10-13] VITALS: Ht 165.1 cm; Wt 77.1 kg
[~2018-10-13 08:47] MED LIST changes: +OMEP20CA12 PO; -OMEP20CA13 PO
--- OUTSIDE RECORDS SUMMARY | 2018-10-13 08:54 | XMS REPORT | Clinical Summary ---
Author Author [facility] Organization [facility] Address Unknown Phone Unavailable Care Team Providers Care Electric Organ Inspector And Repairer Name Role Phone PCP Unavailable Allergies Not on File Medications Not on file Active Problems Not on file Social History Date Tobacco Use Types Packs/Day Years Used Never Assessed Sex Assigned at Date Recorded Not on file Industry Job Start Date Occupation Not on file Not on file Not on file Travel End Travel History Travel Start No recent travel history available. Last Filed Vital Signs Not on file Plan of Treatment Not on file Results Not on filefrom Last 3 Months
--- OUTSIDE RECORDS SUMMARY | 2018-10-13 08:54 | XMS REPORT | Encounter Summary ---
Author Author [facility] Organization [facility] Address Unknown Phone Unavailable Care Team Providers Care Energy Management Specialist Name Role Phone PCP Unavailable Encounter Details Care Team Description Date Type Department Puma Reese MD [address] [facility] [address] [place] [address] [phone] 04/27/2012 [facility] Encounter [address] [place] [address] Social History Date Tobacco Use Types Packs/Day Years Used Never Assessed Sex Assigned at Date Recorded Not on file Industry Job Start Date Occupation Not on file Not on file Not on file Travel End Travel History Travel Start No recent travel history available. documented as of this encounter Plan of Treatment Not on filedocumented as of this encounter Procedures Comments Procedure Name Priority Date/Time Associated Diagnosis VITAMIN D, 25-HYDROXY Routine 04/27/2012 1:13 PM [facility] PROTEIN ELECTROPHORESIS Routine 04/27/2012 SERUM 1:13 PM [employer] [employer] LACTATE DEHYDROGENASE Routine 04/27/2012 1:13 PM [employer] [employer] ALDOLASE Routine 04/27/2012 1:13 PM [facility] [employer] ACUTE HEPATITIS PANEL Routine 04/27/2012 1:13 PM [facility] [employer] documented in this encounter Results * Acute Hepatitis Panel (04/27/2012 1:13 PM [facility] [employer]) Hepatitis B Non-reactive Non-reactive [facility] Surface Ag Hepatitis B Non-reactive Non-reactive [facility] Core Ab IgM Hepatitis A Ab Non-reactive Non-reactive [facility] IgM Hepatitis C Ab Non-reactive Non-reactive [facility] Specimen Blood Performing Organization Address City/State/Zipcode Phone Number [facility] [address] [place] [address] [facility] * Lactate Dehydrogenase (04/27/2012 1:13 PM [facility] [employer]) Lactate 625 (H) 313 - 618 IU/L [facility] Dehydrogenase Specimen Blood Performing Organization Address [facility] Phone Number [facility] [address] [place] [address] [facility] * Vitamin D, 25-Hydroxy (04/27/2012 1:13 PM [facility] [employer]) Vitamin D 22 NG/ML [facility] 25-Hydroxy Comment: Vitamin D 25-Hydroxy: Severe deficiency < 13 ng/mL Mild to moderate [id number] - 24ng/mL Optimum level 25 - 80ng/mL Toxicity possible >80 ng/mL Specimen Blood Performing Organization Address [facility] Phone Number [address] [place] [address] [facility] * Aldolase (04/27/2012 1:13 PM [facility] [employer]) Aldolase 7.1 <7.7 U/L [facility] Comment: Test Performed by: [place] [address] Manager Pediatric: Anthony Valdez III, M.D. Specimen Blood Performing Organization Address [facility] Phone Number [facility] [address] [place] [address] [facility] * Protein Electrophoresis Serum (04/27/2012 1:13 PM [facility] [employer]) Protein Total 7.3 6.0 - 8.2 G/DL [facility] SPE Albumin 4.0Comment: Normal protein 3.5 - 5.0 G/DL [facility] electrophoresis pattern. Alpha 1 0.2 0.1 - 0.4 G/DL [facility] Alpha 2 1.3 0.4 - 1.3 G/DL [facility] Beta 1.0 0.6 - 1.3 G/DL [facility] Gamma 0.8 0.6 - 1.5 G/DL [facility] A/G Ratio 1.2 [facility] Pathologist Reviewed by Carmelo Bojorquez, [facility] Review Rosita,Comment: Reviewed by Carmelo Bojorquez M.D.,Ph.D. Specimen Blood Performing Organization Address [facility] Phone Number [facility] [address] [place] [address] [facility] documented in this encounter Visit Diagnoses Not on filedocumented in this encounter
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
[2018-10-13 09:22] LABS: BASOPHILS % (AUTO) 0 % (0-10); EOSINOPHILS # (AUTO) 0.5 10^3/uL (0.0-0.3); EOSINOPHILS % (AUTO) 8 % (0-10); HEMATOCRIT 37 % (40-54); HEMOGLOBIN 12.7 G/DL (13.3-17.7); LYMPHOCYTES # (AUTO) 1.6 X 10^3 (1.0-4.0); LYMPHOCYTES % (AUTO) 30 % (12-44); MEAN CORPUSCULAR HEMOGLOBIN 32 PG (25-34); MEAN CORPUSCULAR HGB CONC 34 G/DL (32-36); MEAN CORPUSCULAR VOLUME 93 FL (80-99); MEAN PLATELET VOLUME 11.1 FL (7.4-10.4); MONOCYTES # (AUTO) 0.3 X 10^3 (0.0-1.0); MONOCYTES % (AUTO) 6 % (0-12); NEUTROPHILS % (AUTO) 55 % (42-75); PLATELET COUNT 191 10^3/uL (130-400); RED CELL DISTRIBUTION WIDTH 13.6 % (10.0-14.5); WHITE BLOOD COUNT 5.4 10^3/uL (4.3-11.0)
[2018-10-13 09:36] LABS: BILIRUBIN,URINE NEGATIVE (NEGATIVE); CLARITY,URINE CLEAR; COLOR,URINE YELLOW; GLUCOSE, URINE (UA) NEGATIVE (NEGATIVE); KETONES,URINE NEGATIVE (NEGATIVE); LEUKOCYTE ESTERASE ,URINE NEGATIVE (NEGATIVE); NITRITE,URINE NEGATIVE (NEGATIVE); PH,URINE 6.5 (5-9); PROTEIN,URINE NEGATIVE (NEGATIVE); UROBILINOGEN,URINE NORMAL (NORMAL)
[2018-10-13 09:39] LABS: ALANINE AMINOTRANSFERASE 21 U/L (0-55); ALBUMIN 4.5 GM/DL (3.2-4.5); ALKALINE PHOSPHATASE 65 U/L (40-136); BILIRUBIN,TOTAL 0.5 MG/DL (0.1-1.0); BUN/CREATININE RATIO 10; CALCIUM 9.4 MG/DL (8.5-10.1); CARBON DIOXIDE 26 MMOL/L (21-32); CHLORIDE 105 MMOL/L (98-107); CREATININE SERUM 1.07 MG/DL (0.60-1.30); GFR ESTIMATED > 60; GLUCOSE 93 MG/DL (70-105); LIPASE 33 U/L (8-78); POTASSIUM 3.8 MMOL/L (3.6-5.0); SODIUM 140 MMOL/L (135-145); TOTAL PROTEIN 6.7 GM/DL (6.4-8.2)
[2018-10-13 09:43] LABS: BACTERIA,URINE NEGATIVE /HPF; SQUAMOUS EPITHELIAL CELL,UR RARE /HPF
[2018-10-13] MEDS ORDERED: NS IV 1000 ML 1,000 ML IV ONE (10:09)
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
[2018-10-13] MEDS ORDERED: IOHEXOL 350 MG/ML 100 ML (OMNIPAQUE 350) VIAL IV ONE (10:15)
[2018-10-13] MEDS ORDERED: NS 100 ML (IVPB) BAG IV ONE (10:15)
[2018-10-13] MEDS ORDERED: morphine INJ 10 MG/ML 1ML (SYR OR VIAL) IVP ONE (10:15)
[2018-10-13] MEDS ORDERED: HOLD METFORMIN - RECEIVED CONTRAST 20 ML VIAL IV SCH (10:15)
--- NOTE | 2018-10-13 11:25 | NUR ---
FLUIDS INFUSED PAIN BETTER/
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
[2018-10-13 12:45] VITALS: BP 145/95
== END 2018-10-13 12:45 | disposition home or self-care (01) ==
LOC: EDUNIT# 08:47 → ER 08:48
DX: R10.84 Generalized abdominal pain (principal); I10 Essential (primary) hypertension; I25.10 Atherosclerotic heart disease of native coronary artery without angina pectoris; F41.9 Anxiety disorder, unspecified; G62.9 Polyneuropathy, unspecified; G47.30 Sleep apnea, unspecified; K21.9 Gastro-esophageal reflux disease without esophagitis; M79.7 Fibromyalgia; Z87.828 Personal history of other (healed) physical injury and trauma; Z85.6 Personal history of leukemia; Z98.890 Other specified postprocedural states; Z88.0 Allergy status to penicillin; Z88.5 Allergy status to narcotic agent; Z88.8 Allergy status to other drugs, medicaments and biological substances; Z87.891 Personal history of nicotine dependence; Z91.5 Personal history of self-harm; Z80.0 Family history of malignant neoplasm of digestive organs
CPT/HCPCS: 36415; 74177; 80053; 81000; 83690; 85025; 86141

== ENCOUNTER 2018-11-24 13:47 | Outpatient (RCR) | payer MEDICARE, OTHER ==
[2018-10-25 13:35] LABS: BASOPHILS % (AUTO) 1 % (0-10); EOSINOPHILS # (AUTO) 0.5 10^3/uL (0.0-0.3); EOSINOPHILS % (AUTO) 9 % (0-10); HEMATOCRIT 36 % (40-54); HEMOGLOBIN 12.5 G/DL (13.3-17.7); LYMPHOCYTES # (AUTO) 1.5 X 10^3 (1.0-4.0); LYMPHOCYTES % (AUTO) 27 % (12-44); MEAN CORPUSCULAR HEMOGLOBIN 33 PG (25-34); MEAN CORPUSCULAR HGB CONC 35 G/DL (32-36); MEAN CORPUSCULAR VOLUME 92 FL (80-99); MONOCYTES # (AUTO) 0.3 X 10^3 (0.0-1.0); MONOCYTES % (AUTO) 5 % (0-12); NEUTROPHILS # (AUTO) 3.2 X 10^3 (1.8-7.8); NEUTROPHILS % (AUTO) 59 % (42-75); PLATELET COUNT 171 10^3/uL (130-400); RED CELL DISTRIBUTION WIDTH 13.4 % (10.0-14.5); WHITE BLOOD COUNT 5.4 10^3/uL (4.3-11.0)
[2018-10-25 14:08] LABS: ALANINE AMINOTRANSFERASE 17 U/L (0-55); ALBUMIN 4.5 GM/DL (3.2-4.5); ALKALINE PHOSPHATASE 78 U/L (40-136); BILIRUBIN,TOTAL 0.4 MG/DL (0.1-1.0); BUN/CREATININE RATIO 13; CALCIUM 9.5 MG/DL (8.5-10.1); CARBON DIOXIDE 24 MMOL/L (21-32); CHLORIDE 108 MMOL/L (98-107); CREATININE SERUM 1.03 MG/DL (0.60-1.30); GFR ESTIMATED > 60; GLUCOSE 90 MG/DL (70-105); POTASSIUM 3.6 MMOL/L (3.6-5.0); SODIUM 142 MMOL/L (135-145); TOTAL PROTEIN 6.7 GM/DL (6.4-8.2)
[~2018-11-24 13:47] MED LIST changes: -OMEP20CA12 PO; +OMEP20CA13 PO
[2018-11-24 14:13] LABS: BASOPHILS % (AUTO) 1 % (0-10); EOSINOPHILS # (AUTO) 0.5 10^3/uL (0.0-0.3); EOSINOPHILS % (AUTO) 10 % (0-10); HEMATOCRIT 39 % (40-54); HEMOGLOBIN 13.7 G/DL (13.3-17.7); LYMPHOCYTES # (AUTO) 1.9 X 10^3 (1.0-4.0); LYMPHOCYTES % (AUTO) 37 % (12-44); MEAN CORPUSCULAR HEMOGLOBIN 33 PG (25-34); MEAN CORPUSCULAR HGB CONC 36 G/DL (32-36); MEAN CORPUSCULAR VOLUME 92 FL (80-99); MEAN PLATELET VOLUME 11.2 FL (7.4-10.4); MONOCYTES # (AUTO) 0.4 X 10^3 (0.0-1.0); MONOCYTES % (AUTO) 7 % (0-12); NEUTROPHILS # (AUTO) 2.4 X 10^3 (1.8-7.8); NEUTROPHILS % (AUTO) 46 % (42-75); PLATELET COUNT 194 10^3/uL (130-400); RED CELL DISTRIBUTION WIDTH 13.3 % (10.0-14.5); WHITE BLOOD COUNT 5.3 10^3/uL (4.3-11.0)
[2018-11-24 14:38] LABS: ALANINE AMINOTRANSFERASE 28 U/L (0-55); ALBUMIN 4.3 GM/DL (3.2-4.5); ALKALINE PHOSPHATASE 75 U/L (40-136); BILIRUBIN,TOTAL 0.3 MG/DL (0.1-1.0); BUN/CREATININE RATIO 13; CALCIUM 8.8 MG/DL (8.5-10.1); CARBON DIOXIDE 26 MMOL/L (21-32); CHLORIDE 107 MMOL/L (98-107); CREATININE SERUM 0.95 MG/DL (0.60-1.30); GFR ESTIMATED > 60; GLUCOSE 107 MG/DL (70-105); POTASSIUM 4.1 MMOL/L (3.6-5.0); SODIUM 140 MMOL/L (135-145); TOTAL PROTEIN 6.6 GM/DL (6.4-8.2)
== END 2019-01-23 | disposition home or self-care (01) ==
LOC: ONC 13:47
PROVIDERS: ATTEND Internal Medicine Hematology & Oncology
DX: C92.10 Chronic myeloid leukemia, BCR/ABL-positive, not having achieved remission (principal); D64.9 Anemia, unspecified; K76.9 Liver disease, unspecified; F32.9 Major depressive disorder, single episode, unspecified; F41.9 Anxiety disorder, unspecified; G62.9 Polyneuropathy, unspecified; R42 Dizziness and giddiness; Z87.891 Personal history of nicotine dependence; Z79.899 Other long term (current) drug therapy
CPT/HCPCS: 36415; 80053; 82728; 83540; 84443; 85025; 99213

== ENCOUNTER → 2019-01-20 | Outpatient (CLI) | payer MEDICARE, OTHER ==
[~2019-01-20] MED LIST changes: +OMEP-280 PO; -OMEP20CA13 PO
[2019-01-20 09:51] LABS: ALANINE AMINOTRANSFERASE 35 U/L (0-55); ALBUMIN 4.3 GM/DL (3.2-4.5); ALKALINE PHOSPHATASE 85 U/L (40-136); BILIRUBIN,TOTAL 0.3 MG/DL (0.1-1.0); BUN/CREATININE RATIO 12; CALCIUM 9.1 MG/DL (8.5-10.1); CARBON DIOXIDE 20 MMOL/L (21-32); CHLORIDE 106 MMOL/L (98-107); CHOLESTEROL 167 MG/DL (< 200); GFR ESTIMATED > 60; GLUCOSE 104 MG/DL (70-105); HDL CHOLESTEROL 23 MG/DL (40-60); SODIUM 139 MMOL/L (135-145); TOTAL PROTEIN 6.7 GM/DL (6.4-8.2); TRIGLYCERIDES 651 MG/DL (<150)
== END ==
LOC: LAB 09:17
PROVIDERS: ATTEND Physician Assistant
DX: G89.4 Chronic pain syndrome (principal); M79.7 Fibromyalgia; I10 Essential (primary) hypertension; R07.89 Other chest pain
CPT/HCPCS: 36415; 80053; 80061

== ENCOUNTER 2019-05-18 13:25 | Outpatient (RCR) | payer MEDICARE, OTHER ==
[2019-02-23 13:23] LABS: BASOPHILS % (AUTO) 1 % (0-10); EOSINOPHILS # (AUTO) 0.3 10^3/uL (0.0-0.3); EOSINOPHILS % (AUTO) 6 % (0-10); HEMATOCRIT 38 % (40-54); HEMOGLOBIN 13.3 G/DL (13.3-17.7); LYMPHOCYTES # (AUTO) 1.9 X 10^3 (1.0-4.0); LYMPHOCYTES % (AUTO) 35 % (12-44); MEAN CORPUSCULAR HEMOGLOBIN 32 PG (25-34); MEAN CORPUSCULAR HGB CONC 35 G/DL (32-36); MEAN CORPUSCULAR VOLUME 91 FL (80-99); MONOCYTES # (AUTO) 0.3 X 10^3 (0.0-1.0); MONOCYTES % (AUTO) 5 % (0-12); NEUTROPHILS # (AUTO) 2.8 X 10^3 (1.8-7.8); NEUTROPHILS % (AUTO) 53 % (42-75); PLATELET COUNT 192 10^3/uL (130-400); RED CELL DISTRIBUTION WIDTH 13.3 % (10.0-14.5); WHITE BLOOD COUNT 5.3 10^3/uL (4.3-11.0)
[2019-02-23 13:39] LABS: ALANINE AMINOTRANSFERASE 35 U/L (0-55); ALBUMIN 4.8 GM/DL (3.2-4.5); ALKALINE PHOSPHATASE 70 U/L (40-136); BILIRUBIN,TOTAL 0.5 MG/DL (0.1-1.0); BUN/CREATININE RATIO 9; CALCIUM 9.5 MG/DL (8.5-10.1); CARBON DIOXIDE 26 MMOL/L (21-32); CHLORIDE 106 MMOL/L (98-107); CREATININE SERUM 1.07 MG/DL (0.60-1.30); GFR ESTIMATED > 60; GLUCOSE 97 MG/DL (70-105); POTASSIUM 3.8 MMOL/L (3.6-5.0); SODIUM 143 MMOL/L (135-145); TOTAL PROTEIN 7.1 GM/DL (6.4-8.2)
[~2019-05-18 13:25] MED LIST changes: -OMEP-280 PO; +OMEP20CA18 PO; +ONDA-105 PO; -ONDA4TAB10 PO
[2019-05-18 13:47] LABS: BASOPHILS % (AUTO) 1 % (0-10); EOSINOPHILS # (AUTO) 0.3 10^3/uL (0.0-0.3); EOSINOPHILS % (AUTO) 6 % (0-10); HEMATOCRIT 38 % (40-54); HEMOGLOBIN 13.1 G/DL (13.3-17.7); LYMPHOCYTES # (AUTO) 1.7 X 10^3 (1.0-4.0); LYMPHOCYTES % (AUTO) 36 % (12-44); MEAN CORPUSCULAR HEMOGLOBIN 32 PG (25-34); MEAN CORPUSCULAR HGB CONC 35 G/DL (32-36); MEAN CORPUSCULAR VOLUME 92 FL (80-99); MEAN PLATELET VOLUME 11.1 FL (7.4-10.4); MONOCYTES # (AUTO) 0.3 X 10^3 (0.0-1.0); MONOCYTES % (AUTO) 5 % (0-12); NEUTROPHILS # (AUTO) 2.6 X 10^3 (1.8-7.8); NEUTROPHILS % (AUTO) 53 % (42-75); PLATELET COUNT 181 10^3/uL (130-400); RED CELL DISTRIBUTION WIDTH 13.8 % (10.0-14.5); WHITE BLOOD COUNT 4.9 10^3/uL (4.3-11.0)
[2019-05-18 14:06] LABS: ALANINE AMINOTRANSFERASE 49 U/L (0-55); ALBUMIN 4.6 GM/DL (3.2-4.5); ALKALINE PHOSPHATASE 72 U/L (40-136); BILIRUBIN,TOTAL 0.5 MG/DL (0.1-1.0); BUN/CREATININE RATIO 10; CALCIUM 9.1 MG/DL (8.5-10.1); CARBON DIOXIDE 28 MMOL/L (21-32); CHLORIDE 105 MMOL/L (98-107); CREATININE SERUM 1.06 MG/DL (0.60-1.30); GFR ESTIMATED > 60; GLUCOSE 96 MG/DL (70-105); POTASSIUM 3.8 MMOL/L (3.6-5.0); SODIUM 140 MMOL/L (135-145); TOTAL PROTEIN 6.9 GM/DL (6.4-8.2)
== END 2019-05-24 | disposition home or self-care (01) ==
LOC: ONC 13:25
PROVIDERS: ATTEND Internal Medicine Hematology & Oncology
DX: C92.10 Chronic myeloid leukemia, BCR/ABL-positive, not having achieved remission (principal); D64.89 Other specified anemias; K76.9 Liver disease, unspecified; F32.9 Major depressive disorder, single episode, unspecified; F41.9 Anxiety disorder, unspecified; G62.9 Polyneuropathy, unspecified; D63.0 Anemia in neoplastic disease; S31.109A Unspecified open wound of abdominal wall, unspecified quadrant without penetration into peritoneal cavity, initial encounter; F10.10 Alcohol abuse, uncomplicated; Z87.891 Personal history of nicotine dependence; Z79.899 Other long term (current) drug therapy; Z80.9 Family history of malignant neoplasm, unspecified; Z98.890 Other specified postprocedural states
CPT/HCPCS: 80053; 85025; 99213

== ENCOUNTER → 2019-06-12 | Outpatient (CLI) | payer MEDICARE, OTHER ==
--- NOTE | 2019-06-12 10:43 | Diagnostic Imaging Report ---
INDICATION: Lump and pain in the right retroareolar region. TECHNIQUE: Sonographic interrogation of both the right and left retroareolar regions was performed. FINDINGS: There is some hypoechogenicity in the retroareolar right breast measuring 13 mm x 13 mm x 14 mm. This may represent an area of gynecomastia but correlation with diagnostic mammography would be recommended. The left retroareolar region is unremarkable. IMPRESSION: There is some ill-defined hypoechogenicity in the retroareolar right breast. While this most likely represents gynecomastia, underlying breast mass cannot be entirely excluded and further evaluation with diagnostic mammography is recommended. ACR BI-RADS Category 0: Incomplete. (Needs additional imaging evaluation). Dictated by: Dictated on workstation # [id number]
== END ==
LOC: RAD 08:58
PROVIDERS: ATTEND Internal Medicine
DX: N63.10 Unspecified lump in the right breast, unspecified quadrant (principal)
CPT/HCPCS: 76641

== ENCOUNTER → 2019-06-22 | Outpatient (CLI) | payer MEDICARE, OTHER ==
--- NOTE | 2019-06-22 10:23 | Diagnostic Imaging Report ---
INDICATION: Right breast lump. CORRELATION is made with recent breast ultrasound from 06/12/2019. 2-D and 3-D bilateral diagnostic mammography was performed. There is mild density in the retroareolar right breast and minimal density in the retroareolar left breast. This appears to show normal dispersion and is most consistent with fibroglandular tissue. No discrete mass is identified. No suspicious microcalcifications are seen. Axillae are unremarkable. IMPRESSION: BI-RADS Category 2. Findings consistent with bilateral gynecomastia, greater on the right. ACR BI-RADS Category 2: Benign findings. Result letter will be mailed to the patient. Note: At least 10% of breast cancer is not imaged by mammography. Dictated by: Dictated on workstation # [id number]
== END ==
LOC: RAD 09:41
PROVIDERS: ATTEND Internal Medicine
DX: N63.10 Unspecified lump in the right breast, unspecified quadrant (principal)

== ENCOUNTER 2019-11-02 12:58 | Outpatient (RCR) | payer MEDICARE, OTHER ==
[2019-08-10 13:38] LABS: BASOPHILS % (AUTO) 1 % (0-10); EOSINOPHILS # (AUTO) 0.3 10^3/uL (0.0-0.3); EOSINOPHILS % (AUTO) 7 % (0-10); HEMATOCRIT 37 % (40-54); HEMOGLOBIN 13.1 G/DL (13.3-17.7); LYMPHOCYTES # (AUTO) 1.6 X 10^3 (1.0-4.0); LYMPHOCYTES % (AUTO) 35 % (12-44); MEAN CORPUSCULAR HEMOGLOBIN 33 PG (25-34); MEAN CORPUSCULAR HGB CONC 36 G/DL (32-36); MEAN CORPUSCULAR VOLUME 93 FL (80-99); MONOCYTES # (AUTO) 0.3 X 10^3 (0.0-1.0); MONOCYTES % (AUTO) 6 % (0-12); NEUTROPHILS # (AUTO) 2.4 X 10^3 (1.8-7.8); NEUTROPHILS % (AUTO) 52 % (42-75); PLATELET COUNT 184 10^3/uL (130-400); RED CELL DISTRIBUTION WIDTH 13.4 % (10.0-14.5); WHITE BLOOD COUNT 4.7 10^3/uL (4.3-11.0)
[2019-08-10 13:51] LABS: ALANINE AMINOTRANSFERASE 47 U/L (0-55); ALBUMIN 4.5 GM/DL (3.2-4.5); ALKALINE PHOSPHATASE 81 U/L (40-136); BILIRUBIN,TOTAL 0.4 MG/DL (0.1-1.0); BUN/CREATININE RATIO 12; CALCIUM 9.2 MG/DL (8.5-10.1); CARBON DIOXIDE 23 MMOL/L (21-32); CHLORIDE 107 MMOL/L (98-107); CREATININE SERUM 1.04 MG/DL (0.60-1.30); GFR ESTIMATED > 60; GLUCOSE 101 MG/DL (70-105); POTASSIUM 4.2 MMOL/L (3.6-5.0); SODIUM 140 MMOL/L (135-145)
[2019-11-02 13:19] LABS: BASOPHILS % (AUTO) 1 % (0-10); EOSINOPHILS # (AUTO) 0.3 10^3/uL (0.0-0.3); EOSINOPHILS % (AUTO) 6 % (0-10); HEMATOCRIT 36 % (40-54); HEMOGLOBIN 12.2 G/DL (13.3-17.7); LYMPHOCYTES # (AUTO) 1.5 X 10^3 (1.0-4.0); LYMPHOCYTES % (AUTO) 36 % (12-44); MEAN CORPUSCULAR HEMOGLOBIN 32 PG (25-34); MEAN CORPUSCULAR HGB CONC 34 G/DL (32-36); MEAN CORPUSCULAR VOLUME 95 FL (80-99); MEAN PLATELET VOLUME 10.9 FL (7.4-10.4); MONOCYTES # (AUTO) 0.2 X 10^3 (0.0-1.0); MONOCYTES % (AUTO) 6 % (0-12); NEUTROPHILS # (AUTO) 2.1 X 10^3 (1.8-7.8); NEUTROPHILS % (AUTO) 52 % (42-75); PLATELET COUNT 165 10^3/uL (130-400); RED CELL DISTRIBUTION WIDTH 13.5 % (10.0-14.5); WHITE BLOOD COUNT 4.2 10^3/uL (4.3-11.0)
[2019-11-02 13:44] LABS: ALANINE AMINOTRANSFERASE 31 U/L (0-55); ALBUMIN 4.1 GM/DL (3.2-4.5); ALKALINE PHOSPHATASE 65 U/L (40-136); BILIRUBIN,TOTAL 0.4 MG/DL (0.1-1.0); BUN/CREATININE RATIO 13; CALCIUM 8.5 MG/DL (8.5-10.1); CARBON DIOXIDE 24 MMOL/L (21-32); CHLORIDE 108 MMOL/L (98-107); CREATININE SERUM 1.12 MG/DL (0.60-1.30); GFR ESTIMATED > 60; GLUCOSE 96 MG/DL (70-105); SODIUM 139 MMOL/L (135-145); TOTAL PROTEIN 6.4 GM/DL (6.4-8.2)
== END 2019-11-09 | disposition home or self-care (01) ==
LOC: ONC 12:58
PROVIDERS: ATTEND Internal Medicine Hematology & Oncology
DX: C92.10 Chronic myeloid leukemia, BCR/ABL-positive, not having achieved remission (principal); S31.109A Unspecified open wound of abdominal wall, unspecified quadrant without penetration into peritoneal cavity, initial encounter; F10.11 Alcohol abuse, in remission; G62.9 Polyneuropathy, unspecified; D63.0 Anemia in neoplastic disease; Z86.59 Personal history of other mental and behavioral disorders; Z98.61 Coronary angioplasty status; Z93.3 Colostomy status; Z87.19 Personal history of other diseases of the digestive system
CPT/HCPCS: 80053; 85025; G0463; 99213

== ENCOUNTER → 2019-11-30 | Outpatient (CLI) | payer MEDICARE, OTHER ==
[2019-11-30 13:17] LABS: BASOPHILS % (AUTO) 1 % (0-10); EOSINOPHILS # (AUTO) 0.4 10^3/uL (0.0-0.3); EOSINOPHILS % (AUTO) 8 % (0-10); HEMATOCRIT 36 % (40-54); HEMOGLOBIN 12.3 G/DL (13.3-17.7); LYMPHOCYTES # (AUTO) 1.7 X 10^3 (1.0-4.0); LYMPHOCYTES % (AUTO) 37 % (12-44); MEAN CORPUSCULAR HEMOGLOBIN 33 PG (25-34); MEAN CORPUSCULAR HGB CONC 35 G/DL (32-36); MEAN CORPUSCULAR VOLUME 96 FL (80-99); MEAN PLATELET VOLUME 10.7 FL (7.4-10.4); MONOCYTES # (AUTO) 0.3 X 10^3 (0.0-1.0); MONOCYTES % (AUTO) 7 % (0-12); NEUTROPHILS # (AUTO) 2.3 X 10^3 (1.8-7.8); NEUTROPHILS % (AUTO) 48 % (42-75); PLATELET COUNT 179 10^3/uL (130-400); WHITE BLOOD COUNT 4.7 10^3/uL (4.3-11.0)
== END ==
LOC: EDSTATUS 11-10 14:57 → ONC 13:07
PROVIDERS: ATTEND Internal Medicine Hematology & Oncology
DX: C92.10 Chronic myeloid leukemia, BCR/ABL-positive, not having achieved remission (principal); D64.9 Anemia, unspecified
CPT/HCPCS: 85025

== ENCOUNTER → 2020-01-29 | Outpatient (CLI) | payer MEDICARE, OTHER ==
[~2020-01-29] MED LIST changes: -ENAL20TA PO; +ENAL20TA16 PO
[2020-01-29 10:22] LABS: BASOPHILS % (AUTO) 1 % (0-10); EOSINOPHILS # (AUTO) 0.3 10^3/uL (0.0-0.3); EOSINOPHILS % (AUTO) 8 % (0-10); HEMATOCRIT 36 % (40-54); HEMOGLOBIN 12.6 g/dL (13.3-17.7); LYMPHOCYTES # (AUTO) 1.2 10^3/uL (1.0-4.0); LYMPHOCYTES % (AUTO) 32 % (12-44); MEAN CORPUSCULAR HEMOGLOBIN 33 pg (25-34); MEAN CORPUSCULAR HGB CONC 35 g/dL (32-36); MEAN CORPUSCULAR VOLUME 95 fL (80-99); MEAN PLATELET VOLUME 10.9 fL (9.0-12.2); MONOCYTES # (AUTO) 0.2 10^3/uL (0.0-1.0); MONOCYTES % (AUTO) 5 % (0-12); NEUTROPHILS % (AUTO) 55 % (42-75); PLATELET COUNT 160 10^3/uL (130-400); WHITE BLOOD COUNT 3.7 10^3/uL (4.3-11.0)
[2020-01-29 10:40] LABS: ALANINE AMINOTRANSFERASE 20 U/L (0-55); ALBUMIN 4.1 GM/DL (3.2-4.5); ALKALINE PHOSPHATASE 72 U/L (40-136); BILIRUBIN,TOTAL 0.4 MG/DL (0.1-1.0); BUN/CREATININE RATIO 11; CALCIUM 8.8 MG/DL (8.5-10.1); CARBON DIOXIDE 25 MMOL/L (21-32); CHLORIDE 107 MMOL/L (98-107); CREATININE SERUM 1.04 MG/DL (0.60-1.30); GFR ESTIMATED > 60; GLUCOSE 95 MG/DL (70-105); SODIUM 141 MMOL/L (135-145); TOTAL PROTEIN 6.3 GM/DL (6.4-8.2)
== END ==
LOC: ONC 10:08
PROVIDERS: ATTEND Internal Medicine Hematology & Oncology
DX: C92.10 Chronic myeloid leukemia, BCR/ABL-positive, not having achieved remission (principal); D64.9 Anemia, unspecified
CPT/HCPCS: 80053; 85025

== ENCOUNTER → 2020-02-26 | Outpatient (CLI) | payer MEDICARE, OTHER ==
--- NOTE | 2020-02-26 12:50 | Diagnostic Imaging Report ---
INDICATION: LT ELBOW PAIN AND SWELLING. TECHNIQUE: 3 views of the left elbow. CORRELATION STUDY: None. FINDINGS: There is normal alignment of the osseous structures of the elbow. No acute fracture. There are very mild areas of degenerative osteophyte formation. A tiny calcified intra-articular loose body would be difficult to exclude. No abnormal joint effusion. IMPRESSION: Negative for acute bony abnormality of the elbow. Dictated by: Dictated on workstation # [id number]
== END ==
LOC: RAD 12:01
PROVIDERS: ATTEND Physician Assistant
DX: M25.422 Effusion, left elbow (principal)
CPT/HCPCS: 73080

== ENCOUNTER → 2020-02-29 | Outpatient (CLI) | payer MEDICARE, OTHER ==
[~2020-02-29] MED LIST changes: +HOLD METFORMIN - RECEIVED CONTRAST 20 ML VIAL IV SCH; +IOHEXOL 350 MG/ML 100 ML (OMNIPAQUE 350) VIAL IV ONE; +NS 100 ML (IVPB) BAG IV ONE
--- NOTE | 2020-02-29 15:22 | Diagnostic Imaging Report ---
PROCEDURE: CT left upper extremity with contrast. TECHNIQUE: Axial images were obtained through the left upper extremity after intravenous contrast and reformatted into coronal and sagittal oblique planes. Auto Exposure Controls were utilized during the CT exam to meet ALARA standards for radiation dose reduction. INDICATION: Left elbow pain and swelling for five weeks. COMPARISON: None available. FINDINGS: No appreciable elbow joint effusion. No fracture in the radial head or neck. No other fracture is seen around the elbow. No osteochondral lesion. Based on CT, the distal biceps and brachialis tendons are normal. Triceps tendon appears intact. No swelling in the olecranon region to suggest olecranon bursitis. No peripheral enhancing fluid collection that would suggest abscess. IMPRESSION: No soft tissue or osseous abnormality about the elbow by CT. Dictated by: Dictated on workstation # [id number]
== END ==
LOC: RAD 13:36
PROVIDERS: ATTEND Physician Assistant
DX: M25.522 Pain in left elbow (principal); R22.32 Localized swelling, mass and lump, left upper limb
CPT/HCPCS: 73201

== ENCOUNTER → 2020-03-08 | Outpatient (CLI) | payer MEDICARE, OTHER ==
[~2020-03-08] MED LIST changes: -HOLD METFORMIN - RECEIVED CONTRAST 20 ML VIAL IV SCH; -IOHEXOL 350 MG/ML 100 ML (OMNIPAQUE 350) VIAL IV ONE; -NS 100 ML (IVPB) BAG IV ONE
[2020-03-08 09:49] LABS: BASOPHILS % (AUTO) 1 % (0-10); EOSINOPHILS # (AUTO) 0.4 10^3/uL (0.0-0.3); EOSINOPHILS % (AUTO) 8 % (0-10); HEMATOCRIT 37 % (40-54); HEMOGLOBIN 12.7 g/dL (13.3-17.7); LYMPHOCYTES # (AUTO) 1.3 10^3/uL (1.0-4.0); LYMPHOCYTES % (AUTO) 25 % (12-44); MEAN CORPUSCULAR HEMOGLOBIN 32 pg (25-34); MEAN CORPUSCULAR HGB CONC 34 g/dL (32-36); MEAN CORPUSCULAR VOLUME 94 fL (80-99); MONOCYTES # (AUTO) 0.4 10^3/uL (0.0-1.0); MONOCYTES % (AUTO) 8 % (0-12); NEUTROPHILS # (AUTO) 2.9 10^3/uL (1.8-7.8); NEUTROPHILS % (AUTO) 58 % (42-75); PLATELET COUNT 172 10^3/uL (130-400)
[2020-03-08 10:11] LABS: ALANINE AMINOTRANSFERASE 21 U/L (0-55); ALBUMIN 4.2 GM/DL (3.2-4.5); ALKALINE PHOSPHATASE 66 U/L (40-136); BILIRUBIN,TOTAL 0.4 MG/DL (0.1-1.0); BUN/CREATININE RATIO 9; CALCIUM 8.7 MG/DL (8.5-10.1); CARBON DIOXIDE 25 MMOL/L (21-32); CHLORIDE 104 MMOL/L (98-107); CREATININE SERUM 1.07 MG/DL (0.60-1.30); GFR ESTIMATED > 60; GLUCOSE 94 MG/DL (70-105); POTASSIUM 4.2 MMOL/L (3.6-5.0); SODIUM 137 MMOL/L (135-145); TOTAL PROTEIN 6.4 GM/DL (6.4-8.2)
== END ==
LOC: ONC 09:37
PROVIDERS: ATTEND Internal Medicine Hematology & Oncology
DX: C92.10 Chronic myeloid leukemia, BCR/ABL-positive, not having achieved remission (principal); D64.9 Anemia, unspecified
CPT/HCPCS: 80053; 85025

== ENCOUNTER 2020-04-28 12:30 | Emergency (ER) | payer MEDICARE, OTHER ==
[~2020-04-28] VITALS: Ht 165 cm; Wt 80.7 kg
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
[2020-04-28 14:06] VITALS: BP 156/100
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
== END 2020-04-28 14:06 | disposition home or self-care (01) ==
LOC: EDUNIT# 12:30 → ER 12:33
DX: S63.642A Sprain of metacarpophalangeal joint of left thumb, initial encounter (principal); I10 Essential (primary) hypertension; K21.9 Gastro-esophageal reflux disease without esophagitis; F41.9 Anxiety disorder, unspecified; G89.29 Other chronic pain; M54.9 Dorsalgia, unspecified; Z85.6 Personal history of leukemia; Z87.891 Personal history of nicotine dependence; Z88.0 Allergy status to penicillin; Z88.5 Allergy status to narcotic agent; Z88.8 Allergy status to other drugs, medicaments and biological substances; W10.9XXA Fall (on) (from) unspecified stairs and steps, initial encounter; Y92.22 Religious institution as the place of occurrence of the external cause
CPT/HCPCS: 73130

== ENCOUNTER 2020-05-07 10:55 | Emergency (ER) | payer MEDICARE, OTHER ==
[~2020-05-07] VITALS: Ht 165.1 cm; Wt 79.5 kg
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
[2020-05-07 11:35] LABS: BASOPHILS % (AUTO) 1 % (0-10); EOSINOPHILS # (AUTO) 0.1 10^3/uL (0.0-0.3); EOSINOPHILS % (AUTO) 3 % (0-10); HEMATOCRIT 35 % (40-54); LYMPHOCYTES # (AUTO) 0.6 10^3/uL (1.0-4.0); LYMPHOCYTES % (AUTO) 19 % (12-44); MEAN CORPUSCULAR HEMOGLOBIN 33 pg (25-34); MEAN CORPUSCULAR HGB CONC 34 g/dL (32-36); MEAN CORPUSCULAR VOLUME 96 fL (80-99); MEAN PLATELET VOLUME 10.7 fL (9.0-12.2); MONOCYTES # (AUTO) 0.1 10^3/uL (0.0-1.0); MONOCYTES % (AUTO) 2 % (0-12); NEUTROPHILS # (AUTO) 2.2 10^3/uL (1.8-7.8); NEUTROPHILS % (AUTO) 74 % (42-75); PLATELET COUNT 121 10^3/uL (130-400); WHITE BLOOD COUNT 2.9 10^3/uL (4.3-11.0)
[2020-05-07 11:45] LABS: ALBUMIN 3.9 GM/DL (3.2-4.5); INR 0.9 (0.8-1.4); PROTHROMBIN TIME PATIENT 12.6 SEC (12.2-14.7)
[2020-05-07 11:46] LABS: CHLORIDE 113 MMOL/L (98-107); POTASSIUM 4.4 MMOL/L (3.6-5.0); SODIUM 143 MMOL/L (135-145)
[2020-05-07 11:47] LABS: CALCIUM 7.5 MG/DL (8.5-10.1)
[2020-05-07 11:48] LABS: GLUCOSE 113 MG/DL (70-105)
[2020-05-07 11:49] LABS: CARBON DIOXIDE 21 MMOL/L (21-32)
[2020-05-07 11:50] LABS: BILIRUBIN,TOTAL 0.2 MG/DL (0.1-1.0)
[2020-05-07 11:51] LABS: ALKALINE PHOSPHATASE 63 U/L (40-136)
[2020-05-07 11:52] LABS: CREATININE SERUM 0.89 MG/DL (0.60-1.30); GFR ESTIMATED > 60
[2020-05-07 11:53] LABS: BUN/CREATININE RATIO 19
[2020-05-07 11:54] LABS: ALANINE AMINOTRANSFERASE 20 U/L (0-55); MAGNESIUM 1.6 MG/DL (1.6-2.4)
--- NOTE | 2020-05-07 12:07 | Diagnostic Imaging Report ---
Portable erect AP chest at 1147 hours. INDICATION: Chest pain. FINDINGS: The heart size is within normal limits and stable compared to 11/10/2017. The lungs are clear. There is no sign of failure, pneumonia or pleural effusion. The mediastinum is not widened. The osseous structures are intact. IMPRESSION: There is no evidence for active disease. Dictated by: Dictated on workstation # [id number]
[2020-05-07 14:57] VITALS: BP 139/77
== END 2020-05-07 14:57 | disposition home or self-care (01) ==
LOC: EDUNIT# 10:55 → ER 10:56
DX: R07.89 Other chest pain (principal); E83.51 Hypocalcemia; I10 Essential (primary) hypertension; F41.9 Anxiety disorder, unspecified; G47.30 Sleep apnea, unspecified; G89.29 Other chronic pain; R10.9 Unspecified abdominal pain; Z87.828 Personal history of other (healed) physical injury and trauma; Z93.3 Colostomy status; Z87.891 Personal history of nicotine dependence; Z91.5 Personal history of self-harm; Z85.6 Personal history of leukemia; Z88.0 Allergy status to penicillin; Z88.5 Allergy status to narcotic agent; Z88.8 Allergy status to other drugs, medicaments and biological substances
CPT/HCPCS: 36415; 71045; 80053; 83735; 83874; 84484; 85025; 85610; 85730; 93005; 93041

== ENCOUNTER → 2020-05-09 | Outpatient (CLI) | payer MEDICARE, OTHER | LOC: ONC 14:03 | PROVIDERS: ATTEND Internal Medicine Hematology & Oncology | DX: C92.11 Chronic myeloid leukemia, BCR/ABL-positive, in remission (principal); D61.818 Other pancytopenia; D64.9 Anemia, unspecified; G62.9 Polyneuropathy, unspecified; S31.109A Unspecified open wound of abdominal wall, unspecified quadrant without penetration into peritoneal cavity, initial encounter; I10 Essential (primary) hypertension; Z87.19 Personal history of other diseases of the digestive system; Z86.59 Personal history of other mental and behavioral disorders | CPT/HCPCS: 99213 ==

== ENCOUNTER → 2020-05-31 | Outpatient (CLI) | payer MEDICARE, OTHER | LOC: CARD 08:30 | PROVIDERS: ATTEND Physician Assistant | DX: I34.0 Nonrheumatic mitral (valve) insufficiency (principal); I10 Essential (primary) hypertension | CPT/HCPCS: 93306 ==

== ENCOUNTER → 2020-06-06 | Outpatient (CLI) | payer MEDICARE, OTHER ==
[2020-06-06 13:48] LABS: BASOPHILS % (AUTO) 1 % (0-10); EOSINOPHILS # (AUTO) 0.4 10^3/uL (0.0-0.3); EOSINOPHILS % (AUTO) 8 % (0-10); HEMATOCRIT 37 % (40-54); HEMOGLOBIN 12.7 g/dL (13.3-17.7); LYMPHOCYTES # (AUTO) 1.5 10^3/uL (1.0-4.0); LYMPHOCYTES % (AUTO) 33 % (12-44); MEAN CORPUSCULAR HEMOGLOBIN 33 pg (25-34); MEAN CORPUSCULAR HGB CONC 35 g/dL (32-36); MEAN CORPUSCULAR VOLUME 96 fL (80-99); MEAN PLATELET VOLUME 10.9 fL (9.0-12.2); MONOCYTES # (AUTO) 0.3 10^3/uL (0.0-1.0); MONOCYTES % (AUTO) 6 % (0-12); NEUTROPHILS # (AUTO) 2.5 10^3/uL (1.8-7.8); NEUTROPHILS % (AUTO) 53 % (42-75); PLATELET COUNT 177 10^3/uL (130-400); WHITE BLOOD COUNT 4.6 10^3/uL (4.3-11.0)
== END ==
LOC: ONC 13:24
PROVIDERS: ATTEND Internal Medicine Hematology & Oncology
DX: C92.11 Chronic myeloid leukemia, BCR/ABL-positive, in remission (principal); D61.818 Other pancytopenia; D64.9 Anemia, unspecified; I10 Essential (primary) hypertension; G62.9 Polyneuropathy, unspecified; T81.89XA Other complications of procedures, not elsewhere classified, initial encounter; Z79.899 Other long term (current) drug therapy; Z86.59 Personal history of other mental and behavioral disorders; Z87.19 Personal history of other diseases of the digestive system
CPT/HCPCS: 85025; G0463; 99213

== ENCOUNTER → 2020-06-10 | Outpatient (CLI) | payer MEDICARE, OTHER ==
--- NOTE | 2020-06-10 14:51 | Diagnostic Imaging Report ---
INDICATION: Cough and shortness of breath. COMPARISON: Comparison is made with the prior study from May 07, 2020. FINDINGS: The lungs demonstrate no focal infiltrate or consolidation. There is no effusion. There is no pneumothorax. There appears to be mild air trapping as there is some flattening of the diaphragms. Heart size is appropriate. Pulmonary vascularity appears within normal limits. No acute or suspicious osseous abnormality demonstrated. IMPRESSION: Probable mild air trapping. No focal infiltrate or consolidation demonstrated. Heart size is normal and pulmonary vascularity appears normal. Dictated by: Dictated on workstation # [id number]
== END ==
LOC: RAD 14:10
PROVIDERS: ATTEND Nurse Practitioner Family
DX: R05 Cough (principal); R06.02 Shortness of breath
CPT/HCPCS: 71046

== ENCOUNTER → 2020-06-11 | Outpatient (CLI) | payer MEDICARE | LOC: LABNPT 06:24 | PROVIDERS: ATTEND Family Medicine | DX: J02.9 Acute pharyngitis, unspecified (principal); R06.00 Dyspnea, unspecified; R05 Cough; Z20.822 Contact with and (suspected) exposure to COVID-19 | CPT/HCPCS: 87635 ==

== ENCOUNTER → 2020-06-12 | Outpatient (CLI) | payer MEDICARE, OTHER ==
[~2020-06-12] MED LIST changes: +CATHETER FLUSH 10 ML SYR IV PRN; +HOLD METFORMIN - RECEIVED CONTRAST 20 ML VIAL IV SCH; +IOHEXOL 350 MG/ML 100 ML (OMNIPAQUE 350) VIAL IV ONE; +NS 100 ML (IVPB) BAG IV ONE
[2020-06-12 13:57] LABS: MEAN PLATELET VOLUME 10.9 fL (9.0-12.2); WHITE BLOOD COUNT 5.8 10^3/uL (4.3-11.0)
[2020-06-12 14:08] LABS: ALBUMIN 4.4 GM/DL (3.2-4.5)
[2020-06-12 14:09] LABS: CHLORIDE 104 MMOL/L (98-107); POTASSIUM 3.7 MMOL/L (3.6-5.0); SODIUM 141 MMOL/L (135-145)
[2020-06-12 14:11] LABS: GLUCOSE 111 MG/DL (70-105); TOTAL PROTEIN 6.7 GM/DL (6.4-8.2)
[2020-06-12 14:12] LABS: CARBON DIOXIDE 26 MMOL/L (21-32)
[2020-06-12 14:13] LABS: BILIRUBIN,TOTAL 0.3 MG/DL (0.1-1.0)
[2020-06-12 14:15] LABS: ALKALINE PHOSPHATASE 67 U/L (40-136); CREATININE SERUM 1.01 MG/DL (0.60-1.30); GFR ESTIMATED > 60
[2020-06-12 14:16] LABS: BUN/CREATININE RATIO 11
[2020-06-12 14:18] LABS: ALANINE AMINOTRANSFERASE 18 U/L (0-55)
--- NOTE | 2020-06-12 15:03 | Diagnostic Imaging Report ---
EXAMINATION: CT angiography of the chest. TECHNIQUE: Contrast enhanced thin section helical images were obtained through the chest with intravenous contrast timed for the optimal opacification of the arterial structures per CTA protocol. Post-processing, reconstructions and interpretation of angiographic images of the vessels was performed. 3D MIP reconstructions were performed and reviewed. All CT scans use one or more of the following dose optimizing techniques: automated exposure control, MA and/or KvP adjustment based on a patient size and exam type, or iterative reconstruction. HISTORY: Dyspnea, chest pain. COMPARISON: Chest radiograph from 06/10/2020. FINDINGS: Vascular: No filling defect is seen within the pulmonary arteries. The aorta is normal in caliber without dissection or stenosis. There is a partially visualized vascular stent within the infrarenal abdominal aorta. Thyroid: The thyroid is normal. Mediastinum: Heart size is normal without significant pericardial effusion. No suspicious lymphadenopathy. Lungs and airways: The lungs are clear without consolidation, pleural effusion, or pneumothorax. The airways are normal. Upper abdomen: There is diffuse hypoattenuation of the liver, compatible with hepatic steatosis. Surgical changes of the bowel in the upper abdomen are partially visualized. Musculoskeletal: Degenerative changes of the spine without suspicious osseous lesion or compression fracture. IMPRESSION: 1. No findings of pulmonary embolus or other acute abnormality in the chest. Dictated by: Dictated on workstation # [id number]
== END ==
LOC: RAD 13:45
PROVIDERS: ATTEND Nurse Practitioner Family
DX: R06.00 Dyspnea, unspecified (principal); R05 Cough; R07.9 Chest pain, unspecified; Z20.822 Contact with and (suspected) exposure to COVID-19
CPT/HCPCS: 36415; 71275; 80053; 85027; 86738

== ENCOUNTER → 2020-06-19 | Outpatient (CLI) | payer MEDICARE, OTHER ==
[~2020-06-19] VITALS: Ht 165 cm; Wt 78.0 kg
[~2020-06-19] MED LIST changes: -HOLD METFORMIN - RECEIVED CONTRAST 20 ML VIAL IV SCH; -IOHEXOL 350 MG/ML 100 ML (OMNIPAQUE 350) VIAL IV ONE; -NS 100 ML (IVPB) BAG IV ONE
[2020-06-19 09:02] VITALS: BP 98/55
--- NOTE | 2020-06-19 14:39 | Cardiology Stress Test Report ---
Stress Test Report Date of Procedure/Referring: Date of Procedure: Jun 19, 2020 Kristen Salinas Admitting Physician Gagan Mayer MD Indications: CP Baseline Heart Rate: 57 Baseline Blood Pressure: Blood Pressure Systolic: 98 Blood Pressure Diastolic: 55 Vital Signs Date Time Temp Pulse Resp B/P (MAP) Pulse Ox O2 Delivery O2 Flow Rate FiO2 06/19/20 09:02 95 16 98/55 (69) 98 Room Air Baseline Vital Signs Vital Signs Date Time Temp Pulse Resp B/P (MAP) Pulse Ox O2 Delivery O2 Flow Rate FiO2 06/19/20 09:02 95 16 98/55 (69) 98 Room Air Baseline EKG: Baseline EKG: NSR Summary: After explaining the procedure and details to the patient, he signed the consent and was brought to the stress nuclear laboratory. Patient exercised on standard Harsh protocol, EKG, heart rate and blood pressure were monitored continuously, resting and stress doses of radio tracer were injected, imaging was acquired and reviewed in the short axis, horizontal long axis and vertical long axis views Patient was able to exercise for a total of 10 minutes on Harsh protocol, METs 11.7 Maximum heart rate 146 Maximum blood pressure 178/87 Stress EKG, Minimal nondiagnostic changes Recovery EKG, Return to baseline TID: 1.05 SSS: 2 SDS: 2 EF: 55 Conclusion: 1. Excellent exercise tolerance for a total of 10 minutes on standard Harsh protocol, 11.7 METS achieving 89% of maximal expected heart rate 2. Appropriate heart rate and blood pressure response to exercise return to baseline during recovery 3. Nondiagnostic EKG changes with exercise return to baseline during recovery 4. No significant ischemia or infarction on SPECT images 5. Normal left ventricular size, EF 55% CHANTELLE KWAN MD Jun 19, 2020 14:39
== END ==
LOC: CARD 07:45
PROVIDERS: ATTEND Physician Assistant
DX: R07.89 Other chest pain (principal); I10 Essential (primary) hypertension
CPT/HCPCS: 78452; 93017; A9502

== ENCOUNTER → 2020-07-22 | Outpatient (CLI) | payer MEDICARE, OTHER ==
[~2020-07-22] MED LIST changes: -CATHETER FLUSH 10 ML SYR IV PRN; -IMAT400T PO; +IMAT400T6 PO
[2020-07-22 09:49] LABS: BUN/CREATININE RATIO 9; CALCIUM 8.8 MG/DL (8.5-10.1); CARBON DIOXIDE 28 MMOL/L (21-32); CHLORIDE 105 MMOL/L (98-107); GFR ESTIMATED > 60; GLUCOSE 104 MG/DL (70-105); POTASSIUM 3.8 MMOL/L (3.6-5.0); SODIUM 141 MMOL/L (135-145)
== END ==
LOC: LAB 08:59
PROVIDERS: ATTEND Internal Medicine
DX: E83.51 Hypocalcemia (principal); Z79.899 Other long term (current) drug therapy
CPT/HCPCS: 36415; 80048

== ENCOUNTER → 2020-08-06 | Outpatient (CLI) | payer MEDICARE, OTHER ==
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
--- NOTE | 2020-08-06 12:05 | Diagnostic Imaging Report ---
INDICATION: Sacral pain AP and oblique views of the sacroiliac joints does not show any evidence of sacral ileitis. There is no acute fracture seen. IMPRESSION: Unremarkable SI joints Dictated by: Dictated on workstation # [id number]
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
== END ==
LOC: RAD 11:05
PROVIDERS: ATTEND Nurse Practitioner Family
DX: M47.816 Spondylosis without myelopathy or radiculopathy, lumbar region (principal); M16.12 Unilateral primary osteoarthritis, left hip
CPT/HCPCS: 72100; 72202; 73502

== ENCOUNTER → 2020-08-16 | Outpatient (CLI) | payer MEDICARE, OTHER ==
[~2020-08-16] MED LIST changes: +CATHETER FLUSH 10 ML SYR IV PRN; +HOLD METFORMIN - RECEIVED CONTRAST 20 ML VIAL IV SCH; +IOHEXOL 350 MG/ML 100 ML (OMNIPAQUE 350) VIAL IV ONE; +NS 100 ML (IVPB) BAG IV ONE
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
== END ==
LOC: RAD 14:15
PROVIDERS: ATTEND Nurse Practitioner Family
DX: M47.816 Spondylosis without myelopathy or radiculopathy, lumbar region (principal); M95.5 Acquired deformity of pelvis
CPT/HCPCS: 72132; 72191

== ENCOUNTER → 2020-08-29 | Outpatient (CLI) | payer MEDICARE, OTHER ==
[~2020-08-29] MED LIST changes: -CATHETER FLUSH 10 ML SYR IV PRN; -HOLD METFORMIN - RECEIVED CONTRAST 20 ML VIAL IV SCH; -IOHEXOL 350 MG/ML 100 ML (OMNIPAQUE 350) VIAL IV ONE; -NS 100 ML (IVPB) BAG IV ONE
[2020-08-29 13:52] LABS: BASOPHILS % (AUTO) 0 % (0-10); EOSINOPHILS # (AUTO) 0.2 10^3/uL (0.0-0.3); EOSINOPHILS % (AUTO) 4 % (0-10); HEMATOCRIT 39 % (40-54); LYMPHOCYTES # (AUTO) 1.4 10^3/uL (1.0-4.0); LYMPHOCYTES % (AUTO) 25 % (12-44); MEAN CORPUSCULAR HEMOGLOBIN 33 pg (25-34); MEAN CORPUSCULAR HGB CONC 34 g/dL (32-36); MEAN CORPUSCULAR VOLUME 97 fL (80-99); MEAN PLATELET VOLUME 10.6 fL (9.0-12.2); MONOCYTES # (AUTO) 0.4 10^3/uL (0.0-1.0); MONOCYTES % (AUTO) 7 % (0-12); NEUTROPHILS # (AUTO) 3.7 10^3/uL (1.8-7.8); NEUTROPHILS % (AUTO) 64 % (42-75); PLATELET COUNT 161 10^3/uL (130-400); WHITE BLOOD COUNT 5.7 10^3/uL (4.3-11.0)
[2020-08-29 14:08] LABS: ALANINE AMINOTRANSFERASE 26 U/L (0-55); ALKALINE PHOSPHATASE 67 U/L (40-136); BILIRUBIN,TOTAL 0.3 MG/DL (0.1-1.0); BUN/CREATININE RATIO 12; CARBON DIOXIDE 29 MMOL/L (21-32); CHLORIDE 104 MMOL/L (98-107); CREATININE SERUM 1.06 MG/DL (0.60-1.30); GFR ESTIMATED > 60; GLUCOSE 106 MG/DL (70-105); POTASSIUM 4.1 MMOL/L (3.6-5.0); SODIUM 141 MMOL/L (135-145); TOTAL PROTEIN 6.4 GM/DL (6.4-8.2)
== END ==
LOC: ONC 13:41
PROVIDERS: ATTEND Internal Medicine Hematology & Oncology
DX: C92.11 Chronic myeloid leukemia, BCR/ABL-positive, in remission (principal); D61.818 Other pancytopenia; D64.9 Anemia, unspecified; F41.8 Other specified anxiety disorders; I10 Essential (primary) hypertension; S31.109A Unspecified open wound of abdominal wall, unspecified quadrant without penetration into peritoneal cavity, initial encounter; G62.9 Polyneuropathy, unspecified; Z87.19 Personal history of other diseases of the digestive system; Z86.59 Personal history of other mental and behavioral disorders
CPT/HCPCS: 80053; 85025; G0463; 99213

== ENCOUNTER 2020-10-17 09:42 | Outpatient (RCR) | payer MEDICARE, OTHER ==
[~2020-10-17 09:42] MED LIST changes: -SULF1TAB35 PO; +SULF1TAB38 PO
== END 2020-12-05 | disposition home or self-care (01) ==
PROVIDERS: ATTEND Neurological Surgery
DX: M54.5 Low back pain (principal); I10 Essential (primary) hypertension; K21.9 Gastro-esophageal reflux disease without esophagitis

== ENCOUNTER → 2020-11-21 | Outpatient (CLI) | payer MEDICARE, OTHER ==
[2020-11-21 13:50] LABS: BASOPHILS % (AUTO) 1 % (0-10); EOSINOPHILS % (AUTO) 0 % (0-10); HEMATOCRIT 37 % (40-54); HEMOGLOBIN 12.6 g/dL (13.3-17.7); LYMPHOCYTES # (AUTO) 1.7 10^3/uL (1.0-4.0); LYMPHOCYTES % (AUTO) 35 % (12-44); MEAN CORPUSCULAR HEMOGLOBIN 33 pg (25-34); MEAN CORPUSCULAR HGB CONC 34 g/dL (32-36); MEAN CORPUSCULAR VOLUME 97 fL (80-99); MEAN PLATELET VOLUME 10.2 fL (9.0-12.2); MONOCYTES # (AUTO) 0.3 10^3/uL (0.0-1.0); MONOCYTES % (AUTO) 7 % (0-12); NEUTROPHILS # (AUTO) 2.9 10^3/uL (1.8-7.8); NEUTROPHILS % (AUTO) 57 % (42-75); PLATELET COUNT 260 10^3/uL (130-400)
[2020-11-21 14:10] LABS: ALBUMIN 4.2 GM/DL (3.2-4.5); BILIRUBIN,TOTAL 0.4 MG/DL (0.1-1.0); CALCIUM 9.5 MG/DL (8.5-10.1); CREATININE SERUM 0.98 MG/DL (0.60-1.30); POTASSIUM 4.1 MMOL/L (3.6-5.0); TOTAL PROTEIN 6.6 GM/DL (6.4-8.2)
== END ==
LOC: ONC 13:36
PROVIDERS: ATTEND Internal Medicine Hematology & Oncology
DX: C92.11 Chronic myeloid leukemia, BCR/ABL-positive, in remission (principal); D50.9 Iron deficiency anemia, unspecified; D61.818 Other pancytopenia; F32.9 Major depressive disorder, single episode, unspecified; F41.9 Anxiety disorder, unspecified; K70.9 Alcoholic liver disease, unspecified; I10 Essential (primary) hypertension; Z88.0 Allergy status to penicillin; Z88.5 Allergy status to narcotic agent; Z79.899 Other long term (current) drug therapy; Z87.891 Personal history of nicotine dependence
CPT/HCPCS: 80053; 85025; G0463; 99213

== ENCOUNTER → 2021-01-27 | Outpatient (CLI) | payer MEDICARE, OTHER ==
[2021-01-27 10:54] LABS: HEMATOCRIT 42 % (40-54); HEMOGLOBIN 14.6 g/dL (13.3-17.7); MEAN CORPUSCULAR HEMOGLOBIN 33 pg (25-34); MEAN CORPUSCULAR HGB CONC 35 g/dL (32-36); MEAN CORPUSCULAR VOLUME 95 fL (80-99); MEAN PLATELET VOLUME 10.7 fL (9.0-12.2); PLATELET COUNT 173 10^3/uL (130-400); WHITE BLOOD COUNT 4.4 10^3/uL (4.3-11.0)
--- NOTE | 2021-01-27 10:56 | Diagnostic Imaging Report ---
INDICATION: COUGH DYSPNEA. WHEEZING AND SHORTNESS BREATH FOR SEVERAL DAYS. TECHNIQUE: Two view chest 10:58 AM CORRELATION STUDY: 06/10/2020 FINDINGS: The heart size, mediastinal configuration and pulmonary vasculature are within normal limits. The lungs are clear with no consolidating infiltrate. There is no significant pleural effusion or pneumothorax. Visualized osseous structures are unremarkable. IMPRESSION: 1. Negative for acute abnormality of the chest. Dictated by: Dictated on workstation # [id number]
[2021-01-27 11:08] LABS: ALBUMIN 4.3 GM/DL (3.2-4.5); BILIRUBIN,TOTAL 0.3 MG/DL (0.1-1.0); CALCIUM 8.9 MG/DL (8.5-10.1); CREATININE SERUM 0.95 MG/DL (0.60-1.30); POTASSIUM 4.2 MMOL/L (3.6-5.0); TOTAL PROTEIN 6.6 GM/DL (6.4-8.2)
== END ==
LOC: MERGE 10:13 → RAD 10:13
PROVIDERS: ATTEND Nurse Practitioner Family
DX: R05.9 Cough, unspecified (principal); R06.2 Wheezing; R06.02 Shortness of breath
CPT/HCPCS: 36415; 71046; 80053; 85027; 86738

== ENCOUNTER → 2021-03-17 | Outpatient (CLI) | payer MEDICARE, OTHER ==
[2021-03-17 10:10] LABS: BASOPHILS % (AUTO) 0 % (0-10); EOSINOPHILS # (AUTO) 0.1 10^3/uL (0.0-0.3); EOSINOPHILS % (AUTO) 1 % (0-10); HEMATOCRIT 42 % (40-54); HEMOGLOBIN 14.3 g/dL (13.3-17.7); LYMPHOCYTES % (AUTO) 19 % (12-44); MEAN CORPUSCULAR HEMOGLOBIN 33 pg (25-34); MEAN CORPUSCULAR HGB CONC 34 g/dL (32-36); MEAN CORPUSCULAR VOLUME 97 fL (80-99); MEAN PLATELET VOLUME 10.2 fL (9.0-12.2); MONOCYTES # (AUTO) 0.6 10^3/uL (0.0-1.0); MONOCYTES % (AUTO) 6 % (0-12); NEUTROPHILS # (AUTO) 7.7 10^3/uL (1.8-7.8); NEUTROPHILS % (AUTO) 73 % (42-75); PLATELET COUNT 234 10^3/uL (130-400); WHITE BLOOD COUNT 10.5 10^3/uL (4.3-11.0)
[2021-03-17 10:31] LABS: BILIRUBIN,TOTAL 0.3 MG/DL (0.1-1.0); CALCIUM 8.8 MG/DL (8.5-10.1); CREATININE SERUM 0.83 MG/DL (0.60-1.30); POTASSIUM 3.8 MMOL/L (3.6-5.0); TOTAL PROTEIN 6.1 GM/DL (6.4-8.2)
== END ==
LOC: ONC 10:00
PROVIDERS: ATTEND Internal Medicine Hematology & Oncology
DX: C92.11 Chronic myeloid leukemia, BCR/ABL-positive, in remission (principal); D61.818 Other pancytopenia; D50.9 Iron deficiency anemia, unspecified; G62.9 Polyneuropathy, unspecified; I10 Essential (primary) hypertension; E66.9 Obesity, unspecified
CPT/HCPCS: 80053; 82728; 83540; 83550; 85025; G0463; 99213

== ENCOUNTER 2021-04-03 10:34 | Outpatient (CLI) | payer MEDICARE, OTHER ==
[~2021-04-03] VITALS: Ht 165.1 cm; Wt 73.5 kg
[2021-04-03] MEDS ORDERED: diphenhydrAMINE 50 MG/ML INJ (BENADRYL) IV PRN (10:45)
[2021-04-03] MEDS ORDERED: ACETAMINOPHEN 500 MG TAB (TYLENOL) PO PRN (10:45)
[2021-04-03] MEDS ORDERED: SOTROVIMAB 500 MG/NS 50 ML IVPB IV ONE ×2 (10:45)
[2021-04-03] MEDS ORDERED: EPINEPHrine INJECTION 1 MG/ML AMP IM PRN (10:45)
[2021-04-03] MEDS ORDERED: ONDANSETRON 4 MG/2 ML (SDV) Z0FRAN IV PRN (10:45)
[2021-04-03 11:01] VITALS: BP 126/84
[2021-04-03 11:40] VITALS: BP 136/86
== END 2021-04-03 11:45 | disposition home or self-care (01) ==
LOC: INFUSION 10:34
PROVIDERS: ATTEND Nurse Practitioner Family
DX: U07.1 COVID-19 (principal)

== ENCOUNTER → 2021-04-28 | Outpatient (CLI) | payer MEDICARE, OTHER ==
--- NOTE | 2021-04-28 16:03 | Diagnostic Imaging Report ---
INDICATION: Back pain. COMPARISON: None. FINDINGS: Frontal and lateral views of the thoracic spine were obtained. Visualization of the upper thoracic spine is limited on the lateral projection. Alignment and vertebral heights are maintained. There is no fracture or destructive process. There are no large paraspinal masses. Mild multilevel degenerative disease is noted in the thoracic spine. Limited views of the lungs are clear. IMPRESSION: 1. No acute fracture or dislocation of the thoracic spine. 2. Mild multilevel degenerative changes. Dictated by: Dictated on workstation # [id number]
--- NOTE | 2021-04-28 16:05 | Diagnostic Imaging Report ---
INDICATION: Neck pain. COMPARISON: None. FINDINGS: Frontal, lateral, and open-mouth radiographic views of the cervical spine were obtained. Cervical spine is seen down to the C7-T1 level on the lateral view. Evaluation of the static alignment shows reversal of normal lordotic curvature epicentered at the C4 and C5 levels. There appears to be ankylosis of the C4 through C5 vertebral bodies as well. There is no evidence of jumped facets. Open-mouth view shows normal C1-C2 alignment. Vertebral body heights are maintained. There is no acute fracture. There are moderate multilevel degenerative changes consistent with intervertebral disc height loss as well as anterior and posterior endplate osteophyte formations and multilevel facet arthropathy. Surrounding soft tissue structures are unremarkable. Included portions of the lung apices are clear. IMPRESSION: 1. Moderate degenerative changes of the cervical spine. 2. No acute fracture or dislocation. Dictated by: Dictated on workstation # [id number]
== END ==
LOC: RAD 15:06
PROVIDERS: ATTEND Internal Medicine
DX: M47.813 Spondylosis without myelopathy or radiculopathy, cervicothoracic region (principal)
CPT/HCPCS: 72040; 72072

== ENCOUNTER → 2021-06-18 | Outpatient (CLI) | payer MEDICARE, OTHER ==
[2021-06-18 09:52] LABS: BASOPHILS % (AUTO) 0 % (0-10); EOSINOPHILS # (AUTO) 0.1 10^3/uL (0.0-0.3); EOSINOPHILS % (AUTO) 3 % (0-10); HEMATOCRIT 39 % (40-54); HEMOGLOBIN 13.3 g/dL (13.3-17.7); LYMPHOCYTES # (AUTO) 1.6 10^3/uL (1.0-4.0); LYMPHOCYTES % (AUTO) 35 % (12-44); MEAN CORPUSCULAR HEMOGLOBIN 33 pg (25-34); MEAN CORPUSCULAR HGB CONC 34 g/dL (32-36); MEAN CORPUSCULAR VOLUME 98 fL (80-99); MEAN PLATELET VOLUME 10.2 fL (9.0-12.2); MONOCYTES # (AUTO) 0.4 10^3/uL (0.0-1.0); MONOCYTES % (AUTO) 9 % (0-12); NEUTROPHILS # (AUTO) 2.4 10^3/uL (1.8-7.8); NEUTROPHILS % (AUTO) 53 % (42-75); PLATELET COUNT 219 10^3/uL (130-400); WHITE BLOOD COUNT 4.5 10^3/uL (4.3-11.0)
[2021-06-18 10:23] LABS: ALBUMIN 4.1 GM/DL (3.2-4.5); BILIRUBIN,TOTAL 0.5 MG/DL (0.1-1.0); CALCIUM 8.9 MG/DL (8.5-10.1); CREATININE SERUM 0.94 MG/DL (0.60-1.30); POTASSIUM 3.8 MMOL/L (3.6-5.0)
== END ==
LOC: ONC 09:36
PROVIDERS: ATTEND Internal Medicine Hematology & Oncology
DX: C92.21 Atypical chronic myeloid leukemia, BCR/ABL-negative, in remission (principal); D50.9 Iron deficiency anemia, unspecified; D61.818 Other pancytopenia; G62.9 Polyneuropathy, unspecified; S31.134A Puncture wound of abdominal wall without foreign body, left lower quadrant without penetration into peritoneal cavity, initial encounter; I10 Essential (primary) hypertension; E66.9 Obesity, unspecified
CPT/HCPCS: 80053; 81206; 82728; 83540; 83550; 85025; G0463; 36415; 99213

== ENCOUNTER 2021-09-08 15:04 | Outpatient (RCR) | payer MEDICARE, OTHER ==
[2021-09-04 14:55] LABS: BASOPHILS % (AUTO) 0 % (0-10); EOSINOPHILS # (AUTO) 0.1 10^3/uL (0.0-0.3); EOSINOPHILS % (AUTO) 1 % (0-10); HEMATOCRIT 36 % (40-54); HEMOGLOBIN 12.6 g/dL (13.3-17.7); LYMPHOCYTES # (AUTO) 1.3 10^3/uL (1.0-4.0); LYMPHOCYTES % (AUTO) 26 % (12-44); MEAN CORPUSCULAR HEMOGLOBIN 33 pg (25-34); MEAN CORPUSCULAR HGB CONC 35 g/dL (32-36); MEAN CORPUSCULAR VOLUME 94 fL (80-99); MEAN PLATELET VOLUME 10.2 fL (9.0-12.2); MONOCYTES # (AUTO) 0.3 10^3/uL (0.0-1.0); MONOCYTES % (AUTO) 6 % (0-12); NEUTROPHILS # (AUTO) 3.3 10^3/uL (1.8-7.8); NEUTROPHILS % (AUTO) 67 % (42-75); PLATELET COUNT 206 10^3/uL (130-400); WHITE BLOOD COUNT 4.9 10^3/uL (4.3-11.0)
[2021-09-04 15:15] LABS: BILIRUBIN,TOTAL 0.5 MG/DL (0.1-1.0); CREATININE SERUM 0.96 MG/DL (0.60-1.30); POTASSIUM 3.5 MMOL/L (3.6-5.0)
== END 2021-09-18 | disposition home or self-care (01) ==
LOC: ONC 15:04
PROVIDERS: ATTEND Internal Medicine Hematology & Oncology
DX: C92.11 Chronic myeloid leukemia, BCR/ABL-positive, in remission (principal); D61.818 Other pancytopenia; D50.9 Iron deficiency anemia, unspecified; I10 Essential (primary) hypertension; E66.9 Obesity, unspecified; G62.9 Polyneuropathy, unspecified; Z86.59 Personal history of other mental and behavioral disorders; Z87.898 Personal history of other specified conditions
CPT/HCPCS: 36415; 80053; 81206; 82728; 83540; 83550; 85025; 99213

== ENCOUNTER 2021-12-08 08:46 | Outpatient (RCR) | payer MEDICARE, OTHER ==
[2021-12-08 09:08] LABS: BASOPHILS % (AUTO) 1 % (0-10); EOSINOPHILS # (AUTO) 0.3 10^3/uL (0.0-0.3); EOSINOPHILS % (AUTO) 7 % (0-10); HEMATOCRIT 39 % (40-54); HEMOGLOBIN 13.2 g/dL (13.3-17.7); LYMPHOCYTES # (AUTO) 1.3 10^3/uL (1.0-4.0); LYMPHOCYTES % (AUTO) 28 % (12-44); MEAN CORPUSCULAR HEMOGLOBIN 33 pg (25-34); MEAN CORPUSCULAR HGB CONC 34 g/dL (32-36); MEAN CORPUSCULAR VOLUME 95 fL (80-99); MEAN PLATELET VOLUME 10.6 fL (9.0-12.2); MONOCYTES # (AUTO) 0.3 10^3/uL (0.0-1.0); MONOCYTES % (AUTO) 7 % (0-12); NEUTROPHILS # (AUTO) 2.6 10^3/uL (1.8-7.8); NEUTROPHILS % (AUTO) 57 % (42-75); PLATELET COUNT 182 10^3/uL (130-400); WHITE BLOOD COUNT 4.5 10^3/uL (4.3-11.0)
[2021-12-08 09:35] LABS: ALBUMIN 4.1 GM/DL (3.2-4.5); BILIRUBIN,TOTAL 0.3 MG/DL (0.1-1.0); CALCIUM 8.9 MG/DL (8.5-10.1); CREATININE SERUM 0.93 MG/DL (0.60-1.30); POTASSIUM 3.9 MMOL/L (3.6-5.0); TOTAL PROTEIN 6.1 GM/DL (6.4-8.2)
== END 2021-12-19 | disposition home or self-care (01) ==
LOC: ONC 08:46
PROVIDERS: ATTEND Internal Medicine Hematology & Oncology
DX: C92.11 Chronic myeloid leukemia, BCR/ABL-positive, in remission (principal); D61.818 Other pancytopenia; D50.9 Iron deficiency anemia, unspecified; I10 Essential (primary) hypertension; E66.9 Obesity, unspecified; G62.9 Polyneuropathy, unspecified; Z86.59 Personal history of other mental and behavioral disorders; Z87.898 Personal history of other specified conditions
CPT/HCPCS: 80053; 81206; 82728; 83540; 83550; 85025; 88377; G0463; 36415; 99213

== ENCOUNTER 2022-03-09 08:55 | Outpatient (RCR) | payer MEDICARE, OTHER ==
[2022-03-09 09:23] LABS: BASOPHILS # (AUTO) 0.1 10^3/uL (0.0-0.1); BASOPHILS % (AUTO) 1 % (0-10); EOSINOPHILS # (AUTO) 0.6 10^3/uL (0.0-0.3); EOSINOPHILS % (AUTO) 12 % (0-10); HEMATOCRIT 37 % (40-54); HEMOGLOBIN 12.9 g/dL (13.3-17.7); LYMPHOCYTES # (AUTO) 1.4 10^3/uL (1.0-4.0); LYMPHOCYTES % (AUTO) 29 % (12-44); MEAN CORPUSCULAR HEMOGLOBIN 32 pg (25-34); MEAN CORPUSCULAR HGB CONC 35 g/dL (32-36); MEAN CORPUSCULAR VOLUME 92 fL (80-99); MEAN PLATELET VOLUME 10.6 fL (9.0-12.2); MONOCYTES # (AUTO) 0.5 10^3/uL (0.0-1.0); MONOCYTES % (AUTO) 10 % (0-12); NEUTROPHILS # (AUTO) 2.3 10^3/uL (1.8-7.8); NEUTROPHILS % (AUTO) 49 % (42-75); PLATELET COUNT 215 10^3/uL (130-400); WHITE BLOOD COUNT 4.8 10^3/uL (4.3-11.0)
[2022-03-09 09:43] LABS: ALBUMIN 3.9 GM/DL (3.2-4.5); BILIRUBIN,TOTAL 0.3 MG/DL (0.1-1.0); CALCIUM 8.7 MG/DL (8.5-10.1); CREATININE SERUM 0.97 MG/DL (0.60-1.30); POTASSIUM 4.2 MMOL/L (3.6-5.0); TOTAL PROTEIN 6.1 GM/DL (6.4-8.2)
== END 2022-03-21 | disposition home or self-care (01) ==
LOC: ONC 08:55
PROVIDERS: ATTEND Internal Medicine Hematology & Oncology
DX: C92.11 Chronic myeloid leukemia, BCR/ABL-positive, in remission (principal); D50.9 Iron deficiency anemia, unspecified; I10 Essential (primary) hypertension; E66.9 Obesity, unspecified; G62.9 Polyneuropathy, unspecified; Z86.59 Personal history of other mental and behavioral disorders; Z87.898 Personal history of other specified conditions; S39.81XD Other specified injuries of abdomen, subsequent encounter; W34.00XD Accidental discharge from unspecified firearms or gun, subsequent encounter
CPT/HCPCS: 80053; 85025; G0463; 36415; 99213

== ENCOUNTER → 2022-04-27 | Outpatient (CLI) | payer MEDICARE, OTHER ==
[2022-04-27 08:33] LABS: BILIRUBIN,TOTAL 0.4 MG/DL (0.1-1.0); CALCIUM 8.9 MG/DL (8.5-10.1); CREATININE SERUM 1.01 MG/DL (0.60-1.30); POTASSIUM 4.4 MMOL/L (3.6-5.0); TOTAL PROTEIN 6.1 GM/DL (6.4-8.2)
== END ==
LOC: LAB 07:55
PROVIDERS: ATTEND Physician Assistant
DX: E78.2 Mixed hyperlipidemia (principal); I10 Essential (primary) hypertension; E66.9 Obesity, unspecified; R07.89 Other chest pain
CPT/HCPCS: 36415; 80053; 80061

== ENCOUNTER 2022-05-18 08:53 | Outpatient (RCR) | payer MEDICARE, OTHER ==
[2022-05-18 09:46] LABS: BASOPHILS % (AUTO) 1 % (0-10); EOSINOPHILS # (AUTO) 0.3 10^3/uL (0.0-0.3); EOSINOPHILS % (AUTO) 7 % (0-10); HEMATOCRIT 37 % (40-54); LYMPHOCYTES # (AUTO) 1.5 10^3/uL (1.0-4.0); LYMPHOCYTES % (AUTO) 32 % (12-44); MEAN CORPUSCULAR HEMOGLOBIN 32 pg (25-34); MEAN CORPUSCULAR HGB CONC 35 g/dL (32-36); MEAN CORPUSCULAR VOLUME 92 fL (80-99); MEAN PLATELET VOLUME 10.7 fL (9.0-12.2); MONOCYTES # (AUTO) 0.3 10^3/uL (0.0-1.0); MONOCYTES % (AUTO) 6 % (0-12); NEUTROPHILS # (AUTO) 2.5 10^3/uL (1.8-7.8); NEUTROPHILS % (AUTO) 54 % (42-75); PLATELET COUNT 158 10^3/uL (130-400); WHITE BLOOD COUNT 4.6 10^3/uL (4.3-11.0)
[2022-05-18 10:06] LABS: ALBUMIN 3.9 GM/DL (3.2-4.5); BILIRUBIN,TOTAL 0.3 MG/DL (0.1-1.0); CREATININE SERUM 1.07 MG/DL (0.60-1.30); POTASSIUM 4.2 MMOL/L (3.6-5.0); TOTAL PROTEIN 5.9 GM/DL (6.4-8.2)
== END 2022-05-19 | disposition home or self-care (01) ==
LOC: ONC 08:53
PROVIDERS: ATTEND Internal Medicine Hematology & Oncology
DX: C92.11 Chronic myeloid leukemia, BCR/ABL-positive, in remission (principal); D50.9 Iron deficiency anemia, unspecified; I10 Essential (primary) hypertension; E66.9 Obesity, unspecified; G62.9 Polyneuropathy, unspecified; Z86.59 Personal history of other mental and behavioral disorders
CPT/HCPCS: 36415; 80053; 81206; 85025

== ENCOUNTER 2022-05-25 09:32 | Outpatient (RCR) | payer MEDICARE, OTHER ==
[2022-06-09] MEDS ORDERED: MECL-149 (00:30)
[2022-06-09] MEDS ORDERED: BENZ-36 (00:30)
[2022-06-09] MEDS ORDERED: GFCD10B PO (08:30)
== END 2022-06-19 | disposition home or self-care (01) ==
LOC: ONC 09:32
PROVIDERS: ATTEND Internal Medicine Hematology & Oncology
DX: C92.11 Chronic myeloid leukemia, BCR/ABL-positive, in remission (principal); D50.9 Iron deficiency anemia, unspecified; I10 Essential (primary) hypertension; E66.9 Obesity, unspecified; G62.9 Polyneuropathy, unspecified; Z86.59 Personal history of other mental and behavioral disorders

== ENCOUNTER 2022-06-09 00:06 | Emergency (ER) | payer MEDICARE, OTHER ==
[~2022-06-09] VITALS: Ht 165 cm; Wt 71.7 kg
[2022-06-09] MEDS ORDERED: BENZ-36 (00:30)
[2022-06-09] MEDS ORDERED: MECL-149 (00:30)
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
[2022-06-09] MEDS ORDERED: LACTATED RINGERS 1,000 ML IV ONE (04:45)
[2022-06-09 05:05] LABS: BASOPHILS % (AUTO) 0 % (0-10); EOSINOPHILS # (AUTO) 0.3 10^3/uL (0.0-0.3); EOSINOPHILS % (AUTO) 4 % (0-10); HEMATOCRIT 35 % (40-54); HEMOGLOBIN 12.3 g/dL (13.3-17.7); LYMPHOCYTES # (AUTO) 1.2 10^3/uL (1.0-4.0); LYMPHOCYTES % (AUTO) 15 % (12-44); MEAN CORPUSCULAR HEMOGLOBIN 32 pg (25-34); MEAN CORPUSCULAR HGB CONC 35 g/dL (32-36); MEAN CORPUSCULAR VOLUME 91 fL (80-99); MEAN PLATELET VOLUME 10.1 fL (9.0-12.2); MONOCYTES # (AUTO) 0.7 10^3/uL (0.0-1.0); MONOCYTES % (AUTO) 8 % (0-12); NEUTROPHILS # (AUTO) 6.1 10^3/uL (1.8-7.8); NEUTROPHILS % (AUTO) 73 % (42-75); PLATELET COUNT 206 10^3/uL (130-400); WHITE BLOOD COUNT 8.4 10^3/uL (4.3-11.0)
[2022-06-09 05:09] LABS: ALBUMIN 3.7 GM/DL (3.2-4.5); POTASSIUM 3.6 MMOL/L (3.6-5.0)
[2022-06-09 05:11] LABS: CALCIUM 8.6 MG/DL (8.5-10.1)
[2022-06-09 05:12] LABS: TOTAL PROTEIN 5.9 GM/DL (6.4-8.2)
[2022-06-09 05:14] LABS: BILIRUBIN,TOTAL 0.6 MG/DL (0.1-1.0)
[2022-06-09 05:15] LABS: CREATININE SERUM 0.85 MG/DL (0.60-1.30)
[2022-06-09 05:18] LABS: MAGNESIUM 1.8 MG/DL (1.6-2.4)
--- NOTE | 2022-06-09 06:04 | Diagnostic Imaging Report ---
Indication: Cough PA and lateral chest Heart size and pulmonary vascularity are normal. Lungs are clear. There are no effusions or pneumothoraces. IMPRESSION: Negative chest Dictated by: Dictated on workstation # [id number]
[2022-06-09] MEDS ORDERED: RT-ALBUTEROL/IPRATROPIUM 3 ML (DUONEB) VIAL INH ONE (06:45)
[2022-06-09] MEDS ORDERED: IOHEXOL 350 MG/ML 100 ML (OMNIPAQUE 350) VIAL IV ONE (07:45)
[2022-06-09] MEDS ORDERED: HOLD METFORMIN - RECEIVED CONTRAST 20 ML VIAL IV SCH (07:45)
[2022-06-09] MEDS ORDERED: NS 100 ML (IVPB) BAG IV ONE (07:45)
--- NOTE | 2022-06-09 07:47 | Diagnostic Imaging Report ---
PROCEDURE: CT head without contrast. TECHNIQUE: Multiple contiguous axial images were obtained through the brain without the use of intravenous contrast. Auto Exposure Controls were utilized during the CT exam to meet ALARA standards for radiation dose reduction. DATE: June 09, 2022. COMPARISON: CT head without and with intravenous contrast April 06, 2017. INDICATION: 57-year-old male, difficulties with balance. FINDINGS: The ventricles and cerebral spinal fluid spaces are of normal size and configuration for the patient's age. There is no mass effect or midline shift. There is no acute intracranial hemorrhage. There is no abnormal extra-axial fluid collection. The visualized portions of the paranasal sinuses, mastoid air cells and middle ears are well aerated. IMPRESSION: 1. No identified acute intracranial abnormality. Dictated by: Dictated on workstation # [id number]
--- NOTE | 2022-06-09 08:00 | Diagnostic Imaging Report ---
Procedure: CT angiography of the head and CT angiography of the neck with and without contrast. Technique: Contiguous noncontrast images were obtained from the skull base through the vertex. After intravenous contrast administration, helical CT angiography of the neck was performed. Source data was reformatted into 3D MIP projections. Delayed post contrast acquisition was also obtained. Auto Exposure Controls were utilized during the CT exam to meet ALARA standards for radiation dose reduction. Date: June 09, 2022. Indication: 57-year-old male, difficulties with balance. Concern for stroke. Comparison: CT head without contrast June 09, 2022. Findings: The left common carotid artery is patent. The left internal carotid artery is patent. There is calcified plaque involving the cavernous segment of the left internal carotid artery. The left middle cerebral artery is patent. The left anterior cerebral artery is patent. The right anterior cerebral artery is patent. The right middle cerebral artery is patent. There are calcifications of the cavernous segment of the right internal carotid artery. The right internal carotid artery is patent. The right common carotid artery is patent. The left vertebral artery arises directly off the aortic arch. The left vertebral artery is patent. The basilar artery is patent. The left posterior cerebral artery is patent. The right posterior cerebral artery is patent. The right and left posterior inferior cerebellar arteries are patent in their proximal aspects. The right vertebral artery is patent and conventional in origin. The imaged portions of the lungs are clear. There is no evidence of a venous sinus thrombosis. There is no identified abnormal intracranial enhancement. Impression: 1. Patent arterial head and neck vasculature without high-grade stenosis, large vessel occlusion, aneurysm, or dissection. Dictated by: Dictated on workstation # [id number]
[2022-06-09] MEDS ORDERED: NS IV 1000 ML 1,000 ML IV STA (08:16)
[2022-06-09] MEDS ORDERED: guaiFENesin/CODEINE (ROBITUSSIN AC) 10ML UDC PO STA (08:16)
[2022-06-09] MEDS ORDERED: RT-ALBUTEROL SULF 2.5 MG/3 ML PRE-MIX VIAL INH ONE (08:30)
[2022-06-09] MEDS ORDERED: GFCD10B PO (08:30)
[2022-06-09] MEDS ORDERED: ACETAMINOPHEN 500 MG TAB (TYLENOL) PO ONE (08:30)
[2022-06-09 09:53] VITALS: BP 146/80
== END 2022-06-09 09:53 | disposition home or self-care (01) ==
LOC: EDUNIT# 00:06 → ER 00:09
DX: J20.9 Acute bronchitis, unspecified (principal); E87.8 Other disorders of electrolyte and fluid balance, not elsewhere classified; B08.5 Enteroviral vesicular pharyngitis; B86 Scabies; I10 Essential (primary) hypertension; Z87.891 Personal history of nicotine dependence; Z79.51 Long term (current) use of inhaled steroids; Z20.822 Contact with and (suspected) exposure to COVID-19
CPT/HCPCS: 36415; 70450; 70496; 70498; 71046; 80053; 83735; 85025; 87636; 94640

== ENCOUNTER → 2022-06-11 | Outpatient (CLI) | payer MEDICARE, OTHER ==
[~2022-06-11] MED LIST changes: +BENZ-36; +GFCD10B PO; +MECL-149
[2022-06-11 08:44] LABS: BASOPHILS % (AUTO) 0 % (0-10); EOSINOPHILS % (AUTO) 0 % (0-10); HEMATOCRIT 32 % (40-54); HEMOGLOBIN 11.3 g/dL (13.3-17.7); LYMPHOCYTES # (AUTO) 0.8 10^3/uL (1.0-4.0); LYMPHOCYTES % (AUTO) 10 % (12-44); MEAN CORPUSCULAR HEMOGLOBIN 33 pg (25-34); MEAN CORPUSCULAR HGB CONC 36 g/dL (32-36); MEAN CORPUSCULAR VOLUME 91 fL (80-99); MEAN PLATELET VOLUME 9.9 fL (9.0-12.2); MONOCYTES # (AUTO) 0.4 10^3/uL (0.0-1.0); MONOCYTES % (AUTO) 5 % (0-12); NEUTROPHILS # (AUTO) 6.4 10^3/uL (1.8-7.8); NEUTROPHILS % (AUTO) 84 % (42-75); PLATELET COUNT 217 10^3/uL (130-400); WHITE BLOOD COUNT 7.6 10^3/uL (4.3-11.0)
[2022-06-11 08:59] LABS: ALBUMIN 3.7 GM/DL (3.2-4.5); POTASSIUM 3.5 MMOL/L (3.6-5.0)
[2022-06-11 09:00] LABS: CALCIUM 8.7 MG/DL (8.5-10.1)
[2022-06-11 09:02] LABS: TOTAL PROTEIN 6.1 GM/DL (6.4-8.2)
[2022-06-11 09:03] LABS: BILIRUBIN,TOTAL 0.3 MG/DL (0.1-1.0)
[2022-06-11 09:05] LABS: CREATININE SERUM 0.87 MG/DL (0.60-1.30)
--- NOTE | 2022-06-11 09:07 | Diagnostic Imaging Report ---
INDICATION: Cough and weakness and loss of balance. PA and lateral chest obtained at 0851 a.m. Heart and mediastinal silhouette are normal in appearance. The lungs are clear. There is no pneumothorax or pleural fluid. IMPRESSION: Negative chest. Dictated by: Dictated on workstation # [id number]
== END ==
LOC: RAD 08:22
PROVIDERS: ATTEND Physician Assistant
DX: J20.9 Acute bronchitis, unspecified (principal); R53.1 Weakness; R42 Dizziness and giddiness
CPT/HCPCS: 36415; 71046; 80053; 85025

== ENCOUNTER → 2022-06-16 | Outpatient (CLI) | payer MEDICARE, OTHER ==
[2022-06-16 09:42] LABS: BASOPHILS % (AUTO) 0 % (0-10); EOSINOPHILS # (AUTO) 0.1 10^3/uL (0.0-0.3); EOSINOPHILS % (AUTO) 1 % (0-10); HEMATOCRIT 34 % (40-54); LYMPHOCYTES # (AUTO) 1.7 10^3/uL (1.0-4.0); LYMPHOCYTES % (AUTO) 29 % (12-44); MEAN CORPUSCULAR HEMOGLOBIN 32 pg (25-34); MEAN CORPUSCULAR HGB CONC 35 g/dL (32-36); MEAN CORPUSCULAR VOLUME 91 fL (80-99); MONOCYTES # (AUTO) 0.3 10^3/uL (0.0-1.0); MONOCYTES % (AUTO) 6 % (0-12); NEUTROPHILS # (AUTO) 3.7 10^3/uL (1.8-7.8); NEUTROPHILS % (AUTO) 63 % (42-75); PLATELET COUNT 263 10^3/uL (130-400); WHITE BLOOD COUNT 5.9 10^3/uL (4.3-11.0)
[2022-06-16 10:02] LABS: ALBUMIN 3.7 GM/DL (3.2-4.5); BILIRUBIN,TOTAL 0.3 MG/DL (0.1-1.0); CALCIUM 8.5 MG/DL (8.5-10.1); CREATININE SERUM 0.84 MG/DL (0.60-1.30); TOTAL PROTEIN 5.9 GM/DL (6.4-8.2)
== END ==
LOC: LAB 09:29
PROVIDERS: ATTEND Physician Assistant
DX: J18.9 Pneumonia, unspecified organism (principal); D64.9 Anemia, unspecified; E87.6 Hypokalemia
CPT/HCPCS: 36415; 80053; 85025

== ENCOUNTER 2022-08-14 08:06 | Outpatient (RCR) | payer MEDICARE, OTHER ==
[~2022-08-14 08:06] MED LIST changes: +ENAL-70 PO; -ENAL20TA16 PO
[2022-08-14 08:29] LABS: BASOPHILS % (AUTO) 1 % (0-10); EOSINOPHILS # (AUTO) 0.3 10^3/uL (0.0-0.3); EOSINOPHILS % (AUTO) 8 % (0-10); HEMATOCRIT 38 % (40-54); HEMOGLOBIN 13.3 g/dL (13.3-17.7); LYMPHOCYTES # (AUTO) 1.6 10^3/uL (1.0-4.0); LYMPHOCYTES % (AUTO) 39 % (12-44); MEAN CORPUSCULAR HEMOGLOBIN 32 pg (25-34); MEAN CORPUSCULAR HGB CONC 35 g/dL (32-36); MEAN CORPUSCULAR VOLUME 92 fL (80-99); MONOCYTES # (AUTO) 0.4 10^3/uL (0.0-1.0); MONOCYTES % (AUTO) 9 % (0-12); NEUTROPHILS # (AUTO) 1.8 10^3/uL (1.8-7.8); NEUTROPHILS % (AUTO) 44 % (42-75); PLATELET COUNT 182 10^3/uL (130-400); WHITE BLOOD COUNT 4.1 10^3/uL (4.3-11.0)
[2022-08-14 08:47] LABS: ALBUMIN 4.1 GM/DL (3.2-4.5); BILIRUBIN,TOTAL 0.4 MG/DL (0.1-1.0); CALCIUM 8.9 MG/DL (8.5-10.1); CREATININE SERUM 1.13 MG/DL (0.60-1.30); POTASSIUM 3.9 MMOL/L (3.6-5.0); TOTAL PROTEIN 6.1 GM/DL (6.4-8.2)
== END 2022-08-19 | disposition home or self-care (01) ==
LOC: ONC 08:06
PROVIDERS: ATTEND Internal Medicine Hematology & Oncology
DX: C92.11 Chronic myeloid leukemia, BCR/ABL-positive, in remission (principal); D50.9 Iron deficiency anemia, unspecified; I10 Essential (primary) hypertension; E66.9 Obesity, unspecified; G62.9 Polyneuropathy, unspecified; Z86.59 Personal history of other mental and behavioral disorders
CPT/HCPCS: 80053; 81206; 85025

== ENCOUNTER 2022-09-14 08:40 | Outpatient (RCR) | payer MEDICARE, OTHER ==
[2022-09-14 09:04] LABS: BASOPHILS % (AUTO) 1 % (0-10); EOSINOPHILS # (AUTO) 0.4 10^3/uL (0.0-0.3); EOSINOPHILS % (AUTO) 11 % (0-10); HEMATOCRIT 36 % (40-54); HEMOGLOBIN 12.4 g/dL (13.3-17.7); LYMPHOCYTES # (AUTO) 1.4 10^3/uL (1.0-4.0); LYMPHOCYTES % (AUTO) 37 % (12-44); MEAN CORPUSCULAR HEMOGLOBIN 32 pg (25-34); MEAN CORPUSCULAR HGB CONC 35 g/dL (32-36); MEAN CORPUSCULAR VOLUME 92 fL (80-99); MEAN PLATELET VOLUME 10.8 fL (9.0-12.2); MONOCYTES # (AUTO) 0.3 10^3/uL (0.0-1.0); MONOCYTES % (AUTO) 8 % (0-12); NEUTROPHILS # (AUTO) 1.7 10^3/uL (1.8-7.8); NEUTROPHILS % (AUTO) 44 % (42-75); PLATELET COUNT 161 10^3/uL (130-400); WHITE BLOOD COUNT 3.7 10^3/uL (4.3-11.0)
[2022-09-14 09:22] LABS: BILIRUBIN,TOTAL 0.6 MG/DL (0.1-1.0); CALCIUM 8.5 MG/DL (8.5-10.1); CREATININE SERUM 0.88 MG/DL (0.60-1.30); POTASSIUM 3.8 MMOL/L (3.6-5.0); TOTAL PROTEIN 5.8 GM/DL (6.4-8.2)
== END 2022-09-18 | disposition home or self-care (01) ==
LOC: ONC 08:40
PROVIDERS: ATTEND Internal Medicine Hematology & Oncology
DX: C92.11 Chronic myeloid leukemia, BCR/ABL-positive, in remission (principal); D61.818 Other pancytopenia; D50.9 Iron deficiency anemia, unspecified; I10 Essential (primary) hypertension; E66.9 Obesity, unspecified; G62.9 Polyneuropathy, unspecified; S31.109A Unspecified open wound of abdominal wall, unspecified quadrant without penetration into peritoneal cavity, initial encounter; F41.8 Other specified anxiety disorders; Z87.19 Personal history of other diseases of the digestive system
CPT/HCPCS: 36415; 80053; 81206; 85025

== ENCOUNTER 2022-10-01 07:46 | Day surgery (SDC) | payer MEDICARE, OTHER ==
[~2022-10-01] VITALS: Wt 71.7 kg
[2022-10-01] VITALS (11 sets, daily range): BP systolic 105–136; BP diastolic 53–85
[2022-10-01] MEDS ORDERED: NS IV 1000 ML 1,000 ML IV STA (07:59)
[2022-10-01] MEDS ORDERED: MIDAZOLAM 2 MG/2 ML (VERSED) VIAL IVP ONE ×2 (08:00→10:03)
[2022-10-01] MEDS ORDERED: LIDOCAINE 1% INJ 10 ML VIAL INJ ONE (08:15)
[2022-10-01 08:30] LABS: ABSOLUTE RETIC # 37 10e9/uL (24-90); BASOPHILS % (AUTO) 1 % (0-10); EOSINOPHILS # (AUTO) 0.3 10^3/uL (0.0-0.3); EOSINOPHILS % (AUTO) 8 % (0-10); HEMATOCRIT 40 % (40-54); HEMOGLOBIN 14.3 g/dL (13.3-17.7); LYMPHOCYTES # (AUTO) 1.3 10^3/uL (1.0-4.0); LYMPHOCYTES % (AUTO) 35 % (12-44); MEAN CORPUSCULAR HEMOGLOBIN 34 pg (25-34); MEAN CORPUSCULAR HGB CONC 36 g/dL (32-36); MEAN CORPUSCULAR VOLUME 94 fL (80-99); MONOCYTES # (AUTO) 0.3 10^3/uL (0.0-1.0); MONOCYTES % (AUTO) 7 % (0-12); NEUTROPHILS # (AUTO) 1.9 10^3/uL (1.8-7.8); NEUTROPHILS % (AUTO) 49 % (42-75); PLATELET COUNT 182 10^3/uL (130-400); RETICULOCYTE % 0.87 % (0.50-2.40); WHITE BLOOD COUNT 3.8 10^3/uL (4.3-11.0)
[2022-10-01 08:43] LABS: INR 0.8 (0.8-1.4); PROTHROMBIN TIME PATIENT 11.5 SEC (12.2-14.7)
[2022-10-01 09:26] LABS: BAND NEUTROPHILS 3 %; BASOPHILS % (MANUAL) 0 %; EOSINOPHILS % (MANUAL) 15 %; LYMPHOCYTES % (MANUAL) 27 %; MONOCYTES % (MANUAL) 5 %; NEUTROPHILS % (MANUAL) 50 %
[2022-10-01 09:27] LABS: ANISOCYTOSIS SLIGHT
--- NOTE | 2022-10-01 10:38 | Diagnostic Imaging Report ---
INDICATION: Chronic myeloid leukemia. Patient was brought to the CT suite placed on table in the prone position. Axial imaging through the pelvis was performed to evaluate appropriate entry site. The procedure was performed utilizing conscious sedation radiology nursing and constipation monitoring. Patient was given a total of 1 mg of Versed intravenously. Procedure time was approximately 15 minutes. Low back was prepped and draped in usual sterile fashion. Small amount 1% lidocaine was utilized for local anesthesia. A bone marrow biopsy needle was advanced and placed with its tip along the posterior cortex of right iliac bone. Needle was advanced through the cortex utilized the bone marrow drill. 2 bone marrow aspirates were then obtained. Next, bone marrow drill was utilized to obtain a bone marrow core biopsy. Needle was removed and hemostasis was obtained. Patient tolerated the procedure well and left Department in stable condition. IMPRESSION: Successful CT-guided bone marrow aspiration and core biopsy, utilizing conscious sedation. Pathology results are currently pending. Dictated by: Dictated on workstation # [id number]
--- NOTE | 2022-10-02 14:13 | Pre-Op Note & Conscious Sedat ---
Pre-Operative Progress Note Date of Available H&P: Oct 02, 2022 Date H&P Reviewed: Oct 02, 2022 Time H&P Reviewed: 09:00 Pre-Op Diagnosis: leukemia Moderate Sedation PreProcedure Time 09:00 ASA Score 2 Airway Lungs Heart ASA score ASA 1: a normal healthy patient ASA 2: a patient with a mild systemic disease (mid diabetes, controlled hypertension, obesity ASA 3: a patient with a severe systemic disease that limits activity (angina, COPD, prior Myocardial infarction) ASA 4: a patient with an incapacitating disease that is a constant threat to life (CHF, renal failure) ASA 5: a moribund patient not expected to survive 24 hrs. (ruptured aneurysm) ASA 6: a declared brain- patient whose organs are being harvested. For emergent operations, add the letter E after the classification Mallampati Classification Grade 2 Sedation Plan Analgesia, Amnesia, Plan communicated to team members, Discussed options with patient/fam, Discussed risks with patient/fam The patient is an appropriate candidate to undergo the planned procedure, sedation, and anesthesia. The patient immediately re-assessed prior to indication. BRENNON OCASIO MD Oct 02, 2022 14:13
== END 2022-10-01 12:30 ==
LOC: RAD 07:46
PROVIDERS: ATTEND Internal Medicine Hematology & Oncology
DX: C92.11 Chronic myeloid leukemia, BCR/ABL-positive, in remission (principal); K76.9 Liver disease, unspecified; G62.9 Polyneuropathy, unspecified; F32.A Depression, unspecified; F41.9 Anxiety disorder, unspecified; D61.818 Other pancytopenia; D50.9 Iron deficiency anemia, unspecified; S31.139S Puncture wound of abdominal wall without foreign body, unspecified quadrant without penetration into peritoneal cavity, sequela; E66.9 Obesity, unspecified; Z87.891 Personal history of nicotine dependence; Z79.899 Other long term (current) drug therapy
CPT/HCPCS: 36415; 38222; 77012; 85007; 85027; 85045; 85055; 85610; 85730; 99156

== ENCOUNTER → 2022-10-19 | Outpatient (RCR) | payer MEDICARE, OTHER ==
[2022-10-19 09:11] LABS: BASOPHILS % (AUTO) 1 % (0-10); EOSINOPHILS # (AUTO) 0.3 10^3/uL (0.0-0.3); EOSINOPHILS % (AUTO) 5 % (0-10); HEMATOCRIT 38 % (40-54); HEMOGLOBIN 13.2 g/dL (13.3-17.7); LYMPHOCYTES # (AUTO) 1.5 10^3/uL (1.0-4.0); LYMPHOCYTES % (AUTO) 25 % (12-44); MEAN CORPUSCULAR HEMOGLOBIN 33 pg (25-34); MEAN CORPUSCULAR HGB CONC 35 g/dL (32-36); MEAN CORPUSCULAR VOLUME 95 fL (80-99); MEAN PLATELET VOLUME 10.6 fL (9.0-12.2); MONOCYTES # (AUTO) 0.4 10^3/uL (0.0-1.0); MONOCYTES % (AUTO) 6 % (0-12); NEUTROPHILS # (AUTO) 3.7 10^3/uL (1.8-7.8); NEUTROPHILS % (AUTO) 62 % (42-75); PLATELET COUNT 171 10^3/uL (130-400); WHITE BLOOD COUNT 5.9 10^3/uL (4.3-11.0)
[2022-10-19 09:28] LABS: ALBUMIN 4.2 GM/DL (3.2-4.5); BILIRUBIN,TOTAL 0.3 MG/DL (0.1-1.0); CALCIUM 8.8 MG/DL (8.5-10.1); CREATININE SERUM 1.01 MG/DL (0.60-1.30); POTASSIUM 4.3 MMOL/L (3.6-5.0); TOTAL PROTEIN 6.1 GM/DL (6.4-8.2)
== END | disposition home or self-care (01) ==
LOC: ONC 09-21 09:06
PROVIDERS: ATTEND Internal Medicine Hematology & Oncology
DX: C92.11 Chronic myeloid leukemia, BCR/ABL-positive, in remission (principal); D61.818 Other pancytopenia; D50.9 Iron deficiency anemia, unspecified; I10 Essential (primary) hypertension; E66.9 Obesity, unspecified; G62.9 Polyneuropathy, unspecified; S31.109A Unspecified open wound of abdominal wall, unspecified quadrant without penetration into peritoneal cavity, initial encounter; F41.8 Other specified anxiety disorders; Z87.19 Personal history of other diseases of the digestive system
CPT/HCPCS: 36415; 80053; 85025

== ENCOUNTER 2022-11-22 09:10 | Emergency (ER) | payer MEDICARE, OTHER ==
[~2022-11-22] VITALS: Ht 165.1 cm; Wt 72.6 kg
[2022-11-22 09:20] VITALS: BP 115/82
[2022-11-22] MEDS ORDERED: dexAMETHasone INJ 10 MG/ML 1 ML VIAL IM ONE (10:00)
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
[2022-11-22] MEDS ORDERED: TOBR5DRO11 OD (10:15)
== END 2022-11-22 10:27 | disposition home or self-care (01) ==
LOC: EDUNIT# 09:10 → ER 09:13
DX: H00.021 Hordeolum internum right upper eyelid (principal); F17.210 Nicotine dependence, cigarettes, uncomplicated; Z28.311 Partially vaccinated for COVID-19; Z88.0 Allergy status to penicillin; Z28.310 Unvaccinated for COVID-19
CPT/HCPCS: 99282

== ENCOUNTER 2023-01-04 05:49 | Outpatient (CLI) | payer MEDICARE ==
[~2023-01-04] VITALS: Ht 165.1 cm; Wt 71.4 kg
[~2023-01-04 05:49] MED LIST changes: -MECL-149; +MECL-291; +TOBR5DRO11 OD
[2023-01-04] MEDS ORDERED: ZOLP10TA PO (15:02)
[2023-01-04] MEDS ORDERED: IMAT400T7 PO (15:02)
== END 2023-01-04 15:25 | disposition home or self-care (01) ==
LOC: PREOP 05:49
PROVIDERS: ATTEND Podiatrist Foot & Ankle Surgery
DX: Z01.818 Encounter for other preprocedural examination (principal)

== ENCOUNTER 2023-01-06 08:39 | Outpatient (RCR) | payer MEDICARE, OTHER ==
[2023-01-05 14:29] LABS: BASOPHILS % (AUTO) 1 % (0-10); EOSINOPHILS # (AUTO) 0.4 10^3/uL (0.0-0.3); EOSINOPHILS % (AUTO) 7 % (0-10); HEMATOCRIT 39 % (40-54); HEMOGLOBIN 13.6 g/dL (13.3-17.7); LYMPHOCYTES # (AUTO) 1.6 10^3/uL (1.0-4.0); LYMPHOCYTES % (AUTO) 27 % (12-44); MEAN CORPUSCULAR HEMOGLOBIN 33 pg (25-34); MEAN CORPUSCULAR HGB CONC 35 g/dL (32-36); MEAN CORPUSCULAR VOLUME 95 fL (80-99); MONOCYTES # (AUTO) 0.3 10^3/uL (0.0-1.0); MONOCYTES % (AUTO) 5 % (0-12); NEUTROPHILS # (AUTO) 3.5 10^3/uL (1.8-7.8); NEUTROPHILS % (AUTO) 60 % (42-75); PLATELET COUNT 177 10^3/uL (130-400); WHITE BLOOD COUNT 5.8 10^3/uL (4.3-11.0)
[2023-01-05 14:48] LABS: ALANINE AMINOTRANSFERASE 16 U/L (0-55); ALBUMIN 4.6 GM/DL (3.2-4.5); ALKALINE PHOSPHATASE 67 U/L (40-136); BILIRUBIN,TOTAL 0.5 MG/DL (0.1-1.0); BUN/CREATININE RATIO 14; CALCIUM 9.1 MG/DL (8.5-10.1); CARBON DIOXIDE 25 MMOL/L (21-32); CHLORIDE 108 MMOL/L (98-107); CREATININE SERUM 1.01 MG/DL (0.60-1.30); GFR ESTIMATED 86; GLUCOSE 85 MG/DL (70-105); POTASSIUM 3.8 MMOL/L (3.6-5.0); SODIUM 142 MMOL/L (135-145); TOTAL PROTEIN 6.9 GM/DL (6.4-8.2)
[~2023-01-06 08:39] MED LIST changes: +ZOLP10TA PO
[2023-01-11] MEDS ORDERED: CLIN150C2 PO (10:39)
[2023-01-11] MEDS ORDERED: ACHD5005 PO (10:39)
== END 2023-01-19 | disposition home or self-care (01) ==
LOC: ONC 08:39
PROVIDERS: ATTEND Internal Medicine Hematology & Oncology
DX: C92.11 Chronic myeloid leukemia, BCR/ABL-positive, in remission (principal); D61.818 Other pancytopenia; D50.9 Iron deficiency anemia, unspecified; I10 Essential (primary) hypertension; E66.9 Obesity, unspecified; G62.9 Polyneuropathy, unspecified; S31.109A Unspecified open wound of abdominal wall, unspecified quadrant without penetration into peritoneal cavity, initial encounter; F41.8 Other specified anxiety disorders
CPT/HCPCS: 36415; 80053; 85025

== ENCOUNTER 2023-01-11 07:53 | Day surgery (SDC) | payer MEDICARE, OTHER ==
[2023-01-11] VITALS (10 sets, daily range): BP systolic 98–157; BP diastolic 55–106
[~2023-01-11] VITALS: Ht 165.1 cm; Wt 71.4 kg
[2023-01-11] MEDS ORDERED: MIDAZOLAM INJ 2 MG/2 ML VIAL ONE (08:45)
[2023-01-11] MEDS ORDERED: proPOfol INJECTION 200 MG/20 ML VIAL IV ONE (08:45)
[2023-01-11] MEDS ORDERED: LACTATED RINGERS 1,000 ML 1,000 ML IV PRN (08:45)
[2023-01-11] MEDS ORDERED: CLINDAMYCIN 600 MG/50 ML IVPB 50 ML IV ONE (08:45)
[2023-01-11] MEDS ORDERED: dexAMETHasone INJ 10 MG/ML 1 ML VIAL ONE ×2 (08:45→08:54)
[2023-01-11] MEDS ORDERED: LIDOCAINE PF 2% 5 ML VIAL ONE (08:45)
[2023-01-11] MEDS ORDERED: ONDANSETRON INJECTION 4 MG/2 ML (SDV) ONE (08:45)
[2023-01-11] MEDS ORDERED: BUPIVACAINE 0.5% 30 ML VIAL ONE (08:54)
[2023-01-11] MEDS ORDERED: LIDOCAINE 1% INJ 20 ML VIAL ONE (08:54)
--- NOTE | 2023-01-11 09:27 | Progress Note-Pre Operative ---
Pre-Operative Progress Note Date of Available H&P: Jan 11, 2023 Date H&P Reviewed: Jan 11, 2023 Time H&P Reviewed: 09:27 Pre-Operative Diagnosis: Hallux Valgus, left YANDY NEWTON DPSindy Jan 11, 2023 09:27
[2023-01-11] MEDS ORDERED: morphine INJ 10 MG/ML 1ML (SYR OR VIAL) ONE (09:32)
[2023-01-11] MEDS ORDERED: LIDOCAINE 1% INJ 20 ML VIAL INJ ONE (09:59)
[2023-01-11] MEDS ORDERED: dexAMETHasone INJ 10 MG/ML 1 ML VIAL INJ ONE (10:00)
[2023-01-11] MEDS ORDERED: BUPIVACAINE 0.5% 30 ML VIAL INJ ONE (10:22)
[2023-01-11] MEDS ORDERED: SEVOFLURANE (ULTANE) 15 ML INHAL SOLN ONE (10:29)
--- NOTE | 2023-01-11 10:32 | Progress Note-Post Operative ---
Post-Operative Progess Note Surgeon (s)/Russet Repairer (s) Surgeon YANDY NEWTON DPM Russet Repairer: None Pre-Operative Diagnosis Hallux Valgus, left Post-Operative Diagnosis Same Procedure & Operative Findings Date of Procedure 01/11/23 Procedure Performed/Findings Hussain-José Luis bunionectomy, left Anesthesia Type General Estimated Blood Loss Estimated blood loss (mL): minimal Specimens/Packing Specimens Removed none YANDY NEWTON DPM Jan 11, 2023 10:32
[2023-01-11] MEDS ORDERED: ACHD5005 PO (10:39)
[2023-01-11] MEDS ORDERED: CLIN150C2 PO (10:39)
[2023-01-11] MEDS ORDERED: LACTATED RINGERS 1,000 ML 1,000 ML IV SCH (10:45)
[2023-01-11] MEDS ORDERED: HYDROcodone/ACETAMINOPHEN 5 MG/325 MG TABLET PO PRN (10:45)
[2023-01-11] MEDS ORDERED: morphine INJ 10 MG/ML 1ML (SYR OR VIAL) IVP ONE (10:45)
[2023-01-11] MEDS ORDERED: ONDANSETRON INJECTION 4 MG/2 ML (SDV) IVP PRN (10:45)
--- NOTE | 2023-01-11 17:51 | Diagnostic Imaging Report ---
EXAMINATION: Left foot radiographs, 2 views. COMPARISON: None. HISTORY: 57-year-old male, left foot surgery. FINDINGS: There are osteotomy changes of the distal metaphysis of the first metatarsal with fixation pin. There is also procedure related material at the level of the first proximal phalanx with osteotomy of the first proximal phalanx. There is a calcaneal heel spur. There is soft tissue swelling near areas of postoperative related change with a small amount of soft tissue gas. There is no cortical or aggressive bone destruction. There is no unexpected fracture. IMPRESSION: 1. Postoperative changes of the first digit as above without identified complication. Dictated by: Dictated on workstation # [id number]
--- NOTE | 2023-01-11 20:01 | OPERATIVE REPORT ---
DATE OF SERVICE: 01/11/2023 SURGEON: Yandy Newton DPM. PREOPERATIVE DIAGNOSIS: Hallux abductovalgus metatarsal primus varus, left. POSTOPERATIVE DIAGNOSIS: Hallux abductovalgus metatarsal primus varus, left. PROCEDURE: Modified Hussain-José Luis bunionectomy, left. WOUND CARE: Clean. ANESTHESIA: General. HEMOSTASIS: Pneumatic thigh tourniquet at 250 mmHg. INDICATIONS: This 57-year-old male presents complaining of a painful left foot. Conservative therapy is met with unsatisfactory results and the patient is agreeable to surgical intervention after risks and complications were discussed at length. No guarantees were extended to the patient and he is willing to proceed. DESCRIPTION OF PROCEDURE: The patient was brought back to the operating table and placed in secure supine position. General anesthetic was then induced. Appropriate timeout was performed. A preoperative local anesthetic was administered utilizing 10 mL of 1:1 mixture of 1% Xylocaine and 0.5% Marcaine injected in a Krishna block. The left foot was then prepped and draped in the normal sterile manner. The left foot was then elevated, allowed to exsanguinate after which the tourniquet was inflated to 250 mmHg. Attention was then directed to the dorsal aspect of the left first metatarsophalangeal joint where a 6 cm longitudinal linear incision was created. The incision was deepened in the same plane with great care to identify and retract all vital neurovascular structures. Only necessary blood vessels were cauterized as encountered. The incision was deepened down to the capsule tissue where a longitudinal capsulotomy was performed. The capsular tissue was reflected medially and laterally, exposing the hypertrophic medial eminence to the left first metatarsal head, which was resected utilizing a power sagittal saw. Next, a lateral release was performed with blunt dissection into the first intermetatarsal area where a lateral capsulorrhaphy and release of the conjoined tendon of the adductor hallucis as well as a fibular sesamoidal ligament release was performed. The wound was flushed with copious amounts of normal saline. Attention was redirected to the medial aspect of the first metatarsal where a Chevron type osteotomy was performed allowing the capital fragment to translocate laterally and was fixated in its corrected position utilizing a 0.062 threaded K-wire driven from dorsal proximal to plantar distal across the osteotomy. Excellent bony apposition and fixation was appreciated this time. The K-wire was cut flush with the dorsal aspect of the first metatarsal after which the head was further contoured and smoothed with a power bur. The wound was flushed with copious amounts of normal saline. Attention was then directed to the proximal phalanx of the left hallux where a subperiosteal dissection was carried out to the diaphysis after which a wedge of bone was resected with the base, medial and lateral cortices held intact. Once the wedge of bone was resected, the gap was closed, noting good reduction of the lateral angulation of the left hallux. Two pilot steam yacht holes were created at the dorsal medial aspect of the osteotomy, after which a 28-gauge monofilament wire was passed through and secured the osteotomy in a closed position. Excellent bony apposition and fixation was appreciated at this time. The wound was flushed with copious amounts of normal saline throughout the procedure and closure was then performed in layers. Deep closure was performed with 3-0 Vicryl, superficial with 4-0 Vicryl, skin closure with 4-0 V-Loc in a subcuticular stitch. Postoperative injection consisted of 14 mL of 0.5% Marcaine injected in a local infusion to the surgical site followed by 10 mg of dexamethasone into the first intermetatarsal space. The tourniquet was released, noting appropriate capillary refill time to all digits of the left foot. Postoperative dressing consisted of Betadine-soaked Adaptic over Steri-Strips, sterile 4 x 4's, sterile Kerlix all secured with a Coban wrap. The patient tolerated the anesthesia and procedure well and was transported from the operating room to the recovery area with vital signs stable and vascular status intact to all digits of the left foot. He was given a prescription for clindamycin as well as hydrocodone. He is to follow up in my office in 10 days period of time or sooner if necessary. Job ID: [id number] DocumentID: [id number] Dictated Date: 01/11/2023 10:53:14 Forensic Examiner Date: 01/11/2023 19:59:00 Dictated By: YANDY NEWTON DPM
== END 2023-01-11 12:35 | disposition home or self-care (01) ==
LOC: SDC 07:53
PROVIDERS: ATTEND Podiatrist Foot & Ankle Surgery
DX: M20.12 Hallux valgus (acquired), left foot (principal); M20.32 Hallux varus (acquired), left foot; I10 Essential (primary) hypertension; C93.10 Chronic myelomonocytic leukemia not having achieved remission; Z87.891 Personal history of nicotine dependence
CPT/HCPCS: 28299; 73620; 87081; C1713